=== PATIENT | male | born 1940 | race Caucasian/White ===

== ENCOUNTER 2016-12-02 12:09 | Inpatient (IN) | payer OTHER ==
[~2016-12-02] VITALS: Ht 167.6 cm; Wt 70.9 kg
[~2016-12-02 12:09] MED LIST: ALL180 PO; ASPI81TA28 PO; ATOR-26 PO; CARV3.122 PO; CMD5 PO; INSUINJ4 SQ; ISOS30TA3 PO; LEVO25TA5 PO; LNX125 PO; NTRSLP4 SL; NVLGIPEN SC; SPR25 PO; TORS20TA2 PO
--- NOTE | 2016-12-02 13:58 | DIAGNOSTIC IMAGING REPORT ---
LEFT FOOT MIN 3 VIEWS ROUTINE CLINICAL HISTORY: Left flank pain COMPARISON: None. DISCUSSION: The bony mineralization appears normal for age. There are osteoarthritic changes at the level of the first metatarsal phalangeal joint. There are vascular calcifications present. There is a small plantar calcaneal spur. There is no evidence for soft tissue swelling. IMPRESSION: 1. No acute fracture 2. Mild osteoarthritic changes at the level of the first metatarsal phalangeal joint Electronically signed by: Monster Cody M.D. 12/02/2016 1:57 PM
[2016-12-02 14:12] LABS: BASO % 0.5 %; BASO ABS # 0.03 K/uL (0-0.2); COMPLETE YES; IG% 0.2 %; LYMPH % 15.8 %; LYMPH ABS # 1.01 K/uL (1.2-3.4); MEAN CELL VOLUME 98.8 fL (80-100); MEAN CORPUSCULAR HEMOGLOBIN 32.6 pg (25-34); MEAN PLATELET VOLUME 10.7 fL (7.4-10.4); MONO % 6.9 %; NEUT % 73.6 %; PLATELET COUNT 119 K/uL (130-400); RED BLOOD COUNT 4.05 M/uL (4.7-6.1)
[2016-12-02 14:23] LABS: INR 2.2 (0.9-1.1); PARTIAL THROMBOPLASTIN RATIO 1.4; PROTHROMBIN TIME (PATIENT) 23.9 SECONDS (9.0-12.0)
[2016-12-02] MEDS ORDERED: LEVO100T PO (14:34)
[2016-12-02] MEDS ORDERED: NRN100 PO (14:34)
[2016-12-02] MEDS ORDERED: SACU1TAB PO (14:34)
[2016-12-02] MEDS ORDERED: WARF-246 PO (14:34)
[2016-12-02 14:42] LABS: BUN/CREATININE RATIO 30.3 (10-20); CALCIUM 9.2 mg/dl (8.5-10.1); CREATININE 1.7 mg/dl (0.60-1.40); POTASSIUM 4.7 mmol/L (3.5-5.1); URIC ACID 9.8 mg/dl (2.6-7.2)
[2016-12-02 15:00] LABS: BETA-HYDROXYBUTYRATE 0.71 mg/dL (0.2-2.81)
--- NOTE | 2016-12-02 15:22 | DIAGNOSTIC IMAGING REPORT ---
LEFT LOWER EXTREMITY VENOUS DOPPLER CLINICAL HISTORY: Left foot pain. COMPARISON STUDY: No previous studies for comparison. TECHNIQUE: Sonography of the deep venous system of the left lower extremity was performed. Compression and augmentation were evaluated. FINDINGS: The left common femoral, superficial femoral and popliteal veins were compressible. Augmentation was normal. Flow was shown within the deep calf vessels. IMPRESSION: No evidence of deep venous thrombus within the left lower extremity. Electronically signed by: Ed Phillips M.D. 12/02/2016 3:20 PM
[2016-12-02] MEDS ORDERED: NovoLIN-R INSULIN PER UNIT CHARGE SC STA (15:27)
[2016-12-02] MEDS ORDERED: OXYCODONE HCL IR 5 MG TAB (IMMEDIATE RELEASE) PO STA (15:27)
--- NOTE | 2016-12-02 15:43 | DIAGNOSTIC IMAGING REPORT ---
ULTRASOUND LEFT LOWER EXTREMITY ARTERIAL; ANKLE-BRACHIAL INDICES CLINICAL HISTORY: Left leg pain. TECHNIQUE: Real-time, grayscale, and color Doppler sonography of the arteries of the left lower extremities performed from the inguinal crease to the foot. Ankle-brachial indices are calculated. Ankle brachial indices: Right brachial pressure measures 104. Pressures in the right posterior tibial artery measure 98 for an SONNY of 0.94. Pressures in the right dorsalis pedis could not be calculated as the vessel is noncompressible. Pressures in the left posterior tibial artery measure 68 for an SONNY of 0.65, and pressures in the left dorsalis pedis artery measure 111 for an SONNY of 1.07. Left lower extremity: There is moderate to advanced atherosclerotic plaque and irregularity seen throughout the arteries of the left lower extremity. The left common femoral artery is patent demonstrates biphasic waveforms. Velocities in the left common femoral artery measure up to 67 cm/s. The left profundus femoris artery is patent with velocities measuring up to 149 cm/s. There are monophasic to biphasic waveforms seen in the left proximal superficial femoral artery velocities measuring up to 110 cm/s. There is thrombosis of the mid left superficial femoral artery with collateral vessels. This reconstitutes in the distal superficial femoral artery. There are monophasic waveforms in the distal superficial femoral artery velocities measuring up to 102 cm/s. There are monophasic to biphasic waveforms in the left popliteal artery with blunted arterial upstrokes. Velocities measure up to 30 cm/s the popliteal artery. There is three-vessel runoff to the foot with monophasic flow in the posterior tibial and peroneal arteries. There are monophasic to biphasic waveforms in the anterior tibial artery with velocities measuring up to 63 cm/s. The dorsalis pedis artery is patent with velocities measuring up to 19 cm/s. IMPRESSION: 1. Atherosclerotic plaque and peripheral arterial disease as detailed above. 2. There is thrombosis of the mid left superficial femoral artery with large collateral vessels and reconstitution in the distal left superficial femoral artery. 3. There is three-vessel runoff to the foot. 4. Ankle-brachial indices as above. Electronically signed by: Chester Das M.D. 12/02/2016 3:41 PM
[2016-12-02] MEDS ORDERED: OXGN (17:16)
[2016-12-02] MEDS ORDERED: DMD20 PO (17:16)
[2016-12-02] MEDS ORDERED: INSDGIPEN SC (17:16)
[2016-12-02] MEDS ORDERED: EPLE25TA3 PO (17:16)
[2016-12-02] MEDS ORDERED: LEVO125T72 PO (17:16)
[2016-12-02] MEDS ORDERED: GLUCAGON FOR INJ 1 MG VIAL SQ PRN (17:30)
[2016-12-02] MEDS ORDERED: ACETAMINOPHEN 325 MG TAB PO PRN (17:30)
[2016-12-02] MEDS ORDERED: ONDANSETRON INJ 2 MG/ML 2 ML VIAL IV PRN (17:30)
[2016-12-02] MEDS ORDERED: GLUCOSE 40% GEL 15 GM TUBE PO PRN (17:30)
[2016-12-02] MEDS ORDERED: DEXTROSE 50% 50 ML SYR IV PRN (17:30)
[2016-12-02] MEDS ORDERED: GLUCOSE 10 TABS/TUBE PO PRN (17:30)
[2016-12-02] MEDS ORDERED: HYDROmorphone INJ 1 MG/ML SYR IV PRN (17:45)
--- NOTE | 2016-12-02 18:13 | History and Physical ---
History & Physical Date & Time of Service: Dec 02, 2016 at 17:43 Chief Complaint: L Foot Pain Primary Care Physician: Morris Pearson D.O. 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 Pt reports that 1 week ago he developed L foot pain that he describes as waxing and waning 5/10 "throbbing" pain that at times is sharp and stabbing. Pain is alleviated with elevation of leg and aggravated with ambulation. He has not been taking any pain medication at home. Sxs are assoc with erythema and swelling. He denies similar sxs in the past. Pt denies h /o gout or DVT. He does not drink alcohol. Pt denies fever/chills, chest pain, palpitations, SOB, wheezing, abd pain, N/V, bowel or bladder issues, calf pain, lightheadedness/dizziness. In the ED, vitals are stable. Pt is afebrile with no leukocytosis. Creat 1.7. Glucose 419. Uric acid 9.8. INR 2.2. L foot xray negative for fx. LLE US negative for DVT. LLE arterial US + thrombosis of mid-L superficial femoral artery with large collateral vessels. Pt will be admitted for further evaluation and treatment. Past Medical/Surgical History Medical Problems: (1) CHF (congestive heart failure) Status: Chronic (2) DM2 (diabetes mellitus, type 2) Status: Chronic (3) Heart disease Status: Chronic (4) History of left heart catheterization (LHC) Status: Chronic (5) HLD (hyperlipidemia) Status: Chronic (6) HTN (hypertension) Status: Chronic (7) Hypothyroidism Status: Chronic (8) ICD (implantable cardioverter-defibrillator) in place Status: Chronic (9) Ischemic cardiomyopathy Status: Chronic Surgical Problems: (1) Hx of CABG Permanent Comment: x2 2006 Status: Chronic (2) Hx of tonsillectomy Status: Chronic Family History FH: diabetes mellitus FH: lung disease Social History Smoking Status: Former Smoker (10 pack year history; quit 1969) Alcohol Use: none Drug Use: none Marital Status: Housing status: lives with family Occupational Status: retired Immunizations History of Influenza Vaccine: Yes History of Tetanus Vaccine?: Yes History of Pneumococcal: Yes History of Hepatitis B Vaccine: No Multi-Drug Resistant Organisms History of MDRO: No Allergies Coded Allergies: No Known Drug Allergy (Verified Allergy, Unknown, ., 12/02/16) Home Medications Scheduled Aspirin (Aspirin Ec), 81 MG PO DAILY Atorvastatin (Lipitor), 40 MG PO DAILY Carvedilol (Coreg), 3.125 MG PO BID Digoxin (Digoxin), 0.125 MG PO DAILY@16 Eplerenone (Eplerenone), 12.5 MG PO DAILY Insulin Glargine (Lantus Solostar), 10 UNITS SC HS Isosorbide Mononitrate Ext Rel (Imdur Ext Rel), 15 MG PO QAM Levothyroxine Sodium (Synthroid), 125 MCG PO DAILY Oxygen (Oxygen), 2 LITERS NA HS Sacubitril-Valsartan (Entresto 24-26 mg), 1 TAB PO BID Torsemide (Torsemide), 20 MG PO BID Warfarin Sodium (Warfarin Sodium), 1 TAB PO UD Scheduled PRN Insulin Aspart (Novolog Flexpen), 0 UNITS SC ACHS PRN for Blood sugar Nitroglycerin (Nitrostat), 0.4 MG SL UD PRN for Chest Pain Review of Systems Constitutional: No chills, No fatigue, No fever, No weakness Eyes: No worsening of vision Respiratory: No cough, No shortness of breath Cardiovascular: No chest pain, No claudication, No palpitations Abdomen: No constipation, No diarrhea, No nausea, No pain, No vomiting Musculoskeletal: + problem reported (L foot pain, erythema and edema), No calf pain Genitourinary - Male: No dysuria Neurologic: No weakness Psychiatric: No depression symptoms Endocrine: No fatigue Hematologic / Lymphatic: No abnormal bleeding/bruising Integumentary: No new/changing skin lesions Physical Exam Vital Signs Date Time Temp Pulse Resp B/P Pulse Ox O2 Delivery O2 Flow Rate FiO2 12/02/16 16:43 90 18 124/75 97 Room Air 12/02/16 14:06 61 20 102/64 98 Room Air 12/02/16 12:15 36.5 81 18 115/62 99 Room Air General Appearance: WD/WN, no apparent distress, + pertinent finding (Pt is sittign up in bed with at bedside ) Head: normocephalic, atraumatic Eyes: normal inspection ENT: hearing grossly normal Neck: supple Respiratory/Chest: chest non-tender, lungs clear, normal breath sounds, no respiratory distress Cardiovascular: regular rate, rhythm, no murmur Abdomen/GI: normal bowel sounds, non tender, soft Back: normal inspection Extremities/Musculoskelatal: no calf tenderness, + pertinent finding (L foot diffusely tender to palpation with increased erythema and edema compared to R. 2 + dorsalis pedis pulse in R foot; unable to appreciate dosalis pedis or posterior tobial pulse in L foot) Neurologic/Psych: alert, normal mood/affect, oriented x 3 Skin: warm/dry, no rash Diagnostics Laboratory Results Results Past 24 Hours Test 12/02/16 14:00 12/02/16 17:31 Range/Units White Blood Count 6.40 4.8-10.8 K/uL Red Blood Count 4.05 4.7-6.1 M/uL Hemoglobin 13.2 14.0-18.0 g/dL Hematocrit 40.0 42-52 % Mean Corpuscular Volume 98.8 80-100 fL Mean Corpuscular Hemoglobin 32.6 25-34 pg Mean Corpuscular Hemoglobin Concent 33.0 32-36 g/dl Platelet Count 119 130-400 K/uL Mean Platelet Volume 10.7 7.4-10.4 fL Neutrophils (%) (Auto) 73.6 % Lymphocytes (%) (Auto) 15.8 % Monocytes (%) (Auto) 6.9 % Eosinophils (%) (Auto) 3.0 % Basophils (%) (Auto) 0.5 % Neutrophils # (Auto) 4.72 1.4-6.5 K/uL Lymphocytes # (Auto) 1.01 1.2-3.4 K/uL Monocytes # (Auto) 0.44 0.11-0.59 K/uL Eosinophils # (Auto) 0.19 0-0.5 K/uL Basophils # (Auto) 0.03 0-0.2 K/uL RDW Standard Deviation 55.1 36.4-46.3 fL RDW Coefficient of Variation 15.1 11.5-14.5 % Immature Granulocyte % (Auto) 0.2 % Immature Granulocyte # (Auto) 0.01 0.00-0.02 K/uL Prothrombin Time 23.9 9.0-12.0 SECONDS Prothromb Time International Ratio 2.2 0.9-1.1 Activated Partial Thromboplast Time 35.5 21.0-31.0 SECONDS Partial Thromboplastin Ratio 1.4 Sodium Level 138 136-145 mmol/L Potassium Level 4.7 3.5-5.1 mmol/L Chloride Level 101 98-107 mmol/L Carbon Dioxide Level 28 21-32 mmol/L Anion Gap 9.0 3-11 mmol/L Blood Urea Nitrogen 52 7-18 mg/dl Creatinine 1.70 0.60-1.40 mg/dl Est Creatinine Clear Calc Drug Dose 34.4 ml/min Estimated GFR () 45.0 Estimated GFR (Non- 38.9 BUN/Creatinine Ratio 30.3 10-20 Random Glucose 419 70-99 mg/dl Uric Acid 9.8 2.6-7.2 mg/dl Calcium Level 9.2 8.5-10.1 mg/dl Beta-Hydroxybutyric Acid 0.71 0.2-2.81 mg/dL Diagnostic Radiology L FOOT XRAY IMPRESSION: 1. No acute fracture 2. Mild osteoarthritic changes at the level of the first metatarsal phalangeal joint LLE VENOUS US IMPRESSION: No evidence of deep venous thrombus within the left lower extremity. LLE ARTERIAL US IMPRESSION: 1. Atherosclerotic plaque and peripheral arterial disease as detailed above. 2. There is thrombosis of the mid left superficial femoral artery with large collateral vessels and reconstitution in the distal left superficial femoral artery. 3. There is three-vessel runoff to the foot. 4. Ankle-brachial indices as above. EKG EKG: AV dual paced rhythm at 61 bpm with no acute ischemic changes; when compared to EKG from 04/28/16 PVCs are no longer present Impression Assessment and Plan L FOOT PAIN pt presents with L foot pain assoc with erythema and edema -admit observation status to med/surg -afebrile with no leukocytosis -L foot xray negative for fx and LLE venous US negative for DVT -LLE arterial US + thrombosis of mid-L superficial femoral artery with large collateral vessels -cannot obtain CTA angiogram of LLE due to chronic kidney disease -pt already on Coumadin with therapeutic INR - lactic acid -wnl -consult vascular surgery, Dr. Truong-pending input -monitor CKD STAGE 3 -creatinine currently 1.7; baseline 1.3-1.5 -monitor with prp daily and avoid nephrotoxic agents when able CAD -s/p CABG x 2 in 2006 -ICD placed 2012 -cont ASA, BB, Imdur, statin -pt denies acute coronary sxs SYSTOLIC CHF -pt does not appear fluid overloaded -echo 06/13/16 EF 27% with akinesis and thinning of inferior, inferolateral, anterolateral and apical henriquez as well as L ventricular wall segments severely hypokinetic. Mild aortic regurg, mod mitral regurg and mod tricuspid regurg -cont digoxin, BB, torsemide and eplerenone -monitor I&Os and daily weights H/O MURAL THROMBUS OF CARDIAC APEX -see echo results above -cont Coumadin -INR therapeutic at 2.2; continue to monitor daily INSULIN-DEPENDENT DM 2 -recent A1C 9.9; patient is non-compliant with ISS -cont Lantus -start ISS -monitor BSG ACHS -consult dinkey engine firer/fireman to review ISS protocol HYPOTHYROIDISM -cont levothyroxine HTN -BP stable -cont Coreg and Entresto -monitor DYSLIPIDEMIA -cont statin DVT PROPHYLAXIS -cont Coumadin CODE STATUS -FULL CODE status per discussion with patient upon admission DISPO -Pt seen in collaboration with Dr. Avila. Please see her addendum for further details. Thanks! pt seen and examined, in agreement with above H&P 76 yo M presented with acute left foot pain -on going for past few days , worsened today Xray of left foot -no evidence of Fx has elevated uric acid level L foot xray negative for fx and LLE venous US negative for DVT -LLE arterial US + thrombosis of mid-L superficial femoral artery with large collateral vessels P/E: Gen ; no apparent distress , comfortable HEENT: sclera non icteric , PERRLA/EOMI HT: regular S1/S2 Lungs: CTA abdomen: soft. non tender EXT: left automatic bow maker machine tender and swollen most pronounced at ist metatarsal joint ; + erythema , normal exam of rt foot Neuro; no focal neurological deficit A/P : Left foot pain : Gout ? vs inflammatory arthritis -pt does not prior hx of Gout attack + warmth /erythema elevated uric acid level , will order for C reactive protein, Sed rate can not treat with NSAID -indomethacin due to YASIR /CKD ordered for Prednisone 5 mg PO daily cont pain control keep foot elevated LEFT LOWER EXT ARTERIAL THROMBOSIS : has prior significant PVD lactic acid negative pt is already anticoagulation with Coumadin ; INR therapeutic Vascular surgery consulted YASIR : has CKD stage 3 , Baseline Cr 1.3-1.5 Cr elevated 1.7 gentle hydration repeat PRP avoid NSAID , contrast studies Severe ischemic cardiomyopathy : EF 27 % has AICD hx of cardiac thrombus on Coumadin INR therapeutic gentle IV hydration for above follow vol status FULL CODE Level of Care Med/Surg Resuscitation Status FULL RESUSCITATION VTE Prophylaxis VTE Risk Assessment Done? Y/N: Yes Risk Level: Moderate Given or contraindicated: Warfarin (Coumadin)
[2016-12-02 19:15] VITALS: BP 136/78; PULSE 76; TEMP 36.5; O2SAT 97
[2016-12-02] MEDS ORDERED: IV FLUIDS COMPLETED PRN (19:15)
[2016-12-02 19:16] VITALS: BMI 25.2
[2016-12-02] MEDS ORDERED: PNEUMOCOCCAL POLYSACCHARIDES 25 MCG/0.5 ML VIAL/SYR IM. ONE (20:15)
[2016-12-02] MEDS ORDERED: PNEUMOCOCCAL ADMINISTRATION CHARGE ONE (20:15)
[2016-12-02] MEDS: INSULIN ASPART 100 UNITS/ML 3 ML PEN SC SCH (20:36)
[2016-12-02] MEDS: TORSEMIDE 20 MG TAB PO SCH (20:38)
[2016-12-02] MEDS: DOCUSATE SODIUM 100 MG CAP PO SCH (20:38)
[2016-12-02] MEDS: SACUBITRIL-VALSARTAN 24-26 MG TAB PO SCH (20:40)
[2016-12-02] MEDS: CARVEDILOL 3.125 MG TAB PO SCH (20:40)
[2016-12-02] MEDS: WARFARIN SOD 5 MG TAB PO SCH (20:40)
[2016-12-02] MEDS: DIGOXIN 0.125 MG TAB PO SCH (20:41)
[2016-12-02] MEDS ORDERED: INSULIN GLARGINE SOLOSTAR 100 UNITS/ML 3 ML PEN SC SCH (21:00)
--- NOTE | 2016-12-02 21:04 | EMERGENCY ROOM VISIT NOTE ---
History Report prepared by Rl: Sahra Zamora Under the Supervision of: Dr. Alejandro Cardona M.D. First contact with patient: 13:08 Chief Complaint: FOOT PAIN Stated Complaint: L FOOT PAIN History of Present Illness The patient is a 76 year old male who presents to the Emergency Room with complaints of worsening left foot pain for the past week. He notes swelling, redness, and throbbing pain. He rates his current pain as a 4/10 in severity. He denies any trauma or injury to the foot and any pain radiating into his left leg. He denies any personal history of gout or DVT. He denies abdominal pain, fever, and new or worsening chest pain or shortness of breath. Source of History: patient, spouse/significant other Onset: a week ago Position: foot (left) Symptom Intensity: 4/10 Quality: other (throbbing) Timing: worsening Associated Symptoms: No SOB, No abdominal pain, No chest pain, No fevers Review of Systems See HPI for pertinent positives & negatives. A total of 10 systems reviewed and were otherwise negative. Past Medical & Surgical Medical Problems: (1) CHF (congestive heart failure) (2) DM2 (diabetes mellitus, type 2) (3) Heart disease (4) History of left heart catheterization (LHC) (5) HLD (hyperlipidemia) (6) HTN (hypertension) (7) Hypothyroidism (8) ICD (implantable cardioverter-defibrillator) in place (9) Ischemic cardiomyopathy (10) PVD (peripheral vascular disease) Surgical Problems: (1) Hx of CABG (2) Hx of tonsillectomy Old medical records were reviewed. Nurse's notes were reviewed and I agree with. Family History FH: diabetes mellitus FH: lung disease Social History Smoking Status: Never Smoker Smokeless Tobacco Use: No Alcohol Use: none Drug Use: none Marital Status: Housing Status: lives with significant other Occupation Status: retired Current/Historical Medications Scheduled Aspirin (Aspirin Ec), 81 MG PO DAILY Atorvastatin (Lipitor), 40 MG PO DAILY Carvedilol (Coreg), 3.125 MG PO BID Digoxin (Digoxin), 0.125 MG PO DAILY@16 Eplerenone (Eplerenone), 12.5 MG PO DAILY Insulin Glargine (Lantus Solostar), 10 UNITS SC HS Isosorbide Mononitrate Ext Rel (Imdur Ext Rel), 15 MG PO QAM Levothyroxine Sodium (Synthroid), 125 MCG PO DAILY Oxygen (Oxygen), 2 LITERS NA HS Sacubitril-Valsartan (Entresto 24-26 mg), 1 TAB PO BID Torsemide (Torsemide), 20 MG PO BID Warfarin Sodium (Warfarin Sodium), 1 TAB PO UD Scheduled PRN Insulin Aspart (Novolog Flexpen), 0 UNITS SC ACHS PRN for Blood sugar Nitroglycerin (Nitrostat), 0.4 MG SL UD PRN for Chest Pain Allergies Coded Allergies: No Known Drug Allergy (Verified Allergy, Unknown, ., 12/02/16) Physical Exam Vital Signs Date Time Temp Pulse Resp B/P Pulse Ox O2 Delivery O2 Flow Rate FiO2 12/02/16 16:43 90 18 124/75 97 Room Air 12/02/16 14:06 61 20 102/64 98 Room Air 12/02/16 12:15 36.5 81 18 115/62 99 Room Air Physical Exam General: Well developed well nourished non-ill appearing older male in no acute distress, breathing comfortably on room air. Normal speech HEENT: Normal cephalic atraumatic. Pupils are equal round and reactive to light. Extraocular movements are intact. Oropharynx is pink with moist mucous membranes. No swelling of the mouth lips or tongue. Neck: Supple with a midline trachea. No meningeal signs or stiffness, no JVD or bruits. No Stridor. Chest: Clear to auscultation bilaterally. No wheezes or rhonchi. No increased work of breathing. Heart: regular rate and rhythm. Abdomen: Soft nontender, nondistended without rebound guarding or rigidity. Extremities: Left foot is slightly pink compared to right, good capillary refill , tender at the base of the toe, no calf tenderness. Spine/Back. Non tender to palpation. No CVA tenderness Skin: Good turgor without rashes. Neurologic exam: Cranial nerves two through 12 are intact. Motor and sensation are intact and symmetrical throughout. Medical Decision & Procedures ER Provider Diagnostic Interpretation: Radiology results as stated below per my review and radiologist interpretation: ULTRASOUND LEFT LOWER EXTREMITY ARTERIAL; ANKLE-BRACHIAL INDICES CLINICAL HISTORY: Left leg pain. TECHNIQUE: Real-time, grayscale, and color Doppler sonography of the arteries of the left lower extremities performed from the inguinal crease to the foot. Ankle-brachial indices are calculated. Ankle brachial indices: Right brachial pressure measures 104. Pressures in the right posterior tibial artery measure 98 for an SONNY of 0.94. Pressures in the right dorsalis pedis could not be calculated as the vessel is noncompressible. Pressures in the left posterior tibial artery measure 68 for an SONNY of 0.65, and pressures in the left dorsalis pedis artery measure 111 for an SONNY of 1.07. Left lower extremity: There is moderate to advanced atherosclerotic plaque and irregularity seen throughout the arteries of the left lower extremity. The left common femoral artery is patent demonstrates biphasic waveforms. Velocities in the left common femoral artery measure up to 67 cm/s. The left profundus femoris artery is patent with velocities measuring up to 149 cm/s. There are monophasic to biphasic waveforms seen in the left proximal superficial femoral artery velocities measuring up to 110 cm/s. There is thrombosis of the mid left superficial femoral artery with collateral vessels. This reconstitutes in the distal superficial femoral artery. There are monophasic waveforms in the distal superficial femoral artery velocities measuring up to 102 cm/s. There are monophasic to biphasic waveforms in the left popliteal artery with blunted arterial upstrokes. Velocities measure up to 30 cm/s the popliteal artery. There is three-vessel runoff to the foot with monophasic flow in the posterior tibial and peroneal arteries. There are monophasic to biphasic waveforms in the anterior tibial artery with velocities measuring up to 63 cm/s. The dorsalis pedis artery is patent with velocities measuring up to 19 cm/s. IMPRESSION: 1. Atherosclerotic plaque and peripheral arterial disease as detailed above. 2. There is thrombosis of the mid left superficial femoral artery with large collateral vessels and reconstitution in the distal left superficial femoral artery. 3. There is three-vessel runoff to the foot. 4. Ankle-brachial indices as above. Electronically signed by: Chester Das M.D. 12/02/2016 3:41 PM LEFT LOWER EXTREMITY VENOUS DOPPLER CLINICAL HISTORY: Left foot pain. COMPARISON STUDY: No previous studies for comparison. TECHNIQUE: Sonography of the deep venous system of the left lower extremity was performed. Compression and augmentation were evaluated. FINDINGS: The left common femoral, superficial femoral and popliteal veins were compressible. Augmentation was normal. Flow was shown within the deep calf vessels. IMPRESSION: No evidence of deep venous thrombus within the left lower extremity. Electronically signed by: Ed Phillips M.D. 12/02/2016 3:20 PM LEFT FOOT MIN 3 VIEWS ROUTINE CLINICAL HISTORY: Left flank pain COMPARISON: None. DISCUSSION: The bony mineralization appears normal for age. There are osteoarthritic changes at the level of the first metatarsal phalangeal joint. There are vascular calcifications present. There is a small plantar calcaneal spur. There is no evidence for soft tissue swelling. IMPRESSION: 1. No acute fracture 2. Mild osteoarthritic changes at the level of the first metatarsal phalangeal joint Electronically signed by: Monster Cody M.D. 12/02/2016 1:57 PM Laboratory Results 12/02/16 14:00 Red Blood Count 4.05, Mean Corpuscular Volume 98.8, Mean Corpuscular Hemoglobin 32.6, Mean Corpuscular Hemoglobin Concent 33.0, Mean Platelet Volume 10.7, Neutrophils (%) (Auto) 73.6, Lymphocytes (%) (Auto) 15.8, Monocytes (%) (Auto) 6.9, Eosinophils (%) (Auto) 3.0, Basophils (%) (Auto) 0.5, Neutrophils # (Auto) 4.72, Lymphocytes # (Auto) 1.01, Monocytes # (Auto) 0.44, Eosinophils # (Auto) 0.19, Basophils # (Auto) 0.03 12/02/16 14:00 Test 12/02/16 14:00 White Blood Count 6.40 K/uL (4.8-10.8) Red Blood Count 4.05 M/uL (4.7-6.1) Hemoglobin 13.2 g/dL (14.0-18.0) Hematocrit 40.0 % (42-52) Mean Corpuscular Volume 98.8 fL (80-100) Mean Corpuscular Hemoglobin 32.6 pg (25-34) Mean Corpuscular Hemoglobin Concent 33.0 g/dl (32-36) Platelet Count 119 K/uL (130-400) Mean Platelet Volume 10.7 fL (7.4-10.4) Neutrophils (%) (Auto) 73.6 % Lymphocytes (%) (Auto) 15.8 % Monocytes (%) (Auto) 6.9 % Eosinophils (%) (Auto) 3.0 % Basophils (%) (Auto) 0.5 % Neutrophils # (Auto) 4.72 K/uL (1.4-6.5) Lymphocytes # (Auto) 1.01 K/uL (1.2-3.4) Monocytes # (Auto) 0.44 K/uL (0.11-0.59) Eosinophils # (Auto) 0.19 K/uL (0-0.5) Basophils # (Auto) 0.03 K/uL (0-0.2) RDW Standard Deviation 55.1 fL (36.4-46.3) RDW Coefficient of Variation 15.1 % (11.5-14.5) Immature Granulocyte % (Auto) 0.2 % Immature Granulocyte # (Auto) 0.01 K/uL (0.00-0.02) Prothrombin Time 23.9 SECONDS (9.0-12.0) Prothromb Time International Ratio 2.2 (0.9-1.1) Activated Partial Thromboplast Time 35.5 SECONDS (21.0-31.0) Partial Thromboplastin Ratio 1.4 Anion Gap 9.0 mmol/L (3-11) Est Creatinine Clear Calc Drug Dose 34.4 ml/min Estimated GFR () 45.0 Estimated GFR (Non- 38.9 BUN/Creatinine Ratio 30.3 (10-20) Uric Acid 9.8 mg/dl (2.6-7.2) Calcium Level 9.2 mg/dl (8.5-10.1) Beta-Hydroxybutyric Acid 0.71 mg/dL (0.2-2.81) Laboratory studies as stated above per my review. Medications Administered Medications (Trade) Dose Ordered Sig/Fadi Route Start Time Stop Time Status Last Admin Dose Admin Insulin Human Regular (novoLIN-R U-100 PER UNIT) 4 units NOW STAT SC 12/02/16 15:27 12/02/16 15:29 DC 12/02/16 15:35 4 UNITS Oxycodone HCl (Roxicodone Immediate Rel Tab) 5 mg NOW STAT PO 12/02/16 15:27 12/02/16 15:29 DC 12/02/16 15:33 5 MG ECG Indication: other Rate (beats per minute): 61 Rhythm: other (dual chamber paced) Findings: no acute ischemic change, no ectopy Comparison ECG Date: 04/28/16 Change: PVCs are now absent. ED Course 1308: Past medical records reviewed. The patient was evaluated in room C9, and a complete history and physical examination were performed. 152: I reassessed the patient at this time. He is still experiencing pain. 1527: Oxycodone HCl 5 mg PO, Insulin Human Regular 4 units SC 1612: I reassessed the patient at this time. He is feeling better and resting comfortably. I discussed the results and treatment plan with the patient. I answered all pertaining questions that he had. He expressed understanding and verbalized agreement. 1614: At this time I spoke with Dr. Truong of vascular surgery. We discussed the patient's results and treatment plan. He recommended that the patient remain in the hospital. 1626: I spoke with Ashleigh Obregon PA-C. We discussed the patients results and treatment plan. The patient will be evaluated by the [facility] for further management. Medical Decision Differential diagnoses includes gout, infection, arterial insufficiency, DVT, electrolyte or metabolic abnormality, trauma. This patient comes in as described above. He's had foot pain for about a week. On exam the left foot is slightly red compared to the right. It does appear to well perfused. It is difficult to palpate reliable pulses on either foot. He does have good capillary refill. He is tender palpation, mostly at the base of the first toe. This could be gout. IV access established, blood work was obtained. He does have a history of having significant. Disease. He is on Coumadin his INR is slightly low at 2.2 ultrasound shows no evidence of DVT arterial ultrasound shows a femoral clot with collaterals. This most likely is chronic. I did discuss the case with Dr. Truong, who felt this was chronic with the foot pain. It could be that he is having ischemic pain from small vessels. His uric acid is mildly elevated and he could also have gout. Alternatively, he could have infection but has nothing to suggest sepsis. I do think given the circumstances, he should be admitted for further treatment and evaluation. I did consult [facility] and they saw an ER and will admit him for these measures. Consults Time Called: 1611 Consulting Physician: Dr. Truong Returned Call: 1614 At this time I spoke with Dr. Truong of vascular surgery. We discussed the patient's results and treatment plan. He recommended that the patient remain in the hospital. Additional Consults: Time Called: 1621 Consulted Physician: Ashleigh Obregon PA-C Returned Call: 1626 Additional Comments: I spoke with Ashleigh Obregon PA-C. We discussed the patients results and treatment plan. [facility] Impression Primary Impression: Peripheral arterial disease Additional Impression: Foot pain, left Scribe Attestation The scribe's documentation has been prepared under my direction and personally reviewed by me in its entirety. I confirm that the note above accurately reflects all work, treatment, procedures, and medical decision making performed by me. Departure Information Dispostion Being Evaluated By Hospitalist Referrals Morris Pearson, D.O. (PCP) Patient Instructions A Signature Page, My [facility]
[2016-12-02] MEDS ORDERED: PHARMACY GLYCEMIC MGMT CONSULT PRN (23:00)
[2016-12-02] MEDS ORDERED: HYDROmorphone INJ 1 MG/ML SYR IV SCH (23:00)
[2016-12-02] MEDS ORDERED: SODIUM CHLORIDE 0.9% 1000ML 1,000 ML IV SCH (23:00)
[2016-12-02 23:25] VITALS: BP 107/64; PULSE 60; TEMP 36.7; O2SAT 97
[2016-12-03] VITALS (7 sets, daily range): BP systolic 100–159; BP diastolic 57–83; PULSE 58–78; TEMP 36.5–36.9; O2SAT 93–98; Ht 167.6 cm; Wt 70.9 kg
[2016-12-03] MEDS ORDERED: HYDROmorphone INJ 1 MG/ML SYR IV PRN (01:45)
[2016-12-03] MEDS: LEVOTHYROXINE 125 MCG TAB PO SCH (05:35)
[2016-12-03 06:55] LABS: HEMATOCRIT 40.1 % (42-52); MEAN CORPUSCULAR HEMOGLOBIN 32.3 pg (25-34); MEAN CORPUSCULAR HGB CONC 32.9 g/dl (32-36); MEAN PLATELET VOLUME 10.7 fL (7.4-10.4); PLATELET COUNT 108 K/uL (130-400); RED BLOOD COUNT 4.09 M/uL (4.7-6.1); WHITE BLOOD COUNT 6.81 K/uL (4.8-10.8)
[2016-12-03 07:03] LABS: PROTHROMBIN TIME (PATIENT) 22.4 SECONDS (9.0-12.0)
[2016-12-03 07:32] LABS: BUN/CREATININE RATIO 34.5 (10-20); CALCIUM 9.5 mg/dl (8.5-10.1); CREATININE 1.5 mg/dl (0.60-1.40); POTASSIUM 4.2 mmol/L (3.5-5.1); URIC ACID 10.2 mg/dl (2.6-7.2)
[2016-12-03 07:49] LABS: ESTIMATED AVERAGE GLUCOSE 278 mg/dl; HA1C FLAG Normal (Normal)
[2016-12-03] MEDS: DOCUSATE SODIUM 100 MG CAP PO SCH ×2 (08:57→20:51)
[2016-12-03] MEDS: CARVEDILOL 3.125 MG TAB PO SCH ×2 (08:57→20:51)
[2016-12-03] MEDS: SACUBITRIL-VALSARTAN 24-26 MG TAB PO SCH ×2 (08:59→20:51)
[2016-12-03] MEDS: ASPIRIN 81 MG ECTAB PO SCH (08:59)
[2016-12-03] MEDS: TORSEMIDE 20 MG TAB PO SCH (08:59)
[2016-12-03] MEDS: ISOSORBIDE MONONITRATE 30 MG TABCR PO SCH (09:00)
[2016-12-03] MEDS ORDERED: INSULIN GLARGINE SOLOSTAR 100 UNITS/ML 3 ML PEN SC SCH ×2 (09:00→21:00)
[2016-12-03] MEDS: ATORVASTATIN 40 MG TAB PO SCH (09:00)
[2016-12-03] MEDS: INSULIN ASPART 100 UNITS/ML 3 ML PEN SC SCH ×4 (09:33→20:54)
[2016-12-03] MEDS: OXYCODONE HCL IR 5 MG TAB (IMMEDIATE RELEASE) PO PRN (11:35)
--- NOTE | 2016-12-03 15:48 | Pharmacy Progress Note ---
Glycemic Control Intl Consult Date of Service Dec 03, 2016. Scope Glycemic Pharmacist consulted by Dr Avila on 12/02/16 for glycemic control and to write orders per [facility] inpatient glycemic control protocol Objective Weight (Kilograms): 70.900 Accuchecks BSG (last 24hrs): Test 12/02/16 19:36 12/03/16 06:45 12/03/16 07:51 12/03/16 12:30 Bedside Glucose 154 mg/dl (70-99) 150 mg/dl (70-99) 206 mg/dl (70-99) Random Glucose 149 mg/dl (70-99) Laboratory Data (last 24hrs) Test 12/03/16 06:45 Anion Gap 11.0 mmol/L BUN/Creatinine Ratio 34.5 Blood Urea Nitrogen 52 mg/dl Creatinine 1.50 mg/dl Hemoglobin A1c 11.3 % Potassium Level 4.2 mmol/L Sodium Level 140 mmol/L White Blood Count 6.81 K/uL HbA1c Test 12/03/16 06:45 Hemoglobin A1c 11.3 % (4.5-5.6) H Recent Pertinent Medications Outpatient Anti-diabetic Regimen: * Lantus 10 u SQ HS * Novolog sliding scale The patient is currently receiving: * Basal insulin: Lantus 10 SQ units HS * Correctional Insulin: Novolog Correction per scale ACHS Goal Range: Low 110 mg/dL - High 140 mg/dL Correction Factor: 30 mg/dL/unit * Prandial insulin: Per carb ratio of 1 unit per 10 grams CHO consumed Risk Factors for Insulin Resistance: * Steroids: Prednisone 5 mg PO daily * IVF: NS * Diet: DM2 Assessment & Plan ASSESSMENT: * 75 yo T2DM M admitted with L foot pain * Most recent A1c 11.3% indicative of poorly controlled diabetes as an outpatient (A1c up from 10.5% in March 2016) * Pt takes Lantus 10 units HS at home but only 1 unit of Novolog if BSG >180 mg /dL * When patient was previously admitted in May 2016, he was motivated to get diabetes under control and wanted to try a basal/bolus approach * Pharmacy provided him with a sliding scale and since he was to be adding Novolog to his regimen, the Lantus was adjusted accordingly * Since discharge he hasn't been using Novolog appropriately so his A1c has continued to worsen * informatics educator already spoke with him and he is very frustrated with his blood sugars and does not understand sliding scale * Plan will be to continue home Lantus and weight-based Novolog * Prior to discharge we need to revisit a new home regimen that the patient can understand (SET Novolog doses with meals) and provide additional counselling * ADA & AACE recommend a goal blood sugar range 140-180 mg/dl for the majority of critically ill & non-critically ill patients. However, more stringent targets may be selected in individual cases. PLAN FOR INPATIENT GLYCEMIC CONTROL: * Basal insulin with LANTUS 10 units SQ HS * Correctional Insulin with NOVOLOG per scale ACHS * Goal Range: Low 110 mg/dL - High 140 mg/dL * Correction Factor: 30 mg/dL/unit * Nutritional / Prandial insulin per carb ratio of 1 unit per 10 grams CHO consumed LOOKING AHEAD TO DISCHARGE: * Revisit home regimen (set Novolog doses) * Provide additional counselling with CDE * Please note that the plan above was derived based on current level of insulin resistance and hospital stress. These recommendations are appropriate for inpatient admission only. Plan of care upon discharge will need to be reassessed to avoid potential outpatient hypo/hyperglycemia. Thank you.
[2016-12-03] MEDS: DIGOXIN 0.125 MG TAB PO SCH (15:55)
[2016-12-03] MEDS ORDERED: WARFARIN SOD 2.5 MG TAB PO SCH (16:00)
--- NOTE | 2016-12-03 16:59 | Progress Note ---
Medicine Progress Note Date & Time of Visit: Dec 03, 2016 at 16:53. Subjective patient seen resting in bed, comfortable states left foot pain is about the same, worse with ambulation denies chest pain, dyspnea, dizziness, palpitations no other symptoms Objective Last 8 Hrs Date Time Temp Pulse Resp B/P Pulse Ox O2 Delivery O2 Flow Rate FiO2 12/03/16 15:55 63 12/03/16 15:54 63 12/03/16 15:45 93 Room Air 12/03/16 15:05 36.8 61 16 111/66 93 Room Air 12/03/16 14:40 78 96 Physical Exam: General-oriented x 3, not in distress, speaks in sentences with no effort Head- atraumatic Eyes- EOMI, anicteric Neck- supple, no JVD Lungs- clear to auscultation bilaterally Heart- normal rate, regular rhythm; no murmurs Abdomen- normal bowel sounds, soft, nontender Extremities- mild left foot edema, fair pulses no calf tenderness, no cyanosis Neuro- alert, oriented x 3; no gross focal deficits Skin- warm & dry Laboratory Results: Last 24 Hours Test 12/02/16 18:16 12/02/16 19:36 12/03/16 06:45 12/03/16 07:51 Lactic Acid Level 1.0 mmol/L Bedside Glucose 154 mg/dl 150 mg/dl White Blood Count 6.81 K/uL Red Blood Count 4.09 M/uL Hemoglobin 13.2 g/dL Hematocrit 40.1 % Mean Corpuscular Volume 98.0 fL Mean Corpuscular Hemoglobin 32.3 pg Mean Corpuscular Hemoglobin Concent 32.9 g/dl RDW Standard Deviation 54.3 fL RDW Coefficient of Variation 15.1 % Platelet Count 108 K/uL Mean Platelet Volume 10.7 fL Prothrombin Time 22.4 SECONDS Prothromb Time International Ratio 2.0 Sodium Level 140 mmol/L Potassium Level 4.2 mmol/L Chloride Level 102 mmol/L Carbon Dioxide Level 27 mmol/L Anion Gap 11.0 mmol/L Blood Urea Nitrogen 52 mg/dl Creatinine 1.50 mg/dl Est Creatinine Clear Calc Drug Dose 39.0 ml/min Estimated GFR () 52.4 Estimated GFR (Non- 45.2 BUN/Creatinine Ratio 34.5 Random Glucose 149 mg/dl Estimated Average Glucose 278 mg/dl Hemoglobin A1c 11.3 % Uric Acid 10.2 mg/dl Calcium Level 9.5 mg/dl Test 12/03/16 12:30 12/03/16 16:36 Bedside Glucose 206 mg/dl 203 mg/dl Assessment & Plan L FOOT PAIN , IN THE SETTING OF LEFT SUPERFICIAL FEMORAL ARTERY THROMBOSIS pt presents with L foot pain assoc with erythema and edema -L foot xray negative for fx and LLE venous US negative for DVT -LLE arterial US + thrombosis of mid-L superficial femoral artery with large collateral vessels -cannot obtain CTA angiogram of LLE due to chronic kidney disease -pt already on Coumadin with therapeutic INR - evaluated by Dr. Truong possible Angiography with Intervention on INR 2.0, on coumadin - on Prednisone for possible component of gout CKD STAGE 3 - crea improved to 1.5 from 1.7 (baseline 1.5) - stop IV fluids hold Torsemide and Eplerenone today -monitor with prp daily and avoid nephrotoxic agents when able CAD -s/p CABG x 2 in 2006 -ICD placed 2012 -cont ASA, BB, Imdur, statin - no cardiac symptoms SYSTOLIC CHF -echo 06/13/16 EF 27% with akinesis and thinning of inferior, inferolateral, anterolateral and apical henriquez as well as L ventricular wall segments severely hypokinetic. Mild aortic regurg, mod mitral regurg and mod tricuspid regurg - admitted with elevated crea resume torsemide and eplerenone tomorrow if renal function remain stable - cont digoxin, BB H/O MURAL THROMBUS OF CARDIAC APEX -see echo results above -cont Coumadin -INR therapeutic at 2.0; continue to monitor daily INSULIN-DEPENDENT DM 2 -recent A1C 9.9; patient is non-compliant with ISS -cont Lantus -start ISS -monitor BSG ACHS -consult consumer educator to review ISS protocol - will consult Pharmacy glycemic control HYPOTHYROIDISM -cont levothyroxine HTN -BP stable -cont Coreg and Entresto -monitor DYSLIPIDEMIA -cont statin DVT PROPHYLAXIS -cont Coumadin CODE STATUS -FULL CODE status per discussion with patient upon admission DISPO pending Current Inpatient Medications: Current Inpatient Medications Medications (Trade) Dose Ordered Sig/Fadi Route Start Time Stop Time Status Last Admin Dose Admin Insulin Aspart (novoLOG ASPART) SLIDING SCALE If C... ACHS SC 12/02/16 21:00 01/01/17 20:59 1/3/17 12:40 6 UNITS Glucose (Glucose 40% Gel) 15-30 GRAMS 15 GRAMS... UD PRN PO 12/02/16 17:30 01/01/17 17:29 Glucose (Glucose Chew Tab) 4-8 Tablets 4 Tabl... UD PRN PO 12/02/16 17:30 01/01/17 17:29 Dextrose (Dextrose 50% 50ML Syringe) 25-50ML OF 50% DW IV FOR... UD PRN IV 12/02/16 17:30 01/01/17 17:29 Glucagon (Glucagon Inj) 1 mg UD PRN SQ 12/02/16 17:30 01/01/17 17:29 Aspirin (Ecotrin Tab) 81 mg DAILY PO 12/03/16 09:00 01/02/17 08:59 12/03/16 08:59 81 MG Atorvastatin Calcium (Lipitor Tab) 40 mg DAILY PO 12/03/16 09:00 01/02/17 08:59 12/03/16 09:00 40 MG Carvedilol (Coreg Tab) 3.125 mg BID PO 12/02/16 21:00 01/01/17 20:59 12/03/16 08:57 3.125 MG Digoxin (Lanoxin Tab) 0.125 mg DAILY@16 PO 12/03/16 16:00 01/02/17 15:59 12/03/16 15:55 0.125 MG Isosorbide Mononitrate (Imdur Ext Rel Tab) 15 mg QAM PO 12/03/16 09:00 01/02/17 08:59 12/03/16 09:00 15 MG Levothyroxine Sodium (Synthroid Tab) 125 mcg DAILYBB PO 12/03/16 06:00 01/02/17 06:59 12/03/16 05:35 125 MCG Sacubitril/ Valsartan (Entresto 24-26 Mg) 1 tab BID PO 12/02/16 21:00 01/01/17 20:59 12/03/16 08:59 1 TAB Warfarin Sodium (Coumadin Tab) 5 mg SuMoWeThFr@1600 PO 12/02/16 20:00 01/01/17 19:59 12/02/16 20:40 5 MG Miscellaneous Information (Order Awaiting Action) 1 ea QS N/A 12/03/16 00:00 01/02/17 00:00 Acetaminophen (Tylenol Tab) 650 mg Q4H PRN PO 12/02/16 17:30 01/01/17 17:29 Ondansetron HCl (Zofran Inj) 4 mg Q6H PRN IV 12/02/16 17:30 01/01/17 17:29 Warfarin Sodium (Coumadin Tab) 2.5 mg TuSa@1600 PO 12/03/16 16:00 01/02/17 15:59 12/03/16 15:56 2.5 MG Oxycodone HCl (Roxicodone Immediate Rel Tab) 5 mg Q4H PRN PO 12/02/16 17:45 12/16/16 17:44 12/03/16 11:35 5 MG Docusate Sodium (coLACE CAP) 100 mg BID PO 12/02/16 21:00 01/01/17 20:59 12/03/16 08:57 100 MG Miscellaneous (Iv Fluids Completed) 1 ea PRN PRN N/A 12/02/16 19:15 12/02/17 19:14 Hydromorphone HCl (Dilaudid Inj) 1 mg Q4H PRN IV 12/03/16 01:45 12/17/16 01:44 Prednisone (PredniSONE TAB) 5 mg DAILY PO 12/03/16 09:00 01/02/17 08:59 12/03/16 09:00 5 MG Miscellaneous Information (Consult Glycemic Management Pharmacy) 1 ea UD PRN N/A 12/02/16 23:00 01/01/17 22:59 Insulin Glargine (Lantus Solostar Pen) 10 unit HS SC 12/03/16 21:00 01/02/17 20:59
[2016-12-04] MEDS: OXYCODONE HCL IR 5 MG TAB (IMMEDIATE RELEASE) PO PRN ×2 (00:39→15:24)
[2016-12-04] MEDS: LEVOTHYROXINE 125 MCG TAB PO SCH (05:39)
[2016-12-04 06:59] VITALS: BP 107/67; PULSE 76; TEMP 36.7; O2SAT 96
[2016-12-04 07:19] LABS: INR 2.4 (0.9-1.1); PROTHROMBIN TIME (PATIENT) 26.7 SECONDS (9.0-12.0)
[2016-12-04 08:36] LABS: BUN/CREATININE RATIO 43.5 (10-20); CALCIUM 9.4 mg/dl (8.5-10.1); CREATININE 1.4 mg/dl (0.60-1.40); POTASSIUM 4.4 mmol/L (3.5-5.1)
[2016-12-04] MEDS: SACUBITRIL-VALSARTAN 24-26 MG TAB PO SCH ×2 (09:23→21:39)
[2016-12-04] MEDS: ASPIRIN 81 MG ECTAB PO SCH (09:24)
[2016-12-04] MEDS: ISOSORBIDE MONONITRATE 30 MG TABCR PO SCH (09:24)
[2016-12-04] MEDS: CARVEDILOL 3.125 MG TAB PO SCH ×2 (09:24→21:43)
[2016-12-04] MEDS: ATORVASTATIN 40 MG TAB PO SCH (09:24)
[2016-12-04] MEDS: DOCUSATE SODIUM 100 MG CAP PO SCH ×2 (09:24→21:40)
[2016-12-04] MEDS: INSULIN ASPART 100 UNITS/ML 3 ML PEN SC SCH ×4 (09:30→21:52)
[2016-12-04] MEDS: INSULIN GLARGINE SOLOSTAR 100 UNITS/ML 3 ML PEN SC SCH ×2 (09:31→21:53)
--- NOTE | 2016-12-04 09:39 | Pharmacy Progress Note ---
Glycemic Control: Progress Nt Date of Service Dec 04, 2016. Scope Glycemic Pharmacist consulted by Dr Avila on 12/02/16 for glycemic control and to write orders per [facility] inpatient glycemic control protocol. Objective Accuchecks BSG (last 24hrs): Test 12/03/16 12:30 12/03/16 16:36 12/03/16 20:30 12/04/16 06:42 Bedside Glucose 206 mg/dl (70-99) 203 mg/dl (70-99) 243 mg/dl (70-99) Random Glucose 158 mg/dl (70-99) Test 12/04/16 07:02 Bedside Glucose 162 mg/dl (70-99) Laboratory Data (last 24hrs) Test 12/04/16 06:42 Anion Gap 10.0 mmol/L BUN/Creatinine Ratio 43.5 Blood Urea Nitrogen 61 mg/dl Creatinine 1.40 mg/dl Potassium Level 4.4 mmol/L Sodium Level 137 mmol/L HbA1c: Test 12/03/16 06:45 Hemoglobin A1c 11.3 % (4.5-5.6) H This result can be unreliable in patients with CKD d/t interactions between the A1c analyzing technique and high levels of urea, reduced RBC life span, iron deficiency anemia, and EPO administration. HbA1c > 7.5% in ESRD patient may overestimate the extent of hyperglycemia in ESRD patients. Recent Pertinent Medications Outpatient Anti-diabetic Regimen: * Lantus 10 units SQ HS * NovoLog SSI for BSG > 180 mg/dl The patient is currently receiving: * Basal insulin: Lantus 10 units every 24 hours given at bedtime * Correctional Insulin: Novolog Correction per scale ACHS Goal Range: Low 110 mg/dL - High 140 mg/dL Correction Factor: 30 mg/dL/unit * Prandial insulin: Per carb ratio of 1 unit per 10 grams CHO consumed Risk Factors for Insulin Resistance: * Steroids * Diet * Baseline poor control Assessment & Plan ASSESSMENT: * Most recent A1c 11.3% indicative of poorly controlled diabetes as an outpatient (A1c up from 10.5% in March 2016). However, BSG trends are not consistent with A1c = 11.3% therefore this value may be over estimating the extent of hyperglycemia in patient. * Pt takes Lantus 10 units HS at home but only 1 unit of Novolog if BSG >180 mg /dL * When patient was previously admitted in May 2016, he was motivated to get diabetes under control and wanted to try a basal/bolus approach * Pharmacy provided him with a sliding scale and since he was to be adding Novolog to his regimen, the Lantus was adjusted accordingly * Since discharge he hasn't been using Novolog appropriately so his A1c has continued to worsen * software educator already spoke with him and he is very frustrated with his blood sugars and does not understand sliding scale * Prior to discharge we need to revisit a new home regimen that the patient can understand (SET Novolog doses with meals) and provide additional counselling * Patient has received 40 units of insulin over the past 24hrs * 10 units of basal insulin + 30 units of prandial/correctional insulin --> this needs more evenly distributed between basal:prandial * BSGs ranging 150-243mg/dl * AM fasting is slightly above goal range and patient received correctional insulin at each accu-check--> will increase basal insulin * Post-prandial BSGs elevated but consistent --> increasing basal insulin should bring baseline BSG down and current scale will keep BSGs down. No change needed at this time. * ADA & AACE recommend a goal blood sugar range 140-180 mg/dl for the majority of critically ill & non-critically ill patients. However, more stringent targets may be selected in individual cases. Will utilize more stringent target of 110-140mg/dl based on co-morbidities (PVD). PLAN FOR INPATIENT GLYCEMIC CONTROL: * INCREASE Basal insulin with LANTUS 10 units SQ BID * NO CHANGE Correctional Insulin with NOVOLOG per scale ACHS or Q6hrs while NPO * Goal Range: Low 110 mg/dL - High 140 mg/dL * Correction Factor: 30 mg/dL/unit * Nutritional / Prandial insulin per carb ratio of 1 unit per 10 grams CHO consumed LOOKING AHEAD TO DISCHARGE: * Revisit home regimen (set Novolog doses) * Provide additional counselling with CDE * Please note that the plan above was derived based on current level of insulin resistance and hospital stress. These recommendations are appropriate for inpatient admission only. Plan of care upon discharge will need to be reassessed to avoid potential outpatient hypo/hyperglycemia. Thank you.
--- NOTE | 2016-12-04 12:18 | Progress Note ---
Medicine Progress Note Date & Time of Visit: Dec 04, 2016 at 12:08. Subjective patient seen sleeping in bed, comfortable, easily rousable states he feels fine overall left foot pain about the same as yesterday, managed with pain medication no chest pain, dyspnea, dizziness, palpitations denies other symptoms Objective Last 8 Hrs Date Time Temp Pulse Resp B/P Pulse Ox O2 Delivery O2 Flow Rate FiO2 12/04/16 08:30 Room Air 12/04/16 06:59 36.7 76 19 107/67 96 Room Air Physical Exam: General-oriented x 3, not in distress, speaks in sentences with no effort Eyes- anicteric Neck- no JVD Lungs- clear to auscultation bilaterally, no rales/wheeze Heart- normal rate, regular rhythm; no murmurs Abdomen- normal bowel sounds, soft, nontender Extremities- mild left foot edema and erythema, fair pulses, no calf tenderness , no cyanosis Neuro- alert, oriented x 3; no gross focal deficits Skin- warm & dry Laboratory Results: Last 24 Hours Test 12/03/16 12:30 12/03/16 16:36 12/03/16 20:30 12/04/16 06:42 Bedside Glucose 206 mg/dl 203 mg/dl 243 mg/dl Prothrombin Time 26.7 SECONDS Prothromb Time International Ratio 2.4 Sodium Level 137 mmol/L Potassium Level 4.4 mmol/L Chloride Level 103 mmol/L Carbon Dioxide Level 24 mmol/L Anion Gap 10.0 mmol/L Blood Urea Nitrogen 61 mg/dl Creatinine 1.40 mg/dl Est Creatinine Clear Calc Drug Dose 41.7 ml/min Estimated GFR () 57.0 Estimated GFR (Non- 49.1 BUN/Creatinine Ratio 43.5 Random Glucose 158 mg/dl Calcium Level 9.4 mg/dl Test 12/04/16 07:02 12/04/16 11:30 Bedside Glucose 162 mg/dl 290 mg/dl Assessment & Plan LEFT FOOT PAIN , IN THE SETTING OF LEFT SUPERFICIAL FEMORAL ARTERY THROMBOSIS pt presents with L foot pain assoc with erythema and edema -L foot xray negative for fx and LLE venous US negative for DVT -LLE arterial US + thrombosis of mid-L superficial femoral artery with large collateral vessels -cannot obtain CTA angiogram of LLE due to chronic kidney disease -pt already on Coumadin with therapeutic INR - evaluated by Dr. Truong possible Angiography with Intervention on tomorrow- will verify with Vascular Surgery INR 2.4, on coumadin- will discuss with Vascular Surgery re: possible reversal for procedure tomorrow - on Prednisone for possible component of gout ACUTE RENAL FAILURE ON CKD STAGE 3 - RESOLVED - crea improved to 1.4 from 1.7 - stopped IV fluids Torsemide and Eplerenone on hold- will discuss with Cardiology - monitor with prp daily and avoid nephrotoxic agents when able CAD -s/p CABG x 2 in 2006 -ICD placed 2012 -cont ASA, BB, Imdur, statin - no cardiac symptoms - Cardiology consulted for Pre op Eval SYSTOLIC CHF -echo 06/13/16 EF 27% with akinesis and thinning of inferior, inferolateral, anterolateral and apical henriquez as well as L ventricular wall segments severely hypokinetic. Mild aortic regurg, mod mitral regurg and mod tricuspid regurg - admitted with elevated crea may need to resume torsemide and eplerenone today- will discuss with Cardiology - cont digoxin, BB H/O MURAL THROMBUS OF CARDIAC APEX -see echo results above -cont Coumadin -INR therapeutic at 2.4;will discuss with Vascular Surgery re: possible reversal for procedure tomorrow INSULIN-DEPENDENT DM 2 -recent A1C 9.9; patient is non-compliant with ISS -cont Lantus -start ISS -monitor BSG ACHS Pharmacy glycemic control HYPOTHYROIDISM -cont levothyroxine HTN -BP stable -cont Coreg and Entresto -monitor DYSLIPIDEMIA -cont statin DVT PROPHYLAXIS -cont Coumadin CODE STATUS -FULL CODE status per discussion with patient upon admission DISPO pending Current Inpatient Medications: Current Inpatient Medications Medications (Trade) Dose Ordered Sig/Fadi Route Start Time Stop Time Status Last Admin Dose Admin Insulin Aspart (novoLOG ASPART) SLIDING SCALE If C... ACHS SC 12/02/16 21:00 01/01/17 20:59 12/04/16 09:30 9 UNITS Glucose (Glucose 40% Gel) 15-30 GRAMS 15 GRAMS... UD PRN PO 12/02/16 17:30 01/01/17 17:29 Glucose (Glucose Chew Tab) 4-8 Tablets 4 Tabl... UD PRN PO 12/02/16 17:30 01/01/17 17:29 Dextrose (Dextrose 50% 50ML Syringe) 25-50ML OF 50% DW IV FOR... UD PRN IV 12/02/16 17:30 01/01/17 17:29 Glucagon (Glucagon Inj) 1 mg UD PRN SQ 12/02/16 17:30 01/01/17 17:29 Aspirin (Ecotrin Tab) 81 mg DAILY PO 12/03/16 09:00 01/02/17 08:59 12/04/16 09:24 81 MG Atorvastatin Calcium (Lipitor Tab) 40 mg DAILY PO 12/03/16 09:00 01/02/17 08:59 12/04/16 09:24 40 MG Carvedilol (Coreg Tab) 3.125 mg BID PO 12/02/16 21:00 01/01/17 20:59 12/04/16 09:24 3.125 MG Digoxin (Lanoxin Tab) 0.125 mg DAILY@16 PO 12/03/16 16:00 01/02/17 15:59 12/03/16 15:55 0.125 MG Isosorbide Mononitrate (Imdur Ext Rel Tab) 15 mg QAM PO 12/03/16 09:00 01/02/17 08:59 12/04/16 09:24 15 MG Levothyroxine Sodium (Synthroid Tab) 125 mcg DAILYBB PO 12/03/16 06:00 01/02/17 06:59 12/04/16 05:39 125 MCG Sacubitril/ Valsartan (Entresto 24-26 Mg) 1 tab BID PO 12/02/16 21:00 01/01/17 20:59 12/04/16 09:23 1 TAB Warfarin Sodium (Coumadin Tab) 5 mg SuMoWeThFr@1600 PO 12/02/16 20:00 01/01/17 19:59 12/02/16 20:40 5 MG Miscellaneous Information (Order Awaiting Action) 1 ea QS N/A 12/03/16 00:00 01/02/17 00:00 Acetaminophen (Tylenol Tab) 650 mg Q4H PRN PO 12/02/16 17:30 01/01/17 17:29 Ondansetron HCl (Zofran Inj) 4 mg Q6H PRN IV 12/02/16 17:30 01/01/17 17:29 Warfarin Sodium (Coumadin Tab) 2.5 mg TuSa@1600 PO 12/03/16 16:00 01/02/17 15:59 12/03/16 15:56 2.5 MG Oxycodone HCl (Roxicodone Immediate Rel Tab) 5 mg Q4H PRN PO 12/02/16 17:45 12/16/16 17:44 12/04/16 00:39 5 MG Docusate Sodium (coLACE CAP) 100 mg BID PO 12/02/16 21:00 01/01/17 20:59 12/04/16 09:24 100 MG Miscellaneous (Iv Fluids Completed) 1 ea PRN PRN N/A 12/02/16 19:15 12/02/17 19:14 Hydromorphone HCl (Dilaudid Inj) 1 mg Q4H PRN IV 12/03/16 01:45 12/17/16 01:44 Prednisone (PredniSONE TAB) 5 mg DAILY PO 12/03/16 09:00 01/02/17 08:59 12/04/16 09:24 5 MG Miscellaneous Information (Consult Glycemic Management Pharmacy) 1 ea UD PRN N/A 12/02/16 23:00 01/01/17 22:59 Insulin Glargine (Lantus Solostar Pen) 10 unit BID SC 12/04/16 09:00 01/03/17 08:59 12/04/16 09:31 10 UNIT
[2016-12-04] MEDS ORDERED: MAGNESIUM HYDROXIDE SUSP 30 ML UDC PO PRN (12:30)
[2016-12-04] MEDS: WARFARIN SOD 5 MG TAB PO SCH (15:25)
[2016-12-04] MEDS: DIGOXIN 0.125 MG TAB PO SCH (15:26)
--- NOTE | 2016-12-04 16:34 | Cardiology Consultation ---
Cardiology Consultation Cardiology Consultation: Date: 12/04/16 Requesting: Dr. Hale Attending Loan Approver: Dr. Miranda CC: Preoperative Evaluation and risk assessment SUBJECTIVE: Ulises Taveras is a 76 year old male who presented to [facility] yesterday with complaints of left lower extremity pain x 1 week. Pain worse with ambulation. He came to ER for evaluation and found to have thrombosis of the mid left superficial femoral artery with collateral vessels. Vascular surgery has been consulted and he is to undergo probable angiography and possible intervention tomorrow. Cardiology was asked to see him in the preop setting due to significant history of cardiovascular issues. He typically follows with Dr. Valdes/CLAUDIA Samayoa/Mary as outpatient. He has a significant history of ischemic cardiomyopathy with LVEF< 15% s/p ICD in place, prior LV mural thrombus noted in March 2016 now on chronic anticoagulation therapy resolved per repeat echo in 05/2016 with mildly improved LV funciton to 27%, recent diagnosis of atrial flutter on pacer/ICD interrogation (asymptomatic and rate controlled). In the past 5 months patient reports feeling "Better than ever". He has more energy, able to walk [place] short distances without exertional symptoms, no recent hospitalizations for CHF (last in March 2016), no recent chest pain. Weight has been stable. No worsening LE edema, orthopnea, PND or cough. At time of consult patient reports feeling relatively well except for left LE pain. Mild erythema of foot noted. Faint pulses present. Review of Systems: See HPI for pertinent Past Medical History: 1.Remote coronary artery bypass grafting, ischemic cardiomyopathy 2.Severe LV systolic dysfunction with past LVEF less than 15%. 3.NYHA Class IIIb, stage C CHF 4.High grade AV block in addition to ischemic CM prompting BiV - ICD implantation. 5.December 2012 catheterization with a patent PEÑA to LAD, occluded SVG to OM, SVG to right PDA was patent with poor run off. 6.December 2015 NSTEMI vs STEMI managed medically. 7.Left ventricular apical thrombus observed at [facility] in March 2016 8.Stage 3 chronic kidney disease 9.Hypertension 10.Dyslipidemia 11.Type 2 diabetes mellitus 12.Hypothyroidism 13.Meniere's disease PAST SURGICAL HISTORY: 1. Coronary bypass grafting surgery x3 in 2006 with a PEÑA to the LAD, vein graft to the PDA and vein graft to the OM; most recent catheterization in 2012 showing patent PEÑA, occluded vein graft to the OM and patent vein graft to the PDA with poor runoff. 2. Biventricular ICD placement, May 2013. 3. Tonsillectomy. 4. Colonoscopy. FAMILY HISTORY: Noncontributory. SOCIAL HISTORY: The patient is a former smoker. Denies any alcohol or recreational drug use. He is and lives at home with his . [place] farm Review of patient's allergies indicates: No Known Allergies Current Outpatient Prescriptions Reported Home Medications Medications Dose Route/Sig Max Daily Dose Days Date Category Oxygen Gas 2 Liters NA HS 12/02/16 Reported Lantus Solostar (Insulin Glargine) 100 Unit/Ml Inj 10 Units SC HS 12/02/16 Reported Torsemide 20 Mg Tab 20 Mg PO BID 12/02/16 Reported Eplerenone 25 Mg Tab 12.5 Mg PO DAILY 12/02/16 Reported Synthroid (Levothyroxine Sodium) 125 Mcg Tab 125 Mcg PO DAILY 12/02/16 Reported Warfarin Sodium 5 Mg Tab 1 Tab PO UD 12/02/16 Reported Entresto 24-26 mg (Sacubitril-Valsartan) 1 Tab Tab 1 Tab PO BID 12/02/16 Reported Novolog Flexpen (Insulin Aspart) 100 Units/Ml Inj 0 Units SC ACHS PRN 30 05/03/16 Rx Nitrostat (Nitroglycerin) 0.4 Mg/1 Tab Subl 0.4 Mg SL UD PRN 30 01/02/16 Rx Digoxin 0.125 Mg Tab 0.125 Mg PO DAILY@16 30 01/02/16 Rx Coreg (Carvedilol) 3.125 Mg Tab 3.125 Mg PO BID 30 12/30/15 Reported Imdur Ext Rel (Isosorbide Mononitrate) 30 Mg Ertab 15 Mg PO QAM 12/30/15 Reported Lipitor (Atorvastatin Calcium) 80 Mg Tab 40 Mg PO DAILY 12/30/15 Reported Aspirin Ec (Aspirin) 81 Mg Tab 81 Mg PO DAILY 12/30/15 Reported OBJECTIVE/PHYSICAL EXAMINATION: Last 8 Hrs Date Time Temp Pulse Resp B/P Pulse Ox O2 Delivery O2 Flow Rate FiO2 12/04/16 08:30 Room Air BP on my examination was 122/74 via the left arm General: A&Ox3. NAD. HEENT: Normcephalic. Atraumatic. PER. Conjunctiva are pink and non-injected, sclera clear Neck: Normal JVP. Chest: Normal shape and normal respiratory effort Lungs: Clear to auscultation Heart: RRR, 74 bpm. Soft apical systolic murmur. No rub. Extremities: No edema. No clubbing. No cyanosis Neuro: Grossly normal exam Psych: Appropriate affect and insight. Data: EKG on admission - AV dual-paced rhythm Biventricular pacemaker detected Abnormal ECG When compared with ECG of 28-APR-2016 06:47, Premature ventricular complexes are no longer Present Vent. rate has decreased BY 5 BPM US of Left foot: IMPRESSION: 1. Atherosclerotic plaque and peripheral arterial disease as detailed above. 2. There is thrombosis of the mid left superficial femoral artery with large collateral vessels and reconstitution in the distal left superficial femoral artery. 3. There is three-vessel runoff to the foot. 4. Ankle-brachial indices as above. Last 24 Hours Test 12/03/16 16:36 12/03/16 20:30 12/04/16 06:42 12/04/16 07:02 Bedside Glucose 203 mg/dl 243 mg/dl 162 mg/dl Prothrombin Time 26.7 SECONDS Prothromb Time International Ratio 2.4 Sodium Level 137 mmol/L Potassium Level 4.4 mmol/L Chloride Level 103 mmol/L Carbon Dioxide Level 24 mmol/L Anion Gap 10.0 mmol/L Blood Urea Nitrogen 61 mg/dl Creatinine 1.40 mg/dl Est Creatinine Clear Calc Drug Dose 41.7 ml/min Estimated GFR () 57.0 Estimated GFR (Non- 49.1 BUN/Creatinine Ratio 43.5 Random Glucose 158 mg/dl Calcium Level 9.4 mg/dl Test 12/04/16 11:30 Bedside Glucose 290 mg/dl June 13, 2016 TTE Interpretation Summary (as per Dr. Card): The remaining left ventricular wall segments are severely hypokinetic. Calculated LV ejection Fraction = 27% (bi-plane method of discs). Akinesis and thinning of the inferior, inferolateral, anterolateral and apical henriquez. The right ventricular systolic function is reduced as assessed by tricuspid annular plane systolic excursion (TAPSE< 1.6 cm). Mild aortic valve regurgitation is present. Moderate mitral regurgitation is present. Moderate tricuspid regurgitation is present. ASSESSMENT: 1. Preoperative cardiology evaluation and risk assessment prior to undergoing vascular angiography and possible intervention on left lower extremity due to arterial thrombosis. 2. History of severe ischemic cardiomyopathy with prior EF less than 15%. Currently (May 2016) 25-30%. 3.Prior NYHA functional class III-IV, stage C CHF. Compensated volume status today. Dyspnea now class II- stable. 4.S/P BIV pacemaker/ICD implanted May 2013 for SSS and transient complete heart block the day of presentation for AICD. Appropriate functioning ICD in . 5.Asymptomatic paroxysmal atrial flutter with a controlled ventricular response 6.Anticoagulation initiated with the finding of LV apical mural thrombus in March 2016 and atrial flutter. INR has been therapeutic dating back to October 2016. . 7.DARRELL (lisinopril) induced cough. Tolerating Entresto very well. 8.Catheterization 12/2012 showing patent PEÑA to LAD, occluded SVG to OM and SVG to right PDA was patent with poor run off. 9.Hospitalization for late presentation of NSTEMI vs STEMI in December 2015. Infarct completed (symptom onset 4 days prior to arrival), managed medically. 10.Admission to [facility] in March 2016 with acute decompensated heart failure. No recent hospitalizations since that time. RECOMMENDATIONS/PLAN: Stable cardiac signs/symptoms. He is considered high operative risk for perioperative cardiac complications, however he has no acute symptoms of angina or CHF and no further testing would reduce/improve his surgerical risk, therefore no additional testing is warranted at this time. Continue Coumadin and ASA. IV heparin for subtherapeutic INR. Monitor closely. continue all cardiac medications. Case discussed with Ddr. Miranda. Will follow. (Noemí Miller PALeticiaC) Cardiology attending: Pt seen and examined, agree with findings and assessment as per Noemí Sousa. Pt was counseled that he would be a high risk for adverse kike-operative event with his underlying disease but that no further intervention would lower that risk. Pt states that he understands, he is accepting of that risk and wishes to proceed. No need to delay from cardiac standpoint. Medication changes as above. Will follow along during hospital stay. (Terrance Miranda D.O.)
[2016-12-04 16:41] VITALS: BP 106/66; PULSE 61; TEMP 36.7; O2SAT 94
[2016-12-04 23:50] VITALS: BP_SYST 110; BP_SYST 145; BP_DIAS 75; PULSE 76; TEMP 36.6; O2SAT 96
[2016-12-05] MEDS: LEVOTHYROXINE 125 MCG TAB PO SCH (05:27)
[2016-12-05 07:36] VITALS: BP 104/67; PULSE 71; TEMP 36.5; O2SAT 95
[2016-12-05] MEDS: INSULIN ASPART 100 UNITS/ML 3 ML PEN SC SCH ×4 (08:00→21:07)
[2016-12-05 08:09] LABS: INR 2.8 (0.9-1.1); PROTHROMBIN TIME (PATIENT) 30.8 SECONDS (9.0-12.0)
[2016-12-05] MEDS ORDERED: INSULIN GLARGINE SOLOSTAR 100 UNITS/ML 3 ML PEN SC ONE (08:30)
[2016-12-05 08:41] VITALS: BP 104/67; PULSE 71; TEMP 36.5; O2SAT 95
[2016-12-05] MEDS: ATORVASTATIN 40 MG TAB PO SCH (08:57)
[2016-12-05] MEDS: DOCUSATE SODIUM 100 MG CAP PO SCH ×2 (08:57→20:56)
[2016-12-05] MEDS: ASPIRIN 81 MG ECTAB PO SCH (08:57)
[2016-12-05] MEDS: ISOSORBIDE MONONITRATE 30 MG TABCR PO SCH (08:58)
[2016-12-05] MEDS: SACUBITRIL-VALSARTAN 24-26 MG TAB PO SCH ×2 (08:58→20:57)
[2016-12-05] MEDS: CARVEDILOL 3.125 MG TAB PO SCH ×2 (08:58→20:58)
[2016-12-05] MEDS: EPLERENONE 25 MG TAB PO SCH (08:59)
[2016-12-05] MEDS ORDERED: SODIUM CHLORIDE 0.9% 1000ML 1,000 ML IV SCH (09:00)
--- NOTE | 2016-12-05 10:46 | Cardiology Follow-Up ---
Subjective General Date of Service: Dec 05, 2016. Chief Complaint: left foot pain Pt evaluation today including: conversation w/ patient, physical exam, chart review, lab review, review of studies, conversation w/ retail client solutions consultant, review of inpatient medication list History of Present Illness Patient resting in bed comfortably this AM. Left foot pain improved from yesterday but states symptoms worsen with ambulation. No chest pain or SOB. No orthopnea, PND or worsening LE edema. No dizziness, palpitations, syncope or near syncope. Offers no complaints at this time. Allergies Coded Allergies: No Known Drug Allergy (Verified Allergy, Unknown, ., 12/02/16) Social History Smoking Status: Never Smoker Hx Tobacco Use In Past Year?: No Hx Alcohol Use - Type And Amou: No Hx Substance Use - Type And Am: No Problem List Medical Problems: (1) Acute [place] Status: Acute (2) Elevated troponin Status: Acute (3) Foot pain, left Status: Acute (4) Peripheral arterial disease Status: Acute (5) Peripheral edema Status: Acute Review of Systems Respiratory: No cough, No dyspnea at rest, No dyspnea on exertion, No hemoptysis, No shortness of breath, No sputum, No wheezing Cardiac: No PND, No chest pain, No edema, No orthopnea, No palpitations Physical Exam Vital Signs Last Vital Signs Documentation Date Time Temp Pulse Resp B/P Pulse Ox O2 Delivery O2 Flow Rate FiO2 12/05/16 08:41 36.5 71 16 104/67 95 Room Air Physical Exam Constitutional: General Apperance: heathly-appearing Level of Distress: NAD Psychiatric: Mental Status: active & alert Head: normocephalic Eyes: Pupils: PERRLA Neck: supple Lungs: Respiratory effort: no dyspnea Auscultation: no wheezing, no rales/crackles, no rhonchi Cardiovascular: Heart Auscultation: RRR, normal S1, normal S2, II/ CINDY Peripheral Pulses: Bruits: none appreciated Dorsalis Pedis Pulse: decreased on the left, decreased on the right Abdomen: Bowel Sounds: normal Inspection & Palpation: soft, non-distended Extremities: no clubbing (No ), edema (1+ pedal edema L >R) Assessment and Plan Assessment and Plan ASSESSMENT: 1. Preoperative cardiology evaluation and risk assessment prior to undergoing vascular angiography and possible intervention on left lower extremity due to arterial thrombosis. 2. History of severe ischemic cardiomyopathy with prior EF less than 15%. Currently (May 2016) 25-30%. 3.Prior NYHA functional class III-IV, stage C CHF. Compensated volume status today. Dyspnea now class II- stable. 4.S/P BIV pacemaker/ICD implanted May 2013 for SSS and transient complete heart block the day of presentation for AICD. Appropriate functioning ICD in . 5.Asymptomatic paroxysmal atrial flutter with a controlled ventricular response 6.Anticoagulation initiated with the finding of LV apical mural thrombus in March 2016 and atrial flutter. INR has been therapeutic dating back to October 2016. . 7.DARRELL (lisinopril) induced cough. Tolerating Entresto very well. 8.Catheterization 12/2012 showing patent PEÑA to LAD, occluded SVG to OM and SVG to right PDA was patent with poor run off. 9.Hospitalization for late presentation of NSTEMI vs STEMI in December 2015. Infarct completed (symptom onset 4 days prior to arrival), managed medically. 10.Admission to [facility] in March 2016 with acute decompensated heart failure. No recent hospitalizations since that time. RECOMMENDATIONS/PLAN: Stable cardiac signs/symptoms. Plans for vascular angiography + possible intervention of left lower extremity today. Gentle hydration only. D/C fluids post op given severe cardiomyopathy and high risk for CHF. He is considered high operative risk for perioperative cardiac complications, however he has no acute symptoms of angina or CHF and no further testing would reduce/improve his surgical risk, therefore no additional testing is warranted at this time. Continue Coumadin and ASA. IV heparin for subtherapeutic INR. Monitor closely. Continue all cardiac medications. Case discussed with Dr. Miranda. Will follow. Cardiology attending: Pt seen and examined, agree with assessment and plan as per Noemí Miller PA-C. Pt for intervention today. Risk as previously discussed. Will follow afterwards. Laboratory Results Last 24 Hours Test 12/04/16 11:30 12/04/16 17:06 12/04/16 20:45 12/05/16 07:34 Bedside Glucose 290 mg/dl 208 mg/dl 166 mg/dl 114 mg/dl Test 12/05/16 07:50 Prothrombin Time 30.8 SECONDS Prothromb Time International Ratio 2.8
[2016-12-05] MEDS ORDERED: HEPARIN SOD (PORCINE) 1000 UNIT/ML 10 ML VIAL ONE (10:52)
[2016-12-05] MEDS ORDERED: FENTANYL CITRATE INJ 50 MCG/1 ML 2 ML VIAL ONE (10:53)
[2016-12-05] MEDS ORDERED: MIDAZOLAM HCL 1 MG/ML 2ML VIAL ONE (10:53)
[2016-12-05] MEDS ORDERED: PHYTONADIONE INJ 5 MG in SODIUM CHLORIDE 0.9% 50ML 50 ML IV ONE (11:15)
--- NOTE | 2016-12-05 11:21 | Progress Note ---
Progress Note Patient's INR now 2.8, increased from yesterday. Angio with intervention will have an increased risk of bleeding from the puncture site or the intervened site. Will need to cancel his procedure. Can not reschedule till Friday. If patient is d/c'd, then due to his insurance, he needs to be seen by [facility] vascular surgery.
[2016-12-05] MEDS ORDERED: TORSEMIDE 20 MG TAB PO ONE (11:26)
[2016-12-05] MEDS ORDERED: [UNRECOGNIZED DRUG - REMARK] ONE (12:00)
[2016-12-05] MEDS ORDERED: CEFAZOLIN 1000MG/55 ML D5W 55 ML IV SCH (12:00)
--- NOTE | 2016-12-05 12:11 | Pharmacy Progress Note ---
Glycemic: Assessment & Plan Date of Service Dec 05, 2016. Assessment & Plan * The patient is currently receiving 40-50 units of insulin per day. BSGs ranging 114 - 290 mg/dl over the past 24hrs. * Pt has been NPO in prep for OR today. OR with Dr. Truong cancelled today d/t rise in INR from yesterday. * Pt given partial dose of Lantus (5 units) this morning d/t NPO status and BSG near low end of goal range (114mg/dl). * Continue current inpatient glycemic regimen this afternoon. CONTINUE: * Basal insulin: Lantus 10 units every 12 hours; 1/2 dose for BSG below 110 mg/dl * Correctional Insulin: Novolog Correction per scale ACHS Goal Range: Low 110 mg/dL - High 140 mg/dL Correction Factor: 30 mg/dL/unit * Prandial insulin: Per carb ratio of 1 unit per 10 grams CHO consumed BSGs continue to improve, no changes needed to inpatient regimen at this time. Pharmacy will continue to monitor patient daily and write orders per [facility] inpatient glycemic control protocol. Thanks. * Please note that the plan above was derived based on current level of insulin resistance and hospital stress. These recommendations are appropriate for inpatient admission only. Plan of care upon discharge will need to be reassessed to avoid potential outpatient hypo/hyperglycemia.
--- NOTE | 2016-12-05 13:37 | Progress Note ---
Medicine Progress Note Date & Time of Visit: Dec 05, 2016 at 13:31. Subjective patient states he feels ok overall left foot pain is slightly better- still has some numbness, worse with walking no chest pain, dyspnea, palpitations, dizziness no other symptoms Objective Last 8 Hrs Date Time Temp Pulse Resp B/P Pulse Ox O2 Delivery O2 Flow Rate FiO2 12/05/16 08:41 36.5 71 16 104/67 95 Room Air 12/05/16 08:00 Room Air 12/05/16 07:36 36.5 71 16 104/67 95 Room Air Physical Exam: General-oriented x 3, not in distress, speaks in sentences with no effort Eyes- anicteric Neck- no JVD Lungs- clear to auscultation bilaterally, no rales/wheezes Heart- normal rate, regular rhythm; no murmurs Abdomen- normal bowel sounds, soft, nontender Extremities- mild left foot edema and erythema, fair pulses, no calf tenderness , no cyanosis Neuro- alert, oriented x 3; no gross focal deficits Skin- warm & dry Laboratory Results: Last 24 Hours Test 12/04/16 17:06 12/04/16 20:45 12/05/16 07:34 12/05/16 07:50 Bedside Glucose 208 mg/dl 166 mg/dl 114 mg/dl Prothrombin Time 30.8 SECONDS Prothromb Time International Ratio 2.8 Test 12/05/16 11:57 Bedside Glucose 118 mg/dl Assessment & Plan LEFT FOOT PAIN , IN THE SETTING OF LEFT SUPERFICIAL FEMORAL ARTERY THROMBOSIS pt presents with L foot pain assoc with erythema and edema -L foot xray negative for fx and LLE venous US negative for DVT -LLE arterial US + thrombosis of mid-L superficial femoral artery with large collateral vessels -cannot obtain CTA angiogram of LLE due to chronic kidney disease -pt already on Coumadin with therapeutic INR - evaluated by Dr. Truong - INR 2.[address] Truong, INR should be 2.2 or below on surgery day ( tentative 12/09/15- friday) will order coumadin 4mg today, then check INR daily, adjust coumadin - on Prednisone for possible component of gout ACUTE RENAL FAILURE ON CKD STAGE 3 - RESOLVED - crea improved to 1.4 from 1.7 - stopped IV fluids resume Torsemide and Eplerenone - monitor with prp daily and avoid nephrotoxic agents when able CAD -s/p CABG x 2 in 2006 -ICD placed 2012 -cont ASA, BB, Imdur, statin - no cardiac symptoms - Cardiology consulted for Pre op Eval, appreciate the recommendations SYSTOLIC CHF -echo 06/13/16 EF 27% with akinesis and thinning of inferior, inferolateral, anterolateral and apical henriquez as well as L ventricular wall segments severely hypokinetic. Mild aortic regurg, mod mitral regurg and mod tricuspid regurg - admitted with elevated crea crea improved resumed Torsemide and Eplerenon - cont digoxin, BB H/O MURAL THROMBUS OF CARDIAC APEX -see echo results above -cont Coumadin per Vascular, INR should be 2.2 or below on surgery day (tentative 12/09/15- friday) INSULIN-DEPENDENT DM 2 -recent A1C 9.9; patient is non-compliant with ISS -cont Lantus - ISS -monitor BSG [facility] Pharmacy glycemic control HYPOTHYROIDISM -cont levothyroxine HTN -BP stable -cont Coreg and Entresto -monitor DYSLIPIDEMIA -cont statin DVT PROPHYLAXIS -cont Coumadin CODE STATUS -FULL CODE status per discussion with patient upon admission DISPO pending Current Inpatient Medications: Current Inpatient Medications Medications (Trade) Dose Ordered Sig/Fadi Route Start Time Stop Time Status Last Admin Dose Admin Insulin Aspart (novoLOG ASPART) SLIDING SCALE If C... ACHS SC 12/02/16 21:00 01/01/17 20:59 12/04/16 21:52 1 UNITS Glucose (Glucose 40% Gel) 15-30 GRAMS 15 GRAMS... UD PRN PO 12/02/16 17:30 01/01/17 17:29 Glucose (Glucose Chew Tab) 4-8 Tablets 4 Tabl... UD PRN PO 12/02/16 17:30 01/01/17 17:29 Dextrose (Dextrose 50% 50ML Syringe) 25-50ML OF 50% DW IV FOR... UD PRN IV 12/02/16 17:30 01/01/17 17:29 Glucagon (Glucagon Inj) 1 mg UD PRN SQ 12/02/16 17:30 01/01/17 17:29 Aspirin (Ecotrin Tab) 81 mg DAILY PO 12/03/16 09:00 01/02/17 08:59 12/05/16 08:57 81 MG Atorvastatin Calcium (Lipitor Tab) 40 mg DAILY PO 12/03/16 09:00 01/02/17 08:59 12/05/16 08:57 40 MG Carvedilol (Coreg Tab) 3.125 mg BID PO 12/02/16 21:00 01/01/17 20:59 12/05/16 08:58 3.125 MG Digoxin (Lanoxin Tab) 0.125 mg DAILY@16 PO 12/03/16 16:00 01/02/17 15:59 12/04/16 15:26 0.125 MG Isosorbide Mononitrate (Imdur Ext Rel Tab) 15 mg QAM PO 12/03/16 09:00 01/02/17 08:59 12/05/16 08:58 15 MG Levothyroxine Sodium (Synthroid Tab) 125 mcg DAILYBB PO 12/03/16 06:00 01/02/17 06:59 12/05/16 05:27 125 MCG Sacubitril/ Valsartan (Entresto 24-26 Mg) 1 tab BID PO 12/02/16 21:00 01/01/17 20:59 12/05/16 08:58 1 TAB Warfarin Sodium (Coumadin Tab) 5 mg SuMoWeThFr@1600 PO 12/02/16 20:00 01/01/17 19:59 Future Hold 12/04/16 15:25 5 MG Acetaminophen (Tylenol Tab) 650 mg Q4H PRN PO 12/02/16 17:30 01/01/17 17:29 Ondansetron HCl (Zofran Inj) 4 mg Q6H PRN IV 12/02/16 17:30 01/01/17 17:29 Warfarin Sodium (Coumadin Tab) 2.5 mg TuSa@1600 PO 12/03/16 16:00 01/02/17 15:59 Future Hold 12/03/16 15:56 2.5 MG Oxycodone HCl (Roxicodone Immediate Rel Tab) 5 mg Q4H PRN PO 12/02/16 17:45 12/16/16 17:44 12/04/16 15:24 5 MG Docusate Sodium (coLACE CAP) 100 mg BID PO 12/02/16 21:00 01/01/17 20:59 12/05/16 08:57 100 MG Miscellaneous (Iv Fluids Completed) 1 ea PRN PRN N/A 12/02/16 19:15 12/02/17 19:14 Hydromorphone HCl (Dilaudid Inj) 1 mg Q4H PRN IV 12/03/16 01:45 12/17/16 01:44 Miscellaneous Information (Consult Glycemic Management Pharmacy) 1 ea UD PRN N/A 12/02/16 23:00 01/01/17 22:59 Insulin Glargine (Lantus Solostar Pen) 10 unit BID SC 12/04/16 09:00 01/03/17 08:59 Future hold 12/04/16 21:53 10 UNIT Magnesium Hydroxide 30 ml 30 ml Q6H PRN PO 12/04/16 12:30 01/03/17 12:29 Cefazolin Sodium (Ancef 1000mg/55 ml D5W) 55 ml @ 100 mls/hr PRE-SPECIALS IV 12/05/16 12:00 12/05/16 19:00 Epleronone (Eplerenone) 12.5 mg QAM PO 12/05/16 09:00 01/04/17 08:59 12/05/16 08:59 12.5 MG Torsemide (Demadex Tab) 20 mg BID17 PO 12/05/16 17:00 01/04/17 16:59 Warfarin Sodium (Coumadin Tab) 4 mg TODAY@1600 PO 12/05/16 16:00 12/05/16 16:01
[2016-12-05] MEDS ORDERED: TRAMADOL HCL 50 MG TAB PO PRN (13:45)
[2016-12-05 15:00] VITALS: BP 120/72; PULSE 60; TEMP 36.5; O2SAT 97
[2016-12-05] MEDS: DIGOXIN 0.125 MG TAB PO SCH (15:58)
[2016-12-05] MEDS ORDERED: WARFARIN SOD 4 MG TAB PO SCH (16:00)
[2016-12-05] MEDS: TORSEMIDE 20 MG TAB PO SCH (17:00)
[2016-12-05 21:02] VITALS: BP 116/73; PULSE 72
[2016-12-05] MEDS: INSULIN GLARGINE SOLOSTAR 100 UNITS/ML 3 ML PEN SC SCH (21:07)
[2016-12-05 23:14] VITALS: BP 100/53; PULSE 62; TEMP 36.5; O2SAT 97
[2016-12-06] MEDS: LEVOTHYROXINE 125 MCG TAB PO SCH (05:57)
[2016-12-06 06:59] LABS: INR 2.7 (0.9-1.1); PROTHROMBIN TIME (PATIENT) 30.5 SECONDS (9.0-12.0)
[2016-12-06 07:54] VITALS: BP 104/66; PULSE 72; TEMP 36.3; O2SAT 98
[2016-12-06 07:59] VITALS: O2SAT 98
[2016-12-06] MEDS: TORSEMIDE 20 MG TAB PO SCH ×2 (09:21→17:25)
[2016-12-06] MEDS: ATORVASTATIN 40 MG TAB PO SCH (09:21)
[2016-12-06] MEDS: ASPIRIN 81 MG ECTAB PO SCH (09:21)
[2016-12-06] MEDS: ISOSORBIDE MONONITRATE 30 MG TABCR PO SCH (09:21)
[2016-12-06] MEDS: DOCUSATE SODIUM 100 MG CAP PO SCH ×2 (09:21→21:44)
[2016-12-06] MEDS: SACUBITRIL-VALSARTAN 24-26 MG TAB PO SCH ×2 (09:22→21:46)
[2016-12-06] MEDS: CARVEDILOL 3.125 MG TAB PO SCH ×2 (09:22→21:44)
[2016-12-06] MEDS: EPLERENONE 25 MG TAB PO SCH (09:22)
[2016-12-06] MEDS: INSULIN ASPART 100 UNITS/ML 3 ML PEN SC SCH ×4 (09:28→21:50)
[2016-12-06] MEDS: INSULIN GLARGINE SOLOSTAR 100 UNITS/ML 3 ML PEN SC SCH (09:31)
--- NOTE | 2016-12-06 09:35 | Cardiology Follow-Up ---
Subjective General Date of Service: Dec 06, 2016. Chief Complaint: left foot pain Pt evaluation today including: conversation w/ patient, physical exam, chart review, lab review, review of studies, review of inpatient medication list History of Present Illness Patient feeling well this AM. Mild left foot pain, but improved from admission. No CP, SOB, orthopnea, PND, or increased LE edema. Allergies Coded Allergies: No Known Drug Allergy (Verified Allergy, Unknown, ., 12/02/16) Social History Smoking Status: Never Smoker Hx Tobacco Use In Past Year?: No Hx Alcohol Use - Type And Amou: No Hx Substance Use - Type And Am: No Problem List Medical Problems: (1) Acute OK Status: Acute (2) Elevated troponin Status: Acute (3) Foot pain, left Status: Acute (4) Peripheral arterial disease Status: Acute (5) Peripheral edema Status: Acute Review of Systems Respiratory: No cough, No dyspnea at rest, No dyspnea on exertion, No hemoptysis, No shortness of breath, No sputum, No wheezing Cardiac: No PND, No chest pain, No edema, No orthopnea, No palpitations Physical Exam Vital Signs Last Vital Signs Documentation Date Time Temp Pulse Resp B/P Pulse Ox O2 Delivery O2 Flow Rate FiO2 12/06/16 07:59 98 Room Air 12/06/16 07:54 36.3 72 18 104/66 Physical Exam Constitutional: General Apperance: heathly-appearing Level of Distress: NAD Psychiatric: Mental Status: active & alert Head: normocephalic Eyes: Pupils: PERRLA Neck: supple Lungs: Respiratory effort: no dyspnea Auscultation: no wheezing, no rales/crackles, no rhonchi Cardiovascular: Heart Auscultation: RRR, normal S1, normal S2, II/ CINDY Peripheral Pulses: Bruits: none appreciated Dorsalis Pedis Pulse: decreased on the left, decreased on the right Abdomen: Bowel Sounds: normal Inspection & Palpation: soft, non-distended Extremities: edema (1+ pedal edema L >R) Assessment and Plan Assessment and Plan ASSESSMENT: 1. Preoperative cardiology evaluation and risk assessment prior to undergoing vascular angiography and possible intervention on left lower extremity due to arterial thrombosis. 2. History of severe ischemic cardiomyopathy with prior EF less than 15%. Currently (May 2016) 25-30%. 3.Prior NYHA functional class III-IV, stage C CHF. Compensated volume status today. Dyspnea now class II- stable. 4.S/P BIV pacemaker/ICD implanted May 2013 for SSS and transient complete heart block the day of presentation for AICD. Appropriate functioning ICD in . 5.Asymptomatic paroxysmal atrial flutter with a controlled ventricular response 6.Anticoagulation initiated with the finding of LV apical mural thrombus in March 2016 and atrial flutter. INR has been therapeutic dating back to October 2016. . 7.DARRELL (lisinopril) induced cough. Tolerating Entresto very well. 8.Catheterization 12/2012 showing patent PEÑA to LAD, occluded SVG to OM and SVG to right PDA was patent with poor run off. 9.Hospitalization for late presentation of NSTEMI vs STEMI in December 2015. Infarct completed (symptom onset 4 days prior to arrival), managed medically. 10.Admission to [facility] in March 2016 with acute decompensated heart failure. No recent hospitalizations since that time. RECOMMENDATIONS/PLAN: Stable cardiac signs/symptoms. Procedure cancelled yesterday per vascular surgeon due to elevated INR. Wishes INR to be 2.0-2.2. Postponed till Friday, next availability. Will need close monitoring of PT/INR over the weekend. Resume all cardiac medications, including diuretic therapy. He is considered high operative risk for perioperative cardiac complications, however he has no acute symptoms of angina or CHF and no further testing would reduce/improve his surgical risk, therefore no additional testing is warranted at this time. Continue Coumadin and ASA. IV heparin for subtherapeutic INR. Monitor closely. Case discussed with Dr. Miranda. Will follow. Cardiology attending: Pt seen and examined, agree with findings and assessment as per Noemí Sousa. Surgery postponed by vascular. Risk as discussed. Stable from cardiac standpoint. Dr. Valdes on for weekend coverage. Call with questions or concerns. Laboratory Results Last 24 Hours Test 12/05/16 11:57 12/05/16 16:47 12/05/16 20:15 12/06/16 06:35 Bedside Glucose 118 mg/dl 164 mg/dl 264 mg/dl Prothrombin Time 30.5 SECONDS Prothromb Time International Ratio 2.7 Test 12/06/16 07:36 Bedside Glucose 73 mg/dl
--- NOTE | 2016-12-06 13:30 | Pharmacy Progress Note ---
Glycemic Control: Progress Nt Date of Service Dec 06, 2016. Scope Glycemic Pharmacist consulted by Dr Avila on 12/06/16 for glycemic control and to write orders per [facility] inpatient glycemic control protocol. Objective Accuchecks BSG (last 24hrs): Test 12/05/16 16:47 12/05/16 20:15 12/06/16 07:36 12/06/16 11:45 Bedside Glucose 164 mg/dl (70-99) 264 mg/dl (70-99) 73 mg/dl (70-99) 151 mg/dl (70-99) Laboratory Data (last 24hrs) Test 12/06/16 12:37 HbA1c: Test 12/03/16 06:45 Hemoglobin A1c 11.3 % (4.5-5.6) H Recent Pertinent Medications Outpatient Anti-diabetic Regimen: * Lantus 10 units SQ HS * NovoLog SSI for BSG > 180 mg/dl The patient is currently receiving: * Basal insulin: Lantus 10 units every 12 hours (Administer 1/2 dose if BSG < 110mg/dl) * Correctional Insulin: Novolog Correction per scale ACHS Goal Range: Low 110 mg/dL - High 140 mg/dL Correction Factor: 30 mg/dL/unit * Prandial insulin: Per carb ratio of 1 unit per 10 grams CHO consumed Risk Factors for Insulin Resistance: * Steroids * Diet * Baseline poor control Assessment & Plan ASSESSMENT: * Most recent A1c 11.3% indicative of poorly controlled diabetes as an outpatient (A1c up from 10.5% in March 2016). However, BSG trends are not consistent with A1c = 11.3% therefore this value may be over estimating the extent of hyperglycemia in patient. * Pt takes Lantus 10 units HS at home but only 1 unit of Novolog if BSG >180 mg /dL * When patient was previously admitted in May 2016, he was motivated to get diabetes under control and wanted to try a basal/bolus approach * Pharmacy provided him with a sliding scale and since he was to be adding Novolog to his regimen, the Lantus was adjusted accordingly * Since discharge he hasn't been using Novolog appropriately so his A1c has continued to worsen * clinical staff educator already spoke with him and he is very frustrated with his blood sugars and does not understand sliding scale * Prior to discharge we need to revisit a new home regimen that the patient can understand (SET Novolog doses with meals) and provide additional counselling * Patient has been receiving ~ 30-40 units of insulin per day with adequate control * AM fasting BSG is slightly below goal range this morning at 73mg/dl. Half dose of Lantus given this morning per order. Will adjust further basal insulin dosing to prevent hypo. Will also increase "low" end of goal range to prevent hypo. * Post-prandial BSGs are in range --> no changes needed to bolus insulin parameters. * ADA & AACE recommend a goal blood sugar range 140-180 mg/dl for the majority of critically ill & non-critically ill patients. However, more stringent targets may be selected in individual cases. Will utilize more stringent target of 110-140mg/dl based on co-morbidities (PVD). PLAN FOR INPATIENT GLYCEMIC CONTROL: * DECREASE Basal insulin and transition back to once daily dosing at HS in anticipation of discharge. Change to Lantus to 15units SQ HS. Will give Lantus 10 units SQ x 1 dose tonight since patient already received 5 units of Lantus this morning. Lantus 15 units SQ HS to start 12/07/16 * NO CHANGE Correctional Insulin with NOVOLOG per scale ACHS or Q6hrs while NPO * Goal Range: Low 120 mg/dL - High 140 mg/dL * Correction Factor: 30 mg/dL/unit * Nutritional / Prandial insulin per carb ratio of 1 unit per 10 grams CHO consumed LOOKING AHEAD TO DISCHARGE: * Revisit home regimen (set Novolog doses) * Provide additional counselling with CDE * Please note that the plan above was derived based on current level of insulin resistance and hospital stress. These recommendations are appropriate for inpatient admission only. Plan of care upon discharge will need to be reassessed to avoid potential outpatient hypo/hyperglycemia. Thank you.
[2016-12-06 15:54] VITALS: BP 108/69; PULSE 64; TEMP 36.4; O2SAT 98
[2016-12-06] MEDS ORDERED: WARFARIN SOD 4 MG TAB PO SCH (16:00)
[2016-12-06] MEDS: DIGOXIN 0.125 MG TAB PO SCH (16:05)
[2016-12-06 16:09] LABS: BASO % 0.5 %; BASO ABS # 0.04 K/uL (0-0.2); COMPLETE YES; EOS % 3.4 %; HEMATOCRIT 47.6 % (42-52); IG% 0.1 %; LYMPH % 17.7 %; LYMPH ABS # 1.29 K/uL (1.2-3.4); MEAN CELL VOLUME 97.7 fL (80-100); MEAN CORPUSCULAR HEMOGLOBIN 33.1 pg (25-34); MEAN CORPUSCULAR HGB CONC 33.8 g/dl (32-36); MONO % 6.5 %; NEUT % 71.8 %; PLATELET COUNT 146 K/uL (130-400); RED BLOOD COUNT 4.87 M/uL (4.7-6.1); WHITE BLOOD COUNT 7.28 K/uL (4.8-10.8)
[2016-12-06 16:32] LABS: BUN/CREATININE RATIO 41.4 (10-20); CALCIUM 9.6 mg/dl (8.5-10.1); CREATININE 1.6 mg/dl (0.60-1.40); POTASSIUM 4.3 mmol/L (3.5-5.1)
[2016-12-06] MEDS ORDERED: INSULIN GLARGINE SOLOSTAR 100 UNITS/ML 3 ML PEN SC SCH (21:00)
--- NOTE | 2016-12-06 21:42 | Progress Note ---
Medicine Progress Note Date & Time of Visit: Dec 06, 2016 at 21:35. Subjective patient seen and examined with at bedside states his left foot pain is about the same, worse with ambulation denies chest pain, dyspnea, dizziness, palpitations no other symptoms Objective Last 8 Hrs Date Time Temp Pulse Resp B/P Pulse Ox O2 Delivery O2 Flow Rate FiO2 12/06/16 16:05 64 12/06/16 16:00 Room Air 12/06/16 15:54 36.4 64 16 108/69 98 Room Air Physical Exam: General-oriented x 3, not in distress, speaks in sentences with no effort Neck- no JVD Lungs- clear to auscultation bilaterally, no rales/wheezes Heart- normal rate, regular rhythm; no murmurs Abdomen- normal bowel sounds, soft, nontender Extremities- mild left foot edema and erythema, fair pulses, no calf tenderness , no cyanosis Neuro- alert, oriented x 3; no gross focal deficits Skin- warm & dry Laboratory Results: Last 24 Hours Test 12/06/16 06:35 12/06/16 07:36 12/06/16 11:45 12/06/16 15:50 Prothrombin Time 30.5 SECONDS Prothromb Time International Ratio 2.7 Bedside Glucose 73 mg/dl 151 mg/dl White Blood Count 7.28 K/uL Red Blood Count 4.87 M/uL Hemoglobin 16.1 g/dL Hematocrit 47.6 % Mean Corpuscular Volume 97.7 fL Mean Corpuscular Hemoglobin 33.1 pg Mean Corpuscular Hemoglobin Concent 33.8 g/dl Platelet Count 146 K/uL Mean Platelet Volume 11.0 fL Neutrophils (%) (Auto) 71.8 % Lymphocytes (%) (Auto) 17.7 % Monocytes (%) (Auto) 6.5 % Eosinophils (%) (Auto) 3.4 % Basophils (%) (Auto) 0.5 % Neutrophils # (Auto) 5.22 K/uL Lymphocytes # (Auto) 1.29 K/uL Monocytes # (Auto) 0.47 K/uL Eosinophils # (Auto) 0.25 K/uL Basophils # (Auto) 0.04 K/uL RDW Standard Deviation 54.0 fL RDW Coefficient of Variation 15.2 % Immature Granulocyte % (Auto) 0.1 % Immature Granulocyte # (Auto) 0.01 K/uL Sodium Level 136 mmol/L Potassium Level 4.3 mmol/L Chloride Level 100 mmol/L Carbon Dioxide Level 28 mmol/L Anion Gap 8.0 mmol/L Blood Urea Nitrogen 66 mg/dl Creatinine 1.60 mg/dl Est Creatinine Clear Calc Drug Dose 36.5 ml/min Estimated GFR () 48.5 Estimated GFR (Non- 41.8 BUN/Creatinine Ratio 41.4 Random Glucose 191 mg/dl Calcium Level 9.6 mg/dl Test 12/06/16 16:44 12/06/16 20:30 Bedside Glucose 151 mg/dl 173 mg/dl Assessment & Plan LEFT FOOT PAIN , IN THE SETTING OF LEFT SUPERFICIAL FEMORAL ARTERY THROMBOSIS pt presents with L foot pain assoc with erythema and edema -L foot xray negative for fx and LLE venous US negative for DVT -LLE arterial US + thrombosis of mid-L superficial femoral artery with large collateral vessels -cannot obtain CTA angiogram of LLE due to chronic kidney disease -pt already on Coumadin with therapeutic INR - evaluated by Vascular Surgery [facility] planned angiography with possible intervention cancelled on 12/05/16 as INR 2.8 , may have to be done next week - discussed with patient agreeable for transfer [facility] discussed with [facility] Hospitalist Dr. Hinton and Vascular Service Dr. Botello, they kindly accepted the patient - on Prednisone for possible component of gout Doxycycline added for possible component of cellulitis ACUTE RENAL FAILURE ON CKD STAGE 3 - RESOLVED - crea improved to 1.4 from 1.7 - stopped IV fluids resumed Torsemide and Eplerenone - monitor with prp daily and avoid nephrotoxic agents when able CAD -s/p CABG x 2 in 2006 -ICD placed 2012 -cont ASA, BB, Imdur, statin - no cardiac symptoms - Cardiology consulted for Pre op Eval, appreciate the recommendations SYSTOLIC CHF -echo 06/13/16 EF 27% with akinesis and thinning of inferior, inferolateral, anterolateral and apical henriquez as well as L ventricular wall segments severely hypokinetic. Mild aortic regurg, mod mitral regurg and mod tricuspid regurg - admitted with elevated crea crea improved resumed Torsemide and Eplerenone - cont digoxin, BB H/O MURAL THROMBUS OF CARDIAC APEX -see echo results above -cont Coumadin INR today 2.7 INSULIN-DEPENDENT DM 2 -recent A1C 9.9; patient is non-compliant with ISS -cont Lantus - ISS -monitor BSG [facility] Pharmacy glycemic control consulted HYPOTHYROIDISM -cont levothyroxine HTN -BP stable -cont Coreg and Entresto -monitor DYSLIPIDEMIA -cont statin DVT PROPHYLAXIS -cont Coumadin CODE STATUS -FULL CODE status per discussion with patient upon admission DISPO transfer to [facility] when bed is available Current Inpatient Medications: Current Inpatient Medications Medications (Trade) Dose Ordered Sig/Fadi Route Start Time Stop Time Status Last Admin Dose Admin Insulin Aspart (novoLOG ASPART) SLIDING SCALE If C... ACHS SC 12/02/16 21:00 01/01/17 20:59 12/06/16 18:46 7 UNITS Glucose (Glucose 40% Gel) 15-30 GRAMS 15 GRAMS... UD PRN PO 12/02/16 17:30 01/01/17 17:29 Glucose (Glucose Chew Tab) 4-8 Tablets 4 Tabl... UD PRN PO 12/02/16 17:30 01/01/17 17:29 Dextrose (Dextrose 50% 50ML Syringe) 25-50ML OF 50% DW IV FOR... UD PRN IV 12/02/16 17:30 01/01/17 17:29 Glucagon (Glucagon Inj) 1 mg UD PRN SQ 12/02/16 17:30 01/01/17 17:29 Aspirin (Ecotrin Tab) 81 mg DAILY PO 12/03/16 09:00 01/02/17 08:59 12/06/16 09:21 81 MG Atorvastatin Calcium (Lipitor Tab) 40 mg DAILY PO 12/03/16 09:00 01/02/17 08:59 12/06/16 09:21 40 MG Carvedilol (Coreg Tab) 3.125 mg BID PO 12/02/16 21:00 01/01/17 20:59 12/06/16 09:22 3.125 MG Digoxin (Lanoxin Tab) 0.125 mg DAILY@16 PO 12/03/16 16:00 01/02/17 15:59 12/06/16 16:05 0.125 MG Isosorbide Mononitrate (Imdur Ext Rel Tab) 15 mg QAM PO 12/03/16 09:00 01/02/17 08:59 12/06/16 09:21 15 MG Levothyroxine Sodium (Synthroid Tab) 125 mcg DAILYBB PO 12/03/16 06:00 01/02/17 06:59 12/06/16 05:57 125 MCG Sacubitril/ Valsartan (Entresto 24-26 Mg) 1 tab BID PO 12/02/16 21:00 01/01/17 20:59 12/06/16 09:22 1 TAB Acetaminophen (Tylenol Tab) 650 mg Q4H PRN PO 12/02/16 17:30 01/01/17 17:29 Ondansetron HCl (Zofran Inj) 4 mg Q6H PRN IV 12/02/16 17:30 01/01/17 17:29 Oxycodone HCl (Roxicodone Immediate Rel Tab) 5 mg Q4H PRN PO 12/02/16 17:45 12/16/16 17:44 12/04/16 15:24 5 MG Docusate Sodium (coLACE CAP) 100 mg BID PO 12/02/16 21:00 01/01/17 20:59 12/06/16 09:21 100 MG Miscellaneous (Iv Fluids Completed) 1 ea PRN PRN N/A 12/02/16 19:15 12/02/17 19:14 Hydromorphone HCl (Dilaudid Inj) 1 mg Q4H PRN IV 12/03/16 01:45 12/17/16 01:44 Miscellaneous Information (Consult Glycemic Management Pharmacy) 1 ea UD PRN N/A 12/02/16 23:00 01/01/17 22:59 Magnesium Hydroxide (Milk Of Magnesia Susp) 30 ml Q6H PRN PO 12/04/16 12:30 01/03/17 12:29 Epleronone (Eplerenone) 12.5 mg QAM PO 12/05/16 09:00 01/04/17 08:59 12/06/16 09:22 12.5 MG Torsemide (Demadex Tab) 20 mg BID17 PO 12/05/16 17:00 01/04/17 16:59 12/06/16 17:25 20 MG Tramadol HCl (Ultram Tab) 50 mg Q6H PRN PO 12/05/16 13:45 01/04/17 13:44 Insulin Glargine (Lantus Solostar Pen) 10 unit Fr@2100 SC 12/06/16 21:00 12/06/16 23:59 Insulin Glargine (Lantus Solostar Pen) 15 unit HS SC 12/07/16 21:00 01/06/17 20:59 Prednisone (PredniSONE TAB) 5 mg DAILY PO 12/07/16 09:00 01/06/17 08:59 Warfarin Sodium (Coumadin Tab) 4 mg DAILY@16 PO 12/06/16 16:00 01/05/17 15:59 12/06/16 16:06 4 MG Doxycycline Hyclate (Vibramycin Cap) 100 mg BID PO 12/06/16 21:00 12/16/16 20:59
[2016-12-06] MEDS ORDERED: PRD5 PO (21:46)
[2016-12-06] MEDS ORDERED: CLC100 PO (21:46)
[2016-12-06] MEDS ORDERED: DXY100 PO (21:46)
[2016-12-06] MEDS ORDERED: CMD4 PO (21:46)
[2016-12-06] MEDS: DOXYCYCLINE HYCLATE 100 MG CAP PO SCH (21:47)
--- NOTE | 2016-12-06 21:52 | Discharge Summary ---
Discharge Summary Admission Date: Dec 03, 2016 at 13:09 Discharge Date: Dec 06, 2016 Discharge Disposition: Acute care facility Principal Diagnosis: LEFT FOOT PAIN , IN THE SETTING OF LEFT SUPERFICIAL FEMORAL ARTERY THROMBOSIS Secondary Diagnoses/Problems: Please refer to hospital course below. 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 Medication Reconciliation New Medications: Docusate Sodium (Docusate Sodium) 100 Mg Cap 100 MG PO BID for 7 Days, #14 CAP Doxycycline Hyclate (Doxycycline Hyclate) 100 Mg Cap 100 MG PO BID for 7 Days, #14 CAP Prednisone (Prednisone) 5 Mg Tab 5 MG PO DAILY for 7 Days, #7 TAB Warfarin Sod (Coumadin) 4 Mg Tab 4 MG PO DAILY@16 for 7 Days, TAB Continued Medications: Aspirin (Aspirin Ec) 81 Mg Tab 81 MG PO DAILY Atorvastatin (Lipitor) 80 Mg Tab 40 MG PO DAILY, TAB Carvedilol (Coreg) 3.125 Mg Tab 3.125 MG PO BID for 30 Days, #60 TAB 3 Refills Digoxin (Digoxin) 0.125 Mg Tab 0.125 MG PO DAILY@16 for 30 Days, #30 TAB Eplerenone (Eplerenone) 25 Mg Tab 12.5 MG PO DAILY Insulin Aspart (Novolog Flexpen) 100 Units/Ml Inj 0 UNITS SC ACHS PRN for Blood sugar for 30 Days, #10 ML Insulin Glargine (Lantus Solostar) 100 Unit/Ml Inj 10 UNITS SC HS, PEN Isosorbide Mononitrate Ext Rel (Imdur Ext Rel) 30 Mg Ertab 15 MG PO QAM, TAB Levothyroxine Sodium (Synthroid) 125 Mcg Tab 125 MCG PO DAILY, TAB Nitroglycerin (Nitrostat) 0.4 Mg/1 Tab Subl 0.4 MG SL UD PRN for Chest Pain for 30 Days, #25 Oxygen (Oxygen) Gas 2 LITERS NA HS Sacubitril-Valsartan (Entresto 24-26 mg) 1 Tab Tab 1 TAB PO BID Torsemide (Torsemide) 20 Mg Tab 20 MG PO BID Discontinued Medications: Warfarin Sodium (Warfarin Sodium) 5 Mg Tab 1 TAB PO UD Admission Information HPI (per Admitting provider): This is a 76 y/o male with PMHx of PVD, CKD stage 3, CAD s/p CABG, Systolic CHF , Ischemic Cardiomyopathy, 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 Pt reports that 1 week ago he developed L foot pain that he describes as waxing and waning 5/10 "throbbing" pain that at times is sharp and stabbing. Pain is alleviated with elevation of leg and aggravated with ambulation. He has not been taking any pain medication at home. Sxs are assoc with erythema and swelling. He denies similar sxs in the past. Pt denies h /o gout or DVT. He does not drink alcohol. Pt denies fever/chills, chest pain, palpitations, SOB, wheezing, abd pain, N/V, bowel or bladder issues, calf pain, lightheadedness/dizziness. In the ED, vitals are stable. Pt is afebrile with no leukocytosis. Creat 1.7. Glucose 419. Uric acid 9.8. INR 2.2. L foot xray negative for fx. LLE US negative for DVT. LLE arterial US + thrombosis of mid-L superficial femoral artery with large collateral vessels. Pt will be admitted for further evaluation and treatment. Physical Exam (per Admitting): General Appearance: WD/WN, no apparent distress, + pertinent finding (Pt is sittign up in bed with at bedside ) Head: normocephalic, atraumatic Eyes: normal inspection ENT: hearing grossly normal Neck: supple Respiratory/Chest: chest non-tender, lungs clear, normal breath sounds, no respiratory distress Cardiovascular: regular rate, rhythm, no murmur Abdomen/GI: normal bowel sounds, non tender, soft Back: normal inspection Extremities/Musculoskelatal: no calf tenderness, + pertinent finding (L foot diffusely tender to palpation with increased erythema and edema compared to R. 2+ dorsalis pedis pulse in R foot; unable to appreciate dosalis pedis or posterior tobial pulse in L foot) Neurologic/Psych: alert, normal mood/affect, oriented x 3 Skin: warm/dry, no rash Hospital Course LEFT FOOT PAIN , IN THE SETTING OF LEFT SUPERFICIAL FEMORAL ARTERY THROMBOSIS pt presents with L foot pain assoc with erythema and edema -L foot xray negative for fx and LLE venous US negative for DVT -LLE arterial US + thrombosis of mid-L superficial femoral artery with large collateral vessels -cannot obtain CTA angiogram of LLE due to chronic kidney disease -pt already on Coumadin with therapeutic INR - evaluated by Vascular Surgery C planned angiography with possible intervention cancelled on 12/05/16 as INR 2.8 , may have to be done next week - discussed with patient agreeable for transfer [facility] discussed with [facility] Hospitalist Dr. Hinton and Vascular Service Dr. Botello, they kindly accepted the patient - on Prednisone for possible component of gout Doxycycline added for possible component of cellulitis ACUTE RENAL FAILURE ON CKD STAGE 3 - RESOLVED - crea improved to 1.4 from 1.7 - stopped IV fluids resumed Torsemide and Eplerenone - monitor with prp daily and avoid nephrotoxic agents when able CAD -s/p CABG x 2 in 2006 -ICD placed 2012 -cont ASA, BB, Imdur, statin - no cardiac symptoms - Cardiology consulted for Pre op Eval, appreciate the recommendations SYSTOLIC CHF -echo 06/13/16 EF 27% with akinesis and thinning of inferior, inferolateral, anterolateral and apical henriquez as well as L ventricular wall segments severely hypokinetic. Mild aortic regurg, mod mitral regurg and mod tricuspid regurg - admitted with elevated crea crea improved resumed Torsemide and Eplerenone - cont digoxin, BB H/O MURAL THROMBUS OF CARDIAC APEX -see echo results above -cont Coumadin INR today 2.7 INSULIN-DEPENDENT DM 2 -recent A1C 9.9; patient is non-compliant with ISS -cont Lantus - [facility] control consulted HYPOTHYROIDISM -cont levothyroxine HTN -BP stable -cont Coreg and Entresto -monitor DYSLIPIDEMIA -cont statin DVT PROPHYLAXIS -cont Coumadin CODE STATUS -FULL CODE status per discussion with patient upon admission DISPO transfer to [facility] when bed is available Total time spent on discharge = 60 minutes This includes examination of the patient, discharge planning, medication reconciliation, and communication with other providers. Discharge Instructions Discharge Instructions Admission Reason for Admission: PVD Discharge Discharge Diagnosis / Problem: LEFT FOOT PAIN, LEFT SUPERFICIAL FEMORAL ARTERY THROMBOSIS Discharge Goals Goal(s): Diagnostic testing, Therapeutic intervention Activity Recommendations Activity Level: Ambulates in room . Additional Information Patient informed of condition: Yes Advance Directives: No (UNKNOWN) DNR: No (PATIENT IS FULL CODE) Level of Care: Other ([facility]) Communicable Disease: No Prognosis: Stable Oxygen at (LPM): AT HS Gooden Catheter: No Instructions / Follow-Up Instructions / Follow-Up PLEASE REFER TO HOSPITAL DISCHARGE SUMMARY FOR FURTHER DETAILS. Current Hospital Diet Patient's current hospital diet: AHA Diet (Heart Healthy), Diabetes Type 2 Diet Discharge Diet Recommended Diet: AHA Diet (Heart Healthy), Diabetes Type 2 Diet Pending Studies Studies pending at discharge: yes List of pending studies: PLEASE REFER TO HOSPITAL DISCHARGE SUMMARY. Physician Orders On Transfer Special Precautions: PLEASE REFER TO HOSPITAL DISCHARGE SUMMARY FOR FURTHER DETAILS. Laboratory Results Hemoglobin A1c Test 12/03/16 06:45 Range/Units Estimated Average Glucose 278 mg/dl Hemoglobin A1c 11.3 H 4.5-5.6 % Medical Emergencies . Who to Call and When: Medical Emergencies: If at any time you feel your situation is an emergency, please call 911 immediately. . Non-Emergent Contact Non-Emergency issues call your: Primary Care Provider . Past History Medical & Surgical History: (1) PVD (peripheral vascular disease) (2) Foot pain, left (3) Peripheral arterial disease (4) HTN (hypertension) (5) Heart disease (6) CHF (congestive heart failure) (7) DM2 (diabetes mellitus, type 2) (8) Ischemic cardiomyopathy (9) ICD (implantable cardioverter-defibrillator) in place (10) History of left heart catheterization (LHC) (11) Hypothyroidism (12) HLD (hyperlipidemia) (13) Hx of tonsillectomy (14) Hx of CABG . "Provider Documentation" section prepared by Chucho Hale. Core Measure Problem Core Measures: None
[2016-12-06 23:42] VITALS: BP 124/74; PULSE 66; TEMP 36.6; O2SAT 95
[2016-12-07] MEDS: LEVOTHYROXINE 125 MCG TAB PO SCH (05:46)
[2016-12-07 06:15] LABS: INR 2.9 (0.9-1.1); PROTHROMBIN TIME (PATIENT) 32.7 SECONDS (9.0-12.0)
[2016-12-07 06:20] LABS: BUN/CREATININE RATIO 46.4 (10-20); CALCIUM 8.8 mg/dl (8.5-10.1); CREATININE 1.4 mg/dl (0.60-1.40); POTASSIUM 3.8 mmol/L (3.5-5.1)
[2016-12-07 07:10] VITALS: BP 113/73; PULSE 61; TEMP 36.4; O2SAT 99
[2016-12-07] MEDS: ASPIRIN 81 MG ECTAB PO SCH (09:22)
[2016-12-07] MEDS: SACUBITRIL-VALSARTAN 24-26 MG TAB PO SCH (09:22)
[2016-12-07] MEDS: DOCUSATE SODIUM 100 MG CAP PO SCH (09:22)
[2016-12-07] MEDS: TORSEMIDE 20 MG TAB PO SCH ×2 (09:22→16:30)
[2016-12-07] MEDS: ISOSORBIDE MONONITRATE 30 MG TABCR PO SCH (09:23)
[2016-12-07] MEDS: CARVEDILOL 3.125 MG TAB PO SCH (09:24)
[2016-12-07] MEDS: ATORVASTATIN 40 MG TAB PO SCH (09:24)
[2016-12-07] MEDS: DOXYCYCLINE HYCLATE 100 MG CAP PO SCH (09:24)
[2016-12-07] MEDS: EPLERENONE 25 MG TAB PO SCH (09:24)
[2016-12-07 09:27] VITALS: BP 103/64; PULSE 61
[2016-12-07] MEDS: INSULIN ASPART 100 UNITS/ML 3 ML PEN SC SCH ×2 (09:30→13:14)
[2016-12-07 14:53] VITALS: BP 102/63; PULSE 64; TEMP 36.7; O2SAT 98
[2016-12-07 16:06] VITALS: PULSE 72; PULSE 74
[2016-12-07] MEDS: DIGOXIN 0.125 MG TAB PO SCH (16:08)
[2016-12-07 16:19] VITALS: BP 102/63; PULSE 74; TEMP 36.7; O2SAT 98
--- NOTE | 2016-12-07 17:18 | Progress Note ---
Progress Note attending addendum patient seen at bedside still reports pain on the left foot with walking otherwise feels ok overall left foot: edema mildly increased, otherwise exam unchanged for transfer to [facility] today Chucho Hale MD
[2016-12-07] MEDS ORDERED: INSULIN GLARGINE SOLOSTAR 100 UNITS/ML 3 ML PEN SC SCH (21:00)
--- NOTE | 2016-12-12 14:49 | Surgery Consultation ---
Consultation Date of Service Dec 03, 2016. Chief Complaint LLE foot pain, PAD History of Present Illness The patient is a 76 year old male with hx of HTN, DMII, seen in consultation today for LLE PAD noted on US during admission for LLE foot pain. Pt states he began having pain in LLE foot which waxes and wanes throughout the day, but is worse with ambulation and when lying down at night. States it feels improved when he hangs his foot over the side of the bed. Admits chronic BLE numbness from neuropathy. Admits BLE claudication at 52 yds, worse in left. Denies smoking or known hx of PAD. Denies LOCKHART, fever, chills, chest pain SOB, abd pain , N/V, ulcerations, other complaints. 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 US indicates L SFAO with monophasic 3 vessel runoff to foot. Vitals Vital Signs Past 12 Hours Date Time Temp Pulse Resp B/P Pulse Ox O2 Delivery O2 Flow Rate FiO2 12/03/16 07:51 Room Air 12/03/16 07:18 36.5 58 15 117/70 98 Room Air 12/02/16 23:25 Room Air 12/02/16 23:25 36.7 60 18 107/64 97 Room Air Allergies Coded Allergies: No Known Drug Allergy (Verified Allergy, Unknown, ., 12/02/16) Home Medications Scheduled Aspirin (Aspirin Ec), 81 MG PO DAILY Atorvastatin (Lipitor), 40 MG PO DAILY Carvedilol (Coreg), 3.125 MG PO BID Digoxin (Digoxin), 0.125 MG PO DAILY@16 Docusate Sodium (Docusate Sodium), 100 MG PO BID Doxycycline Hyclate (Doxycycline Hyclate), 100 MG PO BID Eplerenone (Eplerenone), 12.5 MG PO DAILY Insulin Glargine (Lantus Solostar), 10 UNITS SC HS Isosorbide Mononitrate Ext Rel (Imdur Ext Rel), 15 MG PO QAM Levothyroxine Sodium (Synthroid), 125 MCG PO DAILY Oxygen (Oxygen), 2 LITERS NA HS Prednisone (Prednisone), 5 MG PO DAILY Sacubitril-Valsartan (Entresto 24-26 mg), 1 TAB PO BID Torsemide (Torsemide), 20 MG PO BID Warfarin Sod (Coumadin), 4 MG PO DAILY@16 Scheduled PRN Insulin Aspart (Novolog Flexpen), 0 UNITS SC ACHS PRN for Blood sugar Nitroglycerin (Nitrostat), 0.4 MG SL UD PRN for Chest Pain Problem List Medical Problems: (1) CHF (congestive heart failure) (2) DM2 (diabetes mellitus, type 2) (3) Heart disease (4) History of left heart catheterization (LHC) (5) HLD (hyperlipidemia) (6) HTN (hypertension) (7) Hypothyroidism (8) ICD (implantable cardioverter-defibrillator) in place (9) Ischemic cardiomyopathy (10) PVD (peripheral vascular disease) Surgical Problems: (1) Hx of CABG (2) Hx of tonsillectomy Surgical / Medical History Hx Cardiac Surgery: Yes (triple bypass 2006) Hx Abdominal Surgery: No Hx Cancer Surgery: No Hx Thoracic Surgery: No Hx Orthopedic: Yes (plates in L arm 2000) Hx Urinary Tract Surgery: No HX Other Surgery: Yes (tonsillectomy) Past Medical/Surgical History: Diabetes, Hypertension Family History FH: diabetes mellitus FH: lung disease Social History Smoking Status: Never Smoker Hx Tobacco Use In Past Year?: No Hx Alcohol Use - Type & Amnt: No Hx Substance Use -Type & Amnt: No Review of Systems Constitutional: No chills, No fever, No malaise Skin: No change in color Eyes: No visual changes ENMT: No sore throat Respiratory: No CARRERA, No cough, No hemoptysis, No short of breath Cardiovascular: + edema, + intermittent claudication, No chest pain, No palpitations, No syncope Gastrointestinal: No abdominal pain, No nausea, No vomiting Neurologic: + numbness, No dizziness, No lethargy Physical Exam Constitutional: General Apperance: heathly-appearing, well-nourished, well-developed Level of Distress: NAD Psychiatric: Mental Status: active & alert, normal mood, normal affect Orientation: oriented except where noted, to time, to place, to person Memory: recent memory normal, remote memory normal Head: normocephalic, atraumatic Eyes: EOM: EOMI ENMT: normal ENT inspection, hearing grossly normal Neck: supple, trachea midline Lungs: Respiratory effort: no dyspnea Auscultation: no wheezing, no rales/crackles, no rhonchi Cardiovascular: Apical Impulse: not displaced Heart Auscultation: RRR, no rubs, no gallops Peripheral Pulses: Pulses: full and equal, in all extremities except if noted Bruits: none appreciated Carotid Pulse: normal on the left, normal on the right Brachial Pulses: normal on the left, normal on the right Radial Pulse: normal on the left, normal on the right Femoral Pulse: normal on the left, pertinent finding (+2 RLE, +3 LLE) Posterior Tibialis Pulse: doppler (monophasic LLE, biphasic RLE) Dorsalis Pedis Pulse: doppler (monophasic LLE, monophasic RLE) Abdomen: Bowel Sounds: normal Inspection & Palpation: soft, non-distended, no tenderness, guarding & rebound Musculoskeletal: normal strength (5/5 throughout), normal tone Extremities: Upper Right: no cyanosis, no edema, no varicosities Upper Left: no cyanosis, no edema, no varicosities Lower Right: no cyanosis, no edema, no varicosities Lower Left: no cyanosis, no ulcers, no mottling, edema, pertinent finding ( L forefoot and toes with moderate edema and warmth and faint erythema. Brisk cap refill.) Neurologic: Cranial Nerves: grossly intact Sensation: grossly intact Assessment and Plan ASSESSMENT and PLAN: LLE SFAO with foot pain Pt discussed with Dr Truong. D/T SFAO in LLE noted on US, and possible rest pain, recommends LLE angio with intervention in OR. Planning on afternoon. Will discuss further with pt.
== END 2016-12-07 18:01 | disposition short-term general hospital (02) | DRG 300 ==
LOC: ENRESERVTM → ENRESERVDT → C.EDB 12:10 → C.MSW 17:31 → OBSVTOIN 12-03 13:09
PROVIDERS: ADMIT Hospitalist; ATTEND Internal Medicine
DX: I74.3 Embolism and thrombosis of arteries of the lower extremities (principal); N17.9 Acute kidney failure, unspecified; I50.22 Chronic systolic (congestive) heart failure; I13.0 Hypertensive heart and chronic kidney disease with heart failure and stage 1 through stage 4 chronic kidney disease, or unspecified chronic kidney disease; I48.92 Unspecified atrial flutter; M79.672 Pain in left foot; E11.51 Type 2 diabetes mellitus with diabetic peripheral angiopathy without gangrene; M10.9 Gout, unspecified; N18.3 Chronic kidney disease, stage 3 (moderate); I73.9 Peripheral vascular disease, unspecified; I25.5 Ischemic cardiomyopathy; I25.10 Atherosclerotic heart disease of native coronary artery without angina pectoris; E03.9 Hypothyroidism, unspecified; E78.5 Hyperlipidemia, unspecified; Z79.899 Other long term (current) drug therapy; Z79.01 Long term (current) use of anticoagulants; Z79.4 Long term (current) use of insulin; Z79.82 Long term (current) use of aspirin; Z95.1 Presence of aortocoronary bypass graft; Z95.810 Presence of automatic (implantable) cardiac defibrillator; Z86.718 Personal history of other venous thrombosis and embolism; Z87.891 Personal history of nicotine dependence; Z83.3 Family history of diabetes mellitus

== ENCOUNTER 2017-10-24 19:38 | Inpatient (IN) | payer OTHER ==
[~2017-10-24] VITALS: Ht 167.6 cm; Wt 78.6 kg
[~2017-10-24 19:38] MED LIST changes: -ALL180 PO; +CLC100 PO; +CMD4 PO; -CMD5 PO; +DMD20 PO; +DXY100 PO; +EPLE25TA3 PO; +INSDGIPEN SC; -INSUINJ4 SQ; +LEVO125T72 PO; -LEVO25TA5 PO; +OXGN; +PRD5 PO; +SACU1TAB PO; -SPR25 PO; -TORS20TA2 PO
[2017-10-24] MEDS ORDERED: AZEL0.1S2 NAE (21:13)
[2017-10-24] MEDS ORDERED: TPRSR/50 PO (21:13)
[2017-10-24] MEDS ORDERED: LEVO175T3 PO (21:13)
[2017-10-24] MEDS ORDERED: TORS20TA2 PO (21:13)
[2017-10-24] MEDS ORDERED: NRN100 PO (21:13)
[2017-10-24] MEDS ORDERED: LNX125 PO (21:13)
[2017-10-24] MEDS ORDERED: CMD5 PO (21:35)
[2017-10-24 21:47] LABS: BASO % 0.5 %; BASO ABS # 0.03 K/uL (0-0.2); COMPLETE YES; HEMATOCRIT 47.7 % (42-52); IG% 0.2 %; LYMPH % 10.2 %; LYMPH ABS # 0.67 K/uL (1.2-3.4); MEAN CELL VOLUME 100.2 fL (80-100); MEAN CORPUSCULAR HGB CONC 32.9 g/dl (32-36); MEAN PLATELET VOLUME 11.3 fL (7.4-10.4); MONO % 7.2 %; NEUT % 79.9 %; PLATELET COUNT 168 K/uL (130-400); RED BLOOD COUNT 4.76 M/uL (4.7-6.1); WHITE BLOOD COUNT 6.54 K/uL (4.8-10.8)
[2017-10-24 21:54] LABS: BUN/CREATININE RATIO 29.6 (10-20); CREATININE 2.17 mg/dl (0.60-1.40); POTASSIUM 4.4 mmol/L (3.5-5.1)
[2017-10-24 21:56] LABS: INR 2.2 (0.9-1.1); PROTHROMBIN TIME (PATIENT) 24.4 SECONDS (9.0-12.0)
--- NOTE | 2017-10-24 22:10 | DIAGNOSTIC IMAGING REPORT ---
CHEST 2 VIEWS ROUTINE HISTORY: Short of breath. eval for pna COMPARISON: Chest 05/01/2016. FINDINGS: No pneumothorax. Small bilateral pleural effusions, left greater than right. Bibasilar densities are nonspecific but favor atelectasis. No evidence for pulmonary edema. Postoperative changes. The heart remains mildly enlarged. Left-sided pacemaker/defibrillator. IMPRESSION: 1. Small bilateral pleural effusions. 2. Bibasilar densities are nonspecific but favor atelectasis from the pleural effusion. Stable cardiomegaly. Electronically signed by: Walter Zhang M.D. 10/24/2017 10:09 PM Dictated Date/Time: 10/24/2017 10:07 PM
[2017-10-24] MEDS ORDERED: CEFTRIAXONE SOD INJ 1 GM ADDVIAL IV STA (22:19)
--- NOTE | 2017-10-24 23:15 | EMERGENCY ROOM VISIT NOTE ---
History Report prepared by Rl: Elba Duarte Under the Supervision of: Dr. Hermes Enriquez M.D. First contact with patient: 19:56 Chief Complaint: SHORTNESS OF BREATH Stated Complaint: SOB History of Present Illness The patient is a 76 year old male who presents to the Emergency Room with complaints of persistent shortness of breath for the past few days. He reports he has experienced sinus congestion and coughing for the past 3 days. The cough is non-productive. His breathing is worsened by laying down. This has been going on for some time. He does complain of nocturnal dyspnea. He denies any recent fevers, chest pain or vomiting. The patient admits to a history of CHF and heart disease and has a pacemaker in place. He does take daily Torsemide. He states his weight has been "up and down" recently. 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 A total of 10 systems reviewed and were otherwise negative. Past Medical & Surgical Medical Problems: (1) CHF (congestive heart failure) (2) DM2 (diabetes mellitus, type 2) (3) Heart disease (4) History of left heart catheterization (LHC) (5) HLD (hyperlipidemia) (6) HTN (hypertension) (7) Hypothyroidism (8) ICD (implantable cardioverter-defibrillator) in place (9) Ischemic cardiomyopathy (10) PVD (peripheral vascular disease) Surgical Problems: (1) Hx of CABG (2) Hx of tonsillectomy Family History FH: diabetes mellitus FH: lung disease Social History Smoking Status: Never Smoker Alcohol Use: none Drug Use: none Marital Status: Housing Status: lives with significant other Occupation Status: retired Current/Historical Medications Scheduled Aspirin (Aspirin Ec), 81 MG PO DAILY Atorvastatin (Lipitor), 40 MG PO DAILY Digoxin (Digoxin), 0.125 MG PO DAILY Gabapentin (Gabapentin), 100 MG PO TID Insulin Glargine (Lantus Solostar), 12 UNITS SC HS Isosorbide Mononitrate Ext Rel (Imdur Ext Rel), 15 MG PO QAM Levothyroxine Sodium (Levothyroxine Sodium), 175 MG PO DAILY Metoprolol Succinate (Metoprolol Succinate ER), 50 MG PO DAILY Sacubitril-Valsartan (Entresto 24-26 mg), 1 TAB PO BID Torsemide (Demadex), 20 MG PO BID Warfarin Sod (Coumadin), 5 MG PO DAILY Scheduled PRN Azelastine HCl (Azelastine Hydrochloride), 1 SPRAY SOHEILA DAILY PRN for Insulin Aspart (Novolog Flexpen), 0 UNITS SC ACHS PRN for Blood sugar Nitroglycerin (Nitrostat), 0.4 MG SL UD PRN for Chest Pain Allergies Coded Allergies: No Known Drug Allergy (Verified Allergy, Unknown, ., 12/02/16) Physical Exam Vital Signs Date Time Temp Pulse Resp B/P (MAP) Pulse Ox O2 Delivery O2 Flow Rate FiO2 10/24/17 22:31 72 20 93 Room Air 10/24/17 21:23 71 20 114/70 93 Room Air 10/24/17 20:10 93 Room Air 10/24/17 19:46 36.6 69 16 109/67 97 Room Air Physical Exam Constitutional: Vital signs reviewed. Eyes: Pupils are equal round reactive to light. Conjunctiva are noninjected. ENT: Pharynx is clear without erythema or exudate. Mucous membranes are moist. Neck supple without meningeal signs. Respiratory: Clear to auscultation bilaterally. Breath sounds are equal bilaterally. Cardiovascular: Regular rate and rhythm. No rubs or gallops. GI: Soft, nondistended and nontender. Bowel sounds are present. Musculoskeletal: No peripheral edema. No lower extremity tenderness. Integumentary: No cyanosis. Neurological: The patient is awake and alert. No focal deficits. Psychiatric: Normal affect. Medical Decision & Procedures ER Provider Diagnostic Interpretation: Radiology results as stated below per my review and the radiologist's interpretation: CHEST 2 VIEWS ROUTINE HISTORY: Short of breath. eval for pna COMPARISON: Chest 05/01/2016. FINDINGS: No pneumothorax. Small bilateral pleural effusions, left greater than right. Bibasilar densities are nonspecific but favor atelectasis. No evidence for pulmonary edema. Postoperative changes. The heart remains mildly enlarged. Left-sided pacemaker/defibrillator. IMPRESSION: 1. Small bilateral pleural effusions. 2. Bibasilar densities are nonspecific but favor atelectasis from the pleural effusion. Stable cardiomegaly. Electronically signed by: Walter Zhang M.D. 10/24/2017 10:09 PM Laboratory Results 10/24/17 21:08 Red Blood Count 4.76, Mean Corpuscular Volume 100.2, Mean Corpuscular Hemoglobin 33.0, Mean Corpuscular Hemoglobin Concent 32.9, Mean Platelet Volume 11.3, Neutrophils (%) (Auto) 79.9, Lymphocytes (%) (Auto) 10.2, Monocytes (%) ( Auto) 7.2, Eosinophils (%) (Auto) 2.0, Basophils (%) (Auto) 0.5, Neutrophils # ( Auto) 5.23, Lymphocytes # (Auto) 0.67, Monocytes # (Auto) 0.47, Eosinophils # ( Auto) 0.13, Basophils # (Auto) 0.03 10/24/17 21:08 Test 10/24/17 21:08 White Blood Count 6.54 K/uL (4.8-10.8) Red Blood Count 4.76 M/uL (4.7-6.1) Hemoglobin 15.7 g/dL (14.0-18.0) Hematocrit 47.7 % (42-52) Mean Corpuscular Volume 100.2 fL (80-100) Mean Corpuscular Hemoglobin 33.0 pg (25-34) Mean Corpuscular Hemoglobin Concent 32.9 g/dl (32-36) Platelet Count 168 K/uL (130-400) Mean Platelet Volume 11.3 fL (7.4-10.4) Neutrophils (%) (Auto) 79.9 % Lymphocytes (%) (Auto) 10.2 % Monocytes (%) (Auto) 7.2 % Eosinophils (%) (Auto) 2.0 % Basophils (%) (Auto) 0.5 % Neutrophils # (Auto) 5.23 K/uL (1.4-6.5) Lymphocytes # (Auto) 0.67 K/uL (1.2-3.4) Monocytes # (Auto) 0.47 K/uL (0.11-0.59) Eosinophils # (Auto) 0.13 K/uL (0-0.5) Basophils # (Auto) 0.03 K/uL (0-0.2) RDW Standard Deviation 64.9 fL (36.4-46.3) RDW Coefficient of Variation 17.8 % (11.5-14.5) Immature Granulocyte % (Auto) 0.2 % Immature Granulocyte # (Auto) 0.01 K/uL (0.00-0.02) Prothrombin Time 24.4 SECONDS (9.0-12.0) Prothromb Time International Ratio 2.2 (0.9-1.1) Activated Partial Thromboplast Time 52.0 SECONDS (21.0-31.0) Partial Thromboplastin Ratio 2.0 Anion Gap 7.0 mmol/L (3-11) Est Creatinine Clear Calc Drug Dose 26.9 ml/min Estimated GFR () 33.5 Estimated GFR (Non- 28.9 BUN/Creatinine Ratio 29.6 (10-20) Calcium Level 10.0 mg/dl (8.5-10.1) Troponin I 0.102 ng/ml (0-0.045) Pro-B-Type Natriuretic Peptide 8802 pg/ml (0-900) Laboratory results as reviewed by me. Medications Administered Medications (Trade) Dose Ordered Sig/Fadi Route Start Time Stop Time Status Last Admin Dose Admin Ceftriaxone Sodium (Rocephin Inj) 1 gm NOW STAT IV 10/24/17 22:19 10/24/17 22:20 DC 10/24/17 22:30 1 GM ED Course 1957: The patient was evaluated in room C7. A complete history and physical exam was performed. 2215: I reevaluated the patient. I discussed his results and my recommendation he remain in the hospital for further evaluation and management and he and his family verbalized complete understanding and agreement. 2220: I discussed the patients case with Dr. Arboleda, [facility] Hospitalist. The patient will be further evaluated. Medical Decision This is a 76-year-old male who presents with cold symptoms and dyspnea. Differential diagnosis includes CHF exacerbation, pneumonia, bronchitis, pleural effusion, anemia. I did perform a limited focused review of portions of the patient's old chart on the electronic medical record. The patient has had no recent pertinent visits to this hospital. I did evaluate the patient as noted above. IV access was established. The patient was placed on a continuous cardiac rn. I did order and personally review the patient's 12-lead EKG and chest x-ray as described above. He does have bilateral pleural effusions with airspace opacities. I did treat him with ceftriaxone IV. Blood cultures were obtained prior to this. I did order and review the patient's blood work as noted in the electronic medical record. His white blood cell count is not elevated. Creatinine is elevated. Troponin is also elevated. This may be secondary to his acute kidney injury. He denies having any chest pain. I did discuss the test results with the patient. I did recommend hospitalization for further care and evaluation. I did discuss case with the hospitalist and case filler. Medication Reconcilliation Current Medication List: was personally reviewed by me Blood Pressure Screening Patient's blood pressure: Normal blood pressure Blood pressure disposition: Did not require urgent referral Consults Time Called: 2215 Consulting Physician: Chun Patel Hospitalist Returned Call: [phone] I discussed the patients case with Chun Patel [facility]. The patient will be further evaluated. Impression Primary Impression: Dyspnea Additional Impressions: Elevated troponin YASIR (acute kidney injury) Bilateral pleural effusion Scribe Attestation The scribe's documentation has been prepared under my direct and personally reviewed by me in its entirety. I confirm that the note above accurately reflects all work, treatment, procedures, and medical decision making performed by me. Departure Information Dispostion Being Evaluated By Hospitalist Referrals Morris Pearson D.O. (PCP) Patient Instructions [facility] Problem Qualifiers Primary Impression: Dyspnea Dyspnea type: unspecified Qualified Codes: R06.00 - Dyspnea, unspecified
[2017-10-24] MEDS ORDERED: GLUCOSE 40% GEL 15 GM TUBE PO PRN (23:45)
[2017-10-24] MEDS ORDERED: GLUCAGON FOR INJ 1 MG VIAL SQ PRN (23:45)
[2017-10-24] MEDS ORDERED: NITROGLYCERIN 0.4 MG SL PER TAB CHARGE SL PRN (23:45)
[2017-10-24] MEDS ORDERED: DEXTROSE 50% 50 ML SYR IV PRN (23:45)
[2017-10-24] MEDS ORDERED: GLUCOSE 10 TABS/TUBE PO PRN (23:45)
[2017-10-24] MEDS ORDERED: AZITHROMYCIN 250 MG TAB PO STA (23:47)
[2017-10-25] VITALS (7 sets, daily range): BP systolic 103–122; BP diastolic 68–74; PULSE 60–74; TEMP 36.3–36.7; O2SAT 94–97; BMI 24.9
[2017-10-25] MEDS ORDERED: ACETAMINOPHEN 325 MG TAB PO PRN (01:30)
[2017-10-25] MEDS ORDERED: BENZONATATE 100MG CAP PO ONE (01:30)
[2017-10-25] MEDS ORDERED: AZITHROMYCIN 250 MG TAB ONE (02:00)
[2017-10-25] MEDS: INSULIN ASPART 100 UNITS/ML 3 ML PEN SC SCH ×5 (02:00→20:53)
--- NOTE | 2017-10-25 02:11 | History and Physical ---
History & Physical Date & Time of Service: Oct 25, 2017 at 01:34 Chief Complaint: Dyspnea, Elevated Troponin Primary Care Physician: Morris Pearson D.O. History of Present Illness Source: patient, clinic records, hospital records This is a 76 year old male with a PMH of CAD s/p CABG, ischemic cardiomyopathy and severe LV dysfunction with EF ~ 15% s/p biventricular ICD placement, L ventricular apical thrombus on Coumadin, L femoral endarterectomy and angio, HTN , DM2, HLD, hypothyroidism, CKD stage 3 - presents to the hospital with shortness of breath and head congestion. States that for the past few days, he felt a sinus headache with congestion and then became short of breath as well. Had some chills, but denied fevers. Denied nausea/vomiting/diarrhea. No chest pain or palpitations. Had a pacemaker check on 10/20. No other issues to note. On presentation, he states that he feels better after getting some antibiotics. Past Medical/Surgical History Medical Problems: (1) CHF (congestive heart failure) Status: Chronic (2) DM2 (diabetes mellitus, type 2) Status: Chronic (3) Heart disease Status: Chronic (4) History of left heart catheterization (LHC) Status: Chronic (5) HLD (hyperlipidemia) Status: Chronic (6) HTN (hypertension) Status: Chronic (7) Hypothyroidism Status: Chronic (8) ICD (implantable cardioverter-defibrillator) in place Status: Chronic (9) Ischemic cardiomyopathy Status: Chronic Surgical Problems: (1) Hx of CABG Permanent Comment: x2 2006 Status: Chronic (2) Hx of tonsillectomy Status: Chronic Family History FH: diabetes mellitus FH: lung disease Social History Smoking Status: Never Smoker Drug Use: none Marital Status: Housing status: lives with family Occupational Status: retired Immunizations History of Influenza Vaccine: Yes History of Tetanus Vaccine?: Yes History of Pneumococcal: Yes History of Hepatitis B Vaccine: No Multi-Drug Resistant Organisms History of MDRO: No Allergies Coded Allergies: No Known Drug Allergy (Verified Allergy, Unknown, ., 12/02/16) Home Medications Scheduled Aspirin (Aspirin Ec), 81 MG PO DAILY Atorvastatin (Lipitor), 40 MG PO DAILY Digoxin (Digoxin), 0.125 MG PO DAILY Gabapentin (Gabapentin), 100 MG PO TID Insulin Glargine (Lantus Solostar), 12 UNITS SC HS Isosorbide Mononitrate Ext Rel (Imdur Ext Rel), 15 MG PO QAM Levothyroxine Sodium (Levothyroxine Sodium), 175 MG PO DAILY Metoprolol Succinate (Metoprolol Succinate ER), 50 MG PO DAILY Sacubitril-Valsartan (Entresto 24-26 mg), 1 TAB PO BID Torsemide (Demadex), 20 MG PO BID Warfarin Sod (Coumadin), 5 MG PO DAILY Scheduled PRN Azelastine HCl (Azelastine Hydrochloride), 1 SPRAY SOHEILA DAILY PRN for Insulin Aspart (Novolog Flexpen), 0 UNITS SC ACHS PRN for Blood sugar Nitroglycerin (Nitrostat), 0.4 MG SL UD PRN for Chest Pain Review of Systems Constitutional: + chills, No fever, No sweats, No weakness, No fatigue ENT: + nasal symptoms, No hearing loss, No unusual epistaxis, No sore throat, No tinnitus, No trouble swallowing Respiratory: + cough, + sputum, + shortness of breath, No wheezing, No dyspnea on exertion, No dyspnea at rest, No hemoptysis Cardiovascular: No chest pain, No orthopnea, No edema, No palpitations Abdomen: No pain, No nausea, No vomiting, No diarrhea, No constipation, No GI bleeding Musculoskeletal: No joint pain, No muscle pain Genitourinary - Male: No hematuria, No dysuria, No urinary frequency, No urinary urgency Neurologic: No memory loss, No weakness, No numbness/tingling, No vertigo, No balance problems Psychiatric: No depression symptoms, No anxiety Endocrine: No fatigue Hematologic / Lymphatic: No abnormal bleeding/bruising Integumentary: No rash Allergic / Immunologic: No environmental allergies, No seasonal allergies Physical Exam Vital Signs Date Time Temp Pulse Resp B/P (MAP) Pulse Ox O2 Delivery O2 Flow Rate FiO2 10/25/17 01:14 36.7 67 20 106/68 97 Nasal Cannula 2.0 10/25/17 00:30 65 18 115/69 96 10/24/17 22:31 72 20 93 Room Air 10/24/17 21:23 71 20 114/70 93 Room Air 10/24/17 20:10 93 Room Air 10/24/17 19:46 36.6 69 16 109/67 97 Room Air General Appearance: no apparent distress Head: normocephalic, atraumatic Eyes: normal inspection ENT: hearing grossly normal Neck: supple Respiratory/Chest: chest non-tender, lungs clear, normal breath sounds, no respiratory distress, no accessory muscle use Cardiovascular: regular rate, rhythm, no murmur, + pertinent finding (+1 pitting edema b/l LE) Abdomen/GI: normal bowel sounds, non tender, soft Extremities/Musculoskelatal: no calf tenderness, normal range of motion, + pedal edema, + swelling, + pertinent finding (chronic venous stasis changes) 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, no motor/sensory deficits, alert, normal mood/affect, oriented x 3 Skin: normal color Lymphatic: no adenopathy Diagnostics Laboratory Results Results Past 24 Hours Test 10/24/17 21:08 Range/Units White Blood Count 6.54 4.8-10.8 K/uL Red Blood Count 4.76 4.7-6.1 M/uL Hemoglobin 15.7 14.0-18.0 g/dL Hematocrit 47.7 42-52 % Mean Corpuscular Volume 100.2 80-100 fL Mean Corpuscular Hemoglobin 33.0 25-34 pg Mean Corpuscular Hemoglobin Concent 32.9 32-36 g/dl Platelet Count 168 130-400 K/uL Mean Platelet Volume 11.3 7.4-10.4 fL Neutrophils (%) (Auto) 79.9 % Lymphocytes (%) (Auto) 10.2 % Monocytes (%) (Auto) 7.2 % Eosinophils (%) (Auto) 2.0 % Basophils (%) (Auto) 0.5 % Neutrophils # (Auto) 5.23 1.4-6.5 K/uL Lymphocytes # (Auto) 0.67 1.2-3.4 K/uL Monocytes # (Auto) 0.47 0.11-0.59 K/uL Eosinophils # (Auto) 0.13 0-0.5 K/uL Basophils # (Auto) 0.03 0-0.2 K/uL RDW Standard Deviation 64.9 36.4-46.3 fL RDW Coefficient of Variation 17.8 11.5-14.5 % Immature Granulocyte % (Auto) 0.2 % Immature Granulocyte # (Auto) 0.01 0.00-0.02 K/uL Prothrombin Time 24.4 9.0-12.0 SECONDS Prothromb Time International Ratio 2.2 0.9-1.1 Activated Partial Thromboplast Time 52.0 21.0-31.0 SECONDS Partial Thromboplastin Ratio 2.0 Sodium Level 136 136-145 mmol/L Potassium Level 4.4 3.5-5.1 mmol/L Chloride Level 100 98-107 mmol/L Carbon Dioxide Level 29 21-32 mmol/L Anion Gap 7.0 3-11 mmol/L Blood Urea Nitrogen 64 7-18 mg/dl Creatinine 2.17 0.60-1.40 mg/dl Est Creatinine Clear Calc Drug Dose 26.9 ml/min Estimated GFR () 33.5 Estimated GFR (Non- 28.9 BUN/Creatinine Ratio 29.6 10-20 Random Glucose 197 70-99 mg/dl Calcium Level 10.0 8.5-10.1 mg/dl Troponin I 0.102 0-0.045 ng/ml Pro-B-Type Natriuretic Peptide 8802 0-900 pg/ml Microbiology Results 10/24/17 Blood Culture, Received Pending 10/24/17 Blood Culture, Received Pending Diagnostic Radiology CHEST 2 VIEWS ROUTINE HISTORY: Short of breath. eval for pna COMPARISON: Chest 05/01/2016. FINDINGS: No pneumothorax. Small bilateral pleural effusions, left greater than right. Bibasilar densities are nonspecific but favor atelectasis. No evidence for pulmonary edema. Postoperative changes. The heart remains mildly enlarged. Left-sided pacemaker/defibrillator. IMPRESSION: 1. Small bilateral pleural effusions. 2. Bibasilar densities are nonspecific but favor atelectasis from the pleural effusion. Stable cardiomegaly. EKG Atrial-sensed ventricular-paced rhythm Biventricular pacemaker detected Impression Assessment and Plan This is a 76 year old male with a PMH of CAD s/p CABG, ischemic cardiomyopathy and severe LV dysfunction with EF ~ 15% s/p biventricular ICD placement, L ventricular apical thrombus on Coumadin, L femoral endarterectomy and angio, HTN , DM2, HLD, hypothyroidism, CKD stage 3 - presents to the hospital with shortness of breath and head congestion. Sinusitis vs. URI vs. Early Pneumonia patient presented with shortness of breath, mild hypoxia requiring 2L of O2 CXR with some bilateral pleural effusions noted improvement clinically after receiving antibiotics will check rapid flu check lactic acid and procalcitonin blood cultures pending Rocephin + Azithro for now CAD s/p CABG Elevated Troponin mild elevation in troponin, going through records, this seems to be a chronic elevation no currently chest pain will trend cardiac enzymes echo in July 2017 with EF of 20-25%, severe pulmonary HTN continue aspirin, statin, b-tea, Imdur Acute Kidney Injury superimposed on CKD stage 3 creatinine elevation to 2.17 baseline creat = 1.4-1.5 will hold Torsemide for now hold off on IV fluids for now Severe Ischemic Cardiomyopathy Severe LV Dysfunction echo = EF of 20-25% s/p biventricular pacer with recent pacer check continue Entresto (DARRELL-I intolerance) L Ventricular Thrombus patient is on Coumadin, we will continue this, INR therapeutic DM2 hold oral agents Lantus 5 units BID insulin sliding scale Hypothyroidism continue Synthroid DVT ppx Coumadin FULL CODE Advanced Directives Existing Living Will: No Existing Power of Bottle Line Worker: No VTE Prophylaxis VTE Risk Assessment Done? Y/N: Yes Risk Level: Moderate Given or contraindicated: Warfarin (Coumadin)
[2017-10-25] MEDS: INSULIN GLARGINE SOLOSTAR 100 UNITS/ML 3 ML PEN SC SCH ×3 (02:14→20:49)
[2017-10-25 02:25] LABS: INFLUENZA A PCR Neg for Influ A (NEG); INFLUENZA B PCR Neg for Influ B (NEG)
[2017-10-25 05:55] LABS: HEMATOCRIT 44.2 % (42-52); MEAN CELL VOLUME 99.8 fL (80-100); MEAN CORPUSCULAR HEMOGLOBIN 31.8 pg (25-34); MEAN CORPUSCULAR HGB CONC 31.9 g/dl (32-36); MEAN PLATELET VOLUME 11.1 fL (7.4-10.4); PLATELET COUNT 157 K/uL (130-400); RED BLOOD COUNT 4.43 M/uL (4.7-6.1); WHITE BLOOD COUNT 6.75 K/uL (4.8-10.8)
[2017-10-25] MEDS ORDERED: LEVOTHYROXINE 175 MCG TAB PO SCH (06:00)
[2017-10-25 06:02] LABS: INR 2.4 (0.9-1.1); PROTHROMBIN TIME (PATIENT) 26.2 SECONDS (9.0-12.0)
[2017-10-25] MEDS: LEVOTHYROXINE 175 MCG TAB PO SCH (06:02)
[2017-10-25 06:25] LABS: BUN/CREATININE RATIO 31.2 (10-20); CREATININE 2.18 mg/dl (0.60-1.40); MAGNESIUM 2.1 mg/dl (1.8-2.4); POTASSIUM 4.5 mmol/L (3.5-5.1)
[2017-10-25] MEDS: GABAPENTIN 100 MG CAP PO SCH ×3 (07:39→20:45)
[2017-10-25] MEDS: ATORVASTATIN 40 MG TAB PO SCH (07:40)
[2017-10-25] MEDS: ISOSORBIDE MONONITRATE 30 MG TABCR PO SCH (07:40)
[2017-10-25] MEDS: SACUBITRIL-VALSARTAN 24-26 MG TAB PO SCH ×2 (07:40→20:46)
[2017-10-25] MEDS: AZITHROMYCIN 250 MG TAB PO SCH (07:40)
[2017-10-25] MEDS: METOPROLOL SUCC 50MG EXT REL TAB PO SCH (07:40)
[2017-10-25] MEDS: ASPIRIN 81 MG ECTAB PO SCH (07:40)
[2017-10-25] MEDS ORDERED: FLUTICASONE PROPIONATE NA SPR 16 GM BTL ONE (11:13)
--- NOTE | 2017-10-25 11:32 | Progress Note ---
Medicine Progress Note Date & Time of Visit: Oct 25, 2017 at 10:36. Subjective Pt was seen and examined Sitting at the edge of the bed with no distress Pt said that whenever lying down he feels congested around his nasal area He said that he feels stuffy in his nose He said that he does have some back pain in his lower back Denies any chest pain, palpitation, dizziness Objective Last 8 Hrs Date Time Temp Pulse Resp B/P (MAP) Pulse Ox O2 Delivery O2 Flow Rate FiO2 10/25/17 07:11 36.6 68 20 111/68 (82) 97 Room Air 10/25/17 04:47 36.4 60 17 122/74 (90) 96 Room Air 10/25/17 04:00 Nasal Cannula 2.0 Physical Exam: General- No acute distress Head- atraumatic Eyes- PERRL, EOMI ENT- Swelling turbinates, dry greenish nasal mucus Neck- supple, no JVD Lungs- clear to auscultation and percussion Heart- regular rhythm Extremities- no calf tenderness Neuro- alert, oriented x 3; PERRL, EOMI; no facial palsy Skin- warm & dry Laboratory Results: Last 24 Hours Test 10/24/17 21:08 10/25/17 01:50 10/25/17 02:08 10/25/17 05:37 White Blood Count 6.54 K/uL 6.75 K/uL Red Blood Count 4.76 M/uL 4.43 M/uL Hemoglobin 15.7 g/dL 14.1 g/dL Hematocrit 47.7 % 44.2 % Mean Corpuscular Volume 100.2 fL 99.8 fL Mean Corpuscular Hemoglobin 33.0 pg 31.8 pg Mean Corpuscular Hemoglobin Concent 32.9 g/dl 31.9 g/dl Platelet Count 168 K/uL 157 K/uL Mean Platelet Volume 11.3 fL 11.1 fL Neutrophils (%) (Auto) 79.9 % Lymphocytes (%) (Auto) 10.2 % Monocytes (%) (Auto) 7.2 % Eosinophils (%) (Auto) 2.0 % Basophils (%) (Auto) 0.5 % Neutrophils # (Auto) 5.23 K/uL Lymphocytes # (Auto) 0.67 K/uL Monocytes # (Auto) 0.47 K/uL Eosinophils # (Auto) 0.13 K/uL Basophils # (Auto) 0.03 K/uL RDW Standard Deviation 64.9 fL 64.6 fL RDW Coefficient of Variation 17.8 % 17.7 % Immature Granulocyte % (Auto) 0.2 % Immature Granulocyte # (Auto) 0.01 K/uL Prothrombin Time 24.4 SECONDS 26.2 SECONDS Prothromb Time International Ratio 2.2 2.4 Activated Partial Thromboplast Time 52.0 SECONDS Partial Thromboplastin Ratio 2.0 Sodium Level 136 mmol/L 133 mmol/L Potassium Level 4.4 mmol/L 4.5 mmol/L Chloride Level 100 mmol/L 100 mmol/L Carbon Dioxide Level 29 mmol/L 26 mmol/L Anion Gap 7.0 mmol/L 7.0 mmol/L Blood Urea Nitrogen 64 mg/dl 68 mg/dl Creatinine 2.17 mg/dl 2.18 mg/dl Est Creatinine Clear Calc Drug Dose 26.9 ml/min 26.8 ml/min Estimated GFR () 33.5 33.3 Estimated GFR (Non- 28.9 28.8 BUN/Creatinine Ratio 29.6 31.2 Random Glucose 197 mg/dl 183 mg/dl Calcium Level 10.0 mg/dl 9.0 mg/dl Troponin I 0.102 ng/ml 0.105 ng/ml Pro-B-Type Natriuretic Peptide 8802 pg/ml Influenza Type A (RT-PCR) Neg for Influ A Influenza Type A Antigen Neg for Influ A Influenza Type B Antigen Neg for Influ B Influenza Type B (RT-PCR) Neg for Influ B Bedside Glucose 175 mg/dl Lactic Acid Level 2.0 mmol/L Magnesium Level 2.1 mg/dl Total Creatine Kinase 62 U/L Creatine Kinase MB 2.5 ng/ml Creatine Kinase MB Ratio 4.0 Procalcitonin 0.29 ng/ml Test 10/25/17 06:46 Bedside Glucose 151 mg/dl Date/Time Source Procedure Growth Status 10/24/17 21:08 Blood Blood Culture Pending Received 10/24/17 20:23 Blood Blood Culture Pending Received Assessment & Plan Sinusitis Mostly bacteria etiology Presented with nasal congestion, shortness of breath, mild hypoxia requiring 2L of O2 CXR showed bibasilar densities are nonspecific but favor atelectasis from the pleural effusion. Flu negative for influenza Lactic acid and procalcitonin wnl blood cultures pending On Rocephin + Azithro for now Will add flonase and nasal saline Clinically improved CAD s/p CABG Elevated Troponin Mild elevation in troponin seems to be a chronic elevation from previous lab Denies any chest pain Will continue monitor troponin continue aspirin, statin, b-tea, Imdur Last echo in July 2017 showed EF of 20-25%, severe pulmonary HTN Continue monitor in telemetry Acute Kidney Injury superimposed on CKD stage 3 Creatinine on admission 2.1 baseline creatine between 1.4-1.5 Creatine today 2.1 Continue holding torsemide Continue monitor BMP Avoid nephrotoxic agents If creatine does not improve tomorrow, consider to hold entresto Might get an u/s renal if worsening Severe Ischemic Cardiomyopathy Severe LV Dysfunction Echo = EF of 20-25% s/p biventricular pacer with recent pacer check On Entresto (DARRELL-I intolerance), will consider to hold if creatine not improve L Ventricular Thrombus On Coumadin INR 2.4 (Therapeutic) stable DM2 Continue Lantus insulin sliding scale Monitor BS Hypothyroidism continue Synthroid DVT ppx Coumadin FULL CODE Current Inpatient Medications: Current Inpatient Medications Medications (Trade) Dose Ordered Sig/Fadi Route Start Time Stop Time Status Last Admin Dose Admin Ceftriaxone Sodium 1 gm/ Dextrose 50 ml @ 100 mls/hr Q24H IV 10/25/17 22:00 11/01/17 21:59 Azithromycin (Zithromax Tab) 250 mg QAM PO 10/25/17 09:00 11/01/17 08:59 10/25/17 07:40 250 MG Aspirin (Ecotrin Tab) 81 mg DAILY PO 10/25/17 09:00 11/24/17 08:59 10/25/17 07:40 81 MG Atorvastatin Calcium (Lipitor Tab) 40 mg DAILY PO 10/25/17 09:00 11/24/17 08:59 10/25/17 07:40 40 MG Digoxin (Lanoxin Tab) 0.125 mg DAILY@1600 PO 10/25/17 16:00 11/24/17 15:59 Gabapentin (Neurontin Cap) 100 mg TID PO 10/25/17 09:00 11/24/17 08:59 10/25/17 07:39 100 MG Isosorbide Mononitrate (Imdur Ext Rel Tab) 15 mg QAM PO 10/25/17 09:00 11/24/17 08:59 10/25/17 07:40 15 MG Metoprolol Succinate (Toprol Xl Tab) 50 mg DAILY PO 10/25/17 09:00 11/24/17 08:59 10/25/17 07:40 50 MG Nitroglycerin (Nitrostat Tab) 0.4 mg UD PRN SL 10/24/17 23:45 11/23/17 23:44 Sacubitril/ Valsartan (Entresto 24-26 Mg) 1 tab BID PO 10/25/17 09:00 11/24/17 08:59 10/25/17 07:40 1 TAB Warfarin Sodium (Coumadin Tab) 5 mg DAILY@1600 PO 10/25/17 16:00 11/24/17 15:59 Insulin Glargine (Lantus Solostar Pen) 5 units Q12 SC 10/25/17 02:00 11/24/17 01:59 10/25/17 07:58 5 UNITS Insulin Aspart (novoLOG ASPART) SLIDING SCALE If C... ACHS SC 10/25/17 02:00 11/24/17 01:59 10/25/17 08:01 2 UNITS Glucose (Glucose 40% Gel) 15-30 GRAMS 15 GRAMS... UD PRN PO 10/24/17 23:45 11/23/17 23:44 Glucose (Glucose Chew Tab) 4-8 Tablets 4 Tabl... UD PRN PO 10/24/17 23:45 11/23/17 23:44 Dextrose (Dextrose 50% 50ML Syringe) 25-50ML OF 50% DW IV FOR... UD PRN IV 10/24/17 23:45 11/23/17 23:44 Glucagon (Glucagon Inj) 1 mg UD PRN SQ 10/24/17 23:45 11/23/17 23:44 Acetaminophen (Tylenol Tab) 650 mg Q4H PRN PO 10/25/17 01:30 11/24/17 01:29 Levothyroxine Sodium (Synthroid Tab) 175 mcg DAILYBB PO 10/25/17 06:00 11/24/17 05:59 10/25/17 06:02 175 MCG
[2017-10-25] MEDS: SODIUM CHLORIDE 0.65% NA SOLN 45 ML (OCEAN) SCH ×2 (12:26→17:35)
[2017-10-25] MEDS: WARFARIN SOD 5 MG TAB PO SCH (16:43)
[2017-10-25] MEDS: DIGOXIN 0.125 MG TAB PO SCH (16:43)
[2017-10-25] MEDS: CEFTRIAXONE SOD INJ 1 GM in DEXTROSE 5% ADD-VANTAGE 50ML 50 ML IV SCH (21:13)
[2017-10-26] VITALS (9 sets, daily range): BP systolic 105–129; BP diastolic 68–82; PULSE 59–72; TEMP 36.3–36.5; O2SAT 92–98
[2017-10-26] MEDS: SODIUM CHLORIDE 0.65% NA SOLN 45 ML (OCEAN) SCH ×4 (05:36→17:03)
[2017-10-26] MEDS: LEVOTHYROXINE 175 MCG TAB PO SCH (05:36)
[2017-10-26] MEDS: INSULIN ASPART 100 UNITS/ML 3 ML PEN SC SCH ×4 (07:00→20:20)
[2017-10-26 07:54] LABS: HEMATOCRIT 43.9 % (42-52); MEAN CELL VOLUME 98.2 fL (80-100); MEAN CORPUSCULAR HGB CONC 32.6 g/dl (32-36); MEAN PLATELET VOLUME 11.2 fL (7.4-10.4); PLATELET COUNT 172 K/uL (130-400); RED BLOOD COUNT 4.47 M/uL (4.7-6.1); WHITE BLOOD COUNT 5.72 K/uL (4.8-10.8)
[2017-10-26] MEDS: GABAPENTIN 100 MG CAP PO SCH ×3 (08:04→20:17)
[2017-10-26] MEDS: ISOSORBIDE MONONITRATE 30 MG TABCR PO SCH (08:05)
[2017-10-26] MEDS: AZITHROMYCIN 250 MG TAB PO SCH (08:05)
[2017-10-26] MEDS: METOPROLOL SUCC 50MG EXT REL TAB PO SCH (08:05)
[2017-10-26] MEDS: ASPIRIN 81 MG ECTAB PO SCH (08:06)
[2017-10-26] MEDS: ATORVASTATIN 40 MG TAB PO SCH (08:06)
[2017-10-26] MEDS: SACUBITRIL-VALSARTAN 24-26 MG TAB PO SCH ×2 (08:06→20:16)
[2017-10-26] MEDS: FLUTICASONE PROPIONATE NA SPR 16 GM BTL SCH (08:07)
[2017-10-26 08:19] LABS: BUN/CREATININE RATIO 36.4 (10-20); CALCIUM 9.3 mg/dl (8.5-10.1); CREATININE 2.19 mg/dl (0.60-1.40); POTASSIUM 4.4 mmol/L (3.5-5.1)
[2017-10-26] MEDS: INSULIN GLARGINE SOLOSTAR 100 UNITS/ML 3 ML PEN SC SCH ×2 (08:25→20:21)
--- NOTE | 2017-10-26 13:51 | Progress Note ---
Medicine Progress Note Date & Time of Visit: Oct 26, 2017 at 13:46. Subjective Pt was seen and examined Sitting in chair with no distress Pt said that he slightly feels better continue to feel congested denies any chest pain, palpitation and dizziness Objective Last 8 Hrs Date Time Temp Pulse Resp B/P (MAP) Pulse Ox O2 Delivery O2 Flow Rate FiO2 10/26/17 12:00 Room Air 10/26/17 11:07 36.4 61 20 116/71 (86) 97 Room Air 10/26/17 08:00 Room Air 10/26/17 07:55 36.4 59 20 113/72 (86) 95 Room Air Physical Exam: General- No acute distress Head- atraumatic Eyes- PERRL, EOMI ENT- Swelling turbinates, dry greenish nasal mucus Neck- supple, no JVD Lungs- clear to auscultation and percussion Heart- regular rhythm Extremities- no calf tenderness Neuro- alert, oriented x 3; PERRL, EOMI; no facial palsy Skin- warm & dry Laboratory Results: Last 24 Hours Test 10/25/17 15:47 10/25/17 19:35 10/26/17 06:42 10/26/17 07:02 Bedside Glucose 145 mg/dl 180 mg/dl 54 mg/dl 60 mg/dl Test 10/26/17 07:15 10/26/17 07:38 10/26/17 11:33 Bedside Glucose 108 mg/dl 204 mg/dl White Blood Count 5.72 K/uL Red Blood Count 4.47 M/uL Hemoglobin 14.3 g/dL Hematocrit 43.9 % Mean Corpuscular Volume 98.2 fL Mean Corpuscular Hemoglobin 32.0 pg Mean Corpuscular Hemoglobin Concent 32.6 g/dl RDW Standard Deviation 63.5 fL RDW Coefficient of Variation 17.7 % Platelet Count 172 K/uL Mean Platelet Volume 11.2 fL Sodium Level 133 mmol/L Potassium Level 4.4 mmol/L Chloride Level 99 mmol/L Carbon Dioxide Level 22 mmol/L Anion Gap 13.0 mmol/L Blood Urea Nitrogen 80 mg/dl Creatinine 2.19 mg/dl Est Creatinine Clear Calc Drug Dose 26.7 ml/min Estimated GFR () 33.2 Estimated GFR (Non- 28.6 BUN/Creatinine Ratio 36.4 Random Glucose 93 mg/dl Calcium Level 9.3 mg/dl Troponin I 0.067 ng/ml Assessment & Plan Sinusitis Mostly bacteria etiology Presented with nasal congestion, shortness of breath, mild hypoxia requiring 2L of O2 CXR showed bibasilar densities are nonspecific but favor atelectasis from the pleural effusion. Flu negative for influenza Lactic acid and procalcitonin wnl blood cultures pending Continue Rocephin + Azithro for now On flonase and nasal saline Clinically improved CAD s/p CABG Elevated Troponin Mild elevation in troponin seems to be a chronic elevation from previous lab Denies any chest pain Troponin trending down continue aspirin, statin, b-tea, Imdur Last echo in July 2017 showed EF of 20-25%, severe pulmonary HTN Continue monitor in telemetry Acute Kidney Injury superimposed on CKD stage 3 Creatinine on admission 2.1 baseline creatine between 1.4-1.5 Creatine today 2.1 Continue holding torsemide Continue monitor BMP Avoid nephrotoxic agents If creatine does not improve tomorrow, consider to hold entresto Might get an u/s renal if worsening Severe Ischemic Cardiomyopathy Severe LV Dysfunction Echo = EF of 20-25% s/p biventricular pacer with recent pacer check On Entresto (DARRELL-I intolerance), will consider to hold if creatine not improve L Ventricular Thrombus On Coumadin INR 2.4 (Therapeutic) yesterday stable DM2 Low BS Hold Lantus insulin sliding scale Monitor BS Hypothyroidism continue Synthroid DVT ppx Coumadin FULL CODE Current Inpatient Medications: Current Inpatient Medications Medications (Trade) Dose Ordered Sig/Fadi Route Start Time Stop Time Status Last Admin Dose Admin Ceftriaxone Sodium 1 gm/ Dextrose 50 ml @ 100 mls/hr Q24H IV 10/25/17 22:00 11/01/17 21:59 10/25/17 21:13 100 MLS/HR Azithromycin (Zithromax Tab) 250 mg QAM PO 10/25/17 09:00 11/01/17 08:59 10/26/17 08:05 250 MG Aspirin (Ecotrin Tab) 81 mg DAILY PO 10/25/17 09:00 11/24/17 08:59 10/26/17 08:06 81 MG Atorvastatin Calcium (Lipitor Tab) 40 mg DAILY PO 10/25/17 09:00 11/24/17 08:59 10/26/17 08:06 40 MG Digoxin (Lanoxin Tab) 0.125 mg DAILY@1600 PO 10/25/17 16:00 11/24/17 15:59 10/25/17 16:43 0.125 MG Gabapentin (Neurontin Cap) 100 mg TID PO 10/25/17 09:00 11/24/17 08:59 10/26/17 08:04 100 MG Isosorbide Mononitrate (Imdur Ext Rel Tab) 15 mg QAM PO 10/25/17 09:00 11/24/17 08:59 10/26/17 08:05 15 MG Metoprolol Succinate (Toprol Xl Tab) 50 mg DAILY PO 10/25/17 09:00 11/24/17 08:59 10/26/17 08:05 50 MG Nitroglycerin (Nitrostat Tab) 0.4 mg UD PRN SL 10/24/17 23:45 11/23/17 23:44 Sacubitril/ Valsartan (Entresto 24-26 Mg) 1 tab BID PO 10/25/17 09:00 11/24/17 08:59 10/26/17 08:06 1 TAB Warfarin Sodium (Coumadin Tab) 5 mg DAILY@1600 PO 10/25/17 16:00 11/24/17 15:59 10/25/17 16:43 5 MG Insulin Glargine (Lantus Solostar Pen) 5 units Q12 SC 10/25/17 02:00 11/24/17 01:59 10/25/17 20:49 5 UNITS Insulin Aspart (novoLOG ASPART) SLIDING SCALE If C... ACHS SC 10/25/17 02:00 11/24/17 01:59 10/26/17 12:19 8 UNITS Glucose (Glucose 40% Gel) 15-30 GRAMS 15 GRAMS... UD PRN PO 10/24/17 23:45 11/23/17 23:44 Glucose (Glucose Chew Tab) 4-8 Tablets 4 Tabl... UD PRN PO 10/24/17 23:45 11/23/17 23:44 Dextrose (Dextrose 50% 50ML Syringe) 25-50ML OF 50% DW IV FOR... UD PRN IV 10/24/17 23:45 11/23/17 23:44 Glucagon (Glucagon Inj) 1 mg UD PRN SQ 10/24/17 23:45 11/23/17 23:44 Acetaminophen (Tylenol Tab) 650 mg Q4H PRN PO 10/25/17 01:30 11/24/17 01:29 Levothyroxine Sodium (Synthroid Tab) 175 mcg DAILYBB PO 10/25/17 06:00 11/24/17 05:59 10/26/17 05:36 175 MCG Fluticasone Propionate (Flonase Nasal [place]) 2 sprays DAILY NA 10/26/17 09:00 11/25/17 08:59 10/26/17 08:07 2 SPRAYS Sodium Chloride ([place] Nasal [place]) 2 sprays Q6 NA 10/25/17 12:00 11/24/17 11:59 10/26/17 12:21 2 SPRAYS
[2017-10-26] MEDS: DIGOXIN 0.125 MG TAB PO SCH (17:01)
[2017-10-26] MEDS: WARFARIN SOD 5 MG TAB PO SCH (17:03)
[2017-10-26] MEDS: CEFTRIAXONE SOD INJ 1 GM in DEXTROSE 5% ADD-VANTAGE 50ML 50 ML IV SCH (20:17)
[2017-10-27] VITALS (11 sets, daily range): BP systolic 100–117; BP diastolic 55–77; PULSE 60–77; TEMP 34.1–36.4; O2SAT 94–99; BMI 25.1
[2017-10-27 04:45] LABS: COMPLETE YES; HEMATOCRIT 45.5 % (42-52); IG% 0.2 %; LYMPH % 8.7 %; LYMPH ABS # 0.46 K/uL (1.2-3.4); MEAN CELL VOLUME 96.2 fL (80-100); MEAN CORPUSCULAR HEMOGLOBIN 31.3 pg (25-34); MEAN CORPUSCULAR HGB CONC 32.5 g/dl (32-36); MEAN PLATELET VOLUME 10.9 fL (7.4-10.4); NEUT % 88.1 %; PLATELET COUNT 177 K/uL (130-400); RED BLOOD COUNT 4.73 M/uL (4.7-6.1); WHITE BLOOD COUNT 5.28 K/uL (4.8-10.8)
[2017-10-27] MEDS ORDERED: SODIUM CHLORIDE 0.9% 250ML 250 ML IV ONE (04:45)
[2017-10-27] MEDS: SODIUM CHLORIDE 0.65% NA SOLN 45 ML (OCEAN) SCH ×4 (04:50→17:20)
[2017-10-27] MEDS: LEVOTHYROXINE 175 MCG TAB PO SCH (04:51)
[2017-10-27 04:53] LABS: INR 3.3 (0.9-1.1); PROTHROMBIN TIME (PATIENT) 36.7 SECONDS (9.0-12.0)
[2017-10-27 05:08] LABS: BUN/CREATININE RATIO 41.2 (10-20); CALCIUM 9.1 mg/dl (8.5-10.1); CREATININE 2.23 mg/dl (0.60-1.40); MAGNESIUM 2.1 mg/dl (1.8-2.4); POTASSIUM 5.1 mmol/L (3.5-5.1)
[2017-10-27 05:12] LABS: MANUAL MICROSCOPIC REQUIRED? NO; REVIEW REQ? YES; URINE APPEARANCE CLEAR (CLEAR); URINE BILIRUBIN NEG (NEG); URINE COLOR DK YELLOW; URINE NITRITE NEG (NEG); URINE SPECIFIC GRAVITY 1.021 (1.000-1.030); UROBILINOGEN NEG (NEG); ZZUR CULT IF INDIC CLEAN CATCH NO
[2017-10-27 05:43] LABS: THYROID STIMULATING HORMONE 3.36 uIu/ml (0.300-4.500)
[2017-10-27] MEDS: INSULIN ASPART 100 UNITS/ML 3 ML PEN SC SCH ×4 (07:37→20:07)
[2017-10-27] MEDS: ISOSORBIDE MONONITRATE 30 MG TABCR PO SCH (07:38)
[2017-10-27] MEDS: ASPIRIN 81 MG ECTAB PO SCH (07:39)
[2017-10-27] MEDS: METOPROLOL SUCC 50MG EXT REL TAB PO SCH (07:39)
[2017-10-27] MEDS: AZITHROMYCIN 250 MG TAB PO SCH (07:39)
[2017-10-27] MEDS: GABAPENTIN 100 MG CAP PO SCH ×3 (07:39→20:05)
[2017-10-27] MEDS: ATORVASTATIN 40 MG TAB PO SCH (07:39)
[2017-10-27] MEDS: FLUTICASONE PROPIONATE NA SPR 16 GM BTL SCH (07:40)
[2017-10-27] MEDS: INSULIN GLARGINE SOLOSTAR 100 UNITS/ML 3 ML PEN SC SCH ×2 (07:41→20:08)
--- NOTE | 2017-10-27 09:07 | NEPHROLOGY CONSULTATION ---
DATE OF CONSULTATION: 10/27/2017 ATTENDING OF RECORD: Dr. Bill. REASON FOR CONSULTATION: YASIR. HISTORY OF PRESENT ILLNESS: This is a 76-year-old male with significant cardiac history with an EF of 15% with biventricular AICD, who has a baseline creatinine of 1.5, who had worsening lower extremity swelling last week and took an extra dose of water pill b.i.d. for about 4 days to help with the lower extremity swelling. At the same time, the patient was also having head congestion and tightness and comes in with elevated creatinine of 2.17. Diuretics have been on hold and despite that the creatinine still at 2.2. Sodium level has trended down from 136 down to 127. The patient still has sinus congestion. Temperature went down to 35.3 last night and then Susie Hugger was started to help raise his core temperature. The patient is sitting on the side of the bed, eating breakfast, still with sinus congestion and tightness, but overall stating that he is starting to breathe better. PAST MEDICAL HISTORY: Type 2 diabetes, hyperlipidemia, hypertension, hypothyroidism, ischemic cardiomyopathy, and CKD stage III. PAST SURGICAL HISTORY: CABG x2 in 2006 as well as a tonsillectomy. FAMILY HISTORY: Significant for diabetes. SOCIAL HISTORY: No smoking, no alcohol, and no drugs. He is and lives with his family. HOME MEDICATIONS: Torsemide 20 mg. He was taking it once a day and has been taking it twice a day for about 4 days prior to coming in. CURRENT MEDICATIONS: Prednisone 20 mg daily, ceftriaxone 1 gram IV daily, digoxin 0.125 mg daily, Coumadin 5 mg daily, azithromycin 250 mg daily, aspirin 81 mg daily, Lipitor 40 mg daily, Neurontin 100 mg p.o. t.i.d., Imdur 15 mg daily, Toprol-XL 50 mg daily, levothyroxine 175 mcg daily, and Lantus 5 units subQ q. 12 hours. REVIEW OF SYSTEMS: No fevers or chills. Positive sinus congestion and pressure. Positive chest tightness with difficulty to cough things up. No nausea or vomiting. No diarrhea or constipation. No dysuria or hematuria. No blurry vision. No itching or rash. All other review of systems otherwise negative. PHYSICAL EXAMINATION: VITAL SIGNS: Temperature 36.4, pulse 65, respiratory rate is 20, blood pressure 117/74, and satting 96% on room air. GENERAL: Awake, alert, and oriented x3. EYES: No scleral icterus. ENT: Moist mucous membranes. NECK: Supple. PULMONARY: Clear to auscultation. CARDIAC: Regular rate and rhythm. ABDOMEN: Bowel sounds positive. Soft and nontender. EXTREMITIES: Very mild lower extremity swelling. NEUROLOGICALLY: Nonfocal. DERMATOLOGIC: No rash or ulcers noted. LABORATORY DATA: Sodium level is 127, potassium is 5.1, chloride is 98, bicarbonate is 19, BUN is 92, creatinine is 2.23, glucose is 207, calcium 9.1, and magnesium is 2.1. TSH 3.36. White count 5.2, H&H 14 and 45, and platelet count 177. INR is 3.3. Flu negative. Chest x-ray on admission shows small bilateral pleural effusions, bibasilar densities, nonspecific. IMPRESSION AND PLAN: 1. Acute kidney injury with a creatinine up to 2.2 with a baseline of 1.5. Diuretics are on hold since admission and despite that creatinine has not improved, currently on prednisone and ceftriaxone, the patient is slowly starting to breathe better, but still is significantly symptomatic. Okay with current course and plan. I would continue to hold the diuretics while watching volume status closely. No role for dialysis at this time. 2. Hyponatremia. Sodium level has trended down from 136 to 127. We will go ahead and put the patient on free water restriction and check urine osmolality. The patient in my opinion looks euvolemic to dry. Hesitant to use low rate IV fluids at this time given his significant cardiomyopathy. I would like to try a free water restriction for now. If sodium level though continues to trend down, we will start patient on normal saline at 50 mL an hour. I will recheck the sodium level this afternoon to follow trends and check a urine osmolality. Thyroid levels are stable at 3.36. I appreciate the consultation.
[2017-10-27 14:42] LABS: BUN/CREATININE RATIO 32.7 (10-20); CALCIUM 9.4 mg/dl (8.5-10.1); CREATININE 2.78 mg/dl (0.60-1.40); POTASSIUM 5.3 mmol/L (3.5-5.1)
--- NOTE | 2017-10-27 15:15 | Progress Note ---
Medicine Progress Note Date & Time of Visit: Oct 27, 2017 at 10:59. Subjective Pt was seen and examined Lying in bed with no distress Pt said that he is starting to breath better He said that they told him his temp is low, but he does not feel cold he denies any chest pain, palpitation, dizziness Objective Last 8 Hrs Date Time Temp Pulse Resp B/P (MAP) Pulse Ox O2 Delivery O2 Flow Rate FiO2 10/27/17 12:51 34.1 10/27/17 12:00 Room Air 10/27/17 11:29 70 20 115/75 (88) 98 Room Air 10/27/17 08:00 Room Air 10/27/17 07:58 36.4 65 20 117/74 (88) 96 Room Air Physical Exam: General- No acute distress Head- atraumatic Eyes- PERRL, EOMI ENT- Swelling turbinates improved Neck- supple, no JVD Lungs- Decrease BS Heart- regular rhythm Extremities- no calf tenderness Neuro- alert, oriented x 3; PERRL, EOMI; no facial palsy Skin- warm & dry Laboratory Results: Last 24 Hours Test 10/26/17 16:11 10/26/17 20:09 10/27/17 03:13 10/27/17 04:36 Bedside Glucose 210 mg/dl 205 mg/dl 173 mg/dl White Blood Count 5.28 K/uL Red Blood Count 4.73 M/uL Hemoglobin 14.8 g/dL Hematocrit 45.5 % Mean Corpuscular Volume 96.2 fL Mean Corpuscular Hemoglobin 31.3 pg Mean Corpuscular Hemoglobin Concent 32.5 g/dl Platelet Count 177 K/uL Mean Platelet Volume 10.9 fL Neutrophils (%) (Auto) 88.1 % Lymphocytes (%) (Auto) 8.7 % Monocytes (%) (Auto) 3.0 % Eosinophils (%) (Auto) 0.0 % Basophils (%) (Auto) 0.0 % Neutrophils # (Auto) 4.65 K/uL Lymphocytes # (Auto) 0.46 K/uL Monocytes # (Auto) 0.16 K/uL Eosinophils # (Auto) 0.00 K/uL Basophils # (Auto) 0.00 K/uL RDW Standard Deviation 59.6 fL RDW Coefficient of Variation 17.1 % Immature Granulocyte % (Auto) 0.2 % Immature Granulocyte # (Auto) 0.01 K/uL Prothrombin Time 36.7 SECONDS Prothromb Time International Ratio 3.3 Sodium Level 127 mmol/L Potassium Level 5.1 mmol/L Chloride Level 98 mmol/L Carbon Dioxide Level 19 mmol/L Anion Gap 10.0 mmol/L Blood Urea Nitrogen 92 mg/dl Creatinine 2.23 mg/dl Est Creatinine Clear Calc Drug Dose 26.2 ml/min Estimated GFR () 32.4 Estimated GFR (Non- 28.0 BUN/Creatinine Ratio 41.2 Random Glucose 207 mg/dl Calcium Level 9.1 mg/dl Magnesium Level 2.1 mg/dl Thyroid Stimulating Hormone (TSH) 3.360 uIu/ml Test 10/27/17 04:43 10/27/17 06:44 10/27/17 10:36 10/27/17 13:58 Urine Color DK YELLOW Urine Appearance CLEAR Urine pH 5.0 Urine Specific [place] 1.021 Urine Protein NEG Urine Glucose (UA) NEG Urine Ketones NEG Urine Occult Blood NEG Urine Nitrite NEG Urine Bilirubin NEG Urine Urobilinogen NEG Urine Leukocyte Esterase TRACE Urine WBC (Auto) 5-10 /hpf Urine RBC (Auto) 0-4 /hpf Urine Hyaline Casts (Auto) >30 /lpf Urine Epithelial Cells (Auto) 10-20 /lpf Urine Bacteria (Auto) NEG Urine Pathogenic Casts /lpf Urine Sperm (Auto) PRESENT Bedside Glucose 166 mg/dl 277 mg/dl Sodium Level 126 mmol/L Potassium Level 5.3 mmol/L Chloride Level 95 mmol/L Carbon Dioxide Level 21 mmol/L Anion Gap 11.0 mmol/L Blood Urea Nitrogen 91 mg/dl Creatinine 2.78 mg/dl Est Creatinine Clear Calc Drug Dose 21.0 ml/min Estimated GFR () 24.9 Estimated GFR (Non- 21.4 BUN/Creatinine Ratio 32.7 Random Glucose 272 mg/dl Calcium Level 9.4 mg/dl Assessment & Plan Sinusitis Mostly bacteria etiology Presented with nasal congestion, shortness of breath, mild hypoxia requiring 2L of O2 CXR showed bibasilar densities are nonspecific but favor atelectasis from the pleural effusion. Flu negative for influenza Lactic acid and procalcitonin wnl Blood cultures no growth Continue Rocephin + Azithro for now On flonase and nasal saline Congestion improved Clinically improved CAD s/p CABG Elevated Troponin Mild elevation in troponin seems to be a chronic elevation from previous lab Denies any chest pain Troponin trends down continue aspirin, statin, b-tea, Imdur Last echo in July 2017 showed EF of 20-25%, severe pulmonary HTN Continue monitor in telemetry Acute Kidney Injury superimposed on CKD stage 3 Creatinine on admission 2.1 baseline creatine between 1.4-1.5 Creatine today 2.2-->2.7 Possible related to hypovolemia Continue holding torsemide Entresto on hold Nephrology on board Continue discussed with Dr. Sy nephrology recommend to start on NS@ 50cc/hr Monitor closely for fluid overload Continue monitor BMP Avoid nephrotoxic agents Severe Ischemic Cardiomyopathy Severe LV Dysfunction s/p biventricular pacer with recent pacer check Continue to hold diuretic and entresto If develops SOB, will give a low dose of lasix and stop the IVF Check digoxin level Last echo on 07/17 Interpretation Summary The examination is adequate to evaluate the referral indication. Akinesis and thinning of the inferior, inferolateral, anterolateral and apical henriquez. Otherwise diffuse hypokinesis in the remaining segments. The left ventricular systolic function is severely reduced. Calculated LV ejection Fraction = 22% (biplane method of discs). The right ventricular cavity is severely dilated. The right ventricular systolic function is severely reduced . Mild aortic valve regurgitation is present. Moderate secondary mitral regurgitation is present. The mitral regurgitation is due to ischemic cardiomyopathy with tethering of the posterior mitral valve leaflet related to the wall motion abnormality. Moderate tricuspid regurgitation is present. Severe pulmonary hypertension is present. The left ventricular cavity is D shapped due to increased RV systolic pressure. Dilated IVC with reduced collapsability with sniff indicates an elevated right atrial pressure of 15mmHg. The estimated pulmonary artery systolic pressure is 73mm Hg. Compared to the prior study dated 06/13/2016, there has been no significant interval change. The right ventricular chamber dilatation and systolic function were present in 2016, but better demonstrated on the images obtained with the present study. L Ventricular Thrombus On Coumadin INR 3.3 Today Continue monitor INR Hyponatremia Na dropped to 126 Nephrology on board Recommended fluid restriction for now Will hold on IVF for now since pt has a low EF Continue monitor BMP Low Temp Possible related to low Na Need to r/o infectious etiology blood cx negative procalcitonin normal DM2 BS elevated Increase lantus to 10 unit insulin sliding scale Monitor BS Hypothyroidism continue Synthroid DVT ppx Coumadin FULL CODE Consultants: nephrology Current Inpatient Medications: Current Inpatient Medications Medications (Trade) Dose Ordered Sig/Fadi Route Start Time Stop Time Status Last Admin Dose Admin Ceftriaxone Sodium 1 gm/ Dextrose 50 ml @ 100 mls/hr Q24H IV 10/25/17 22:00 11/01/17 21:59 10/26/17 20:17 100 MLS/HR Azithromycin (Zithromax Tab) 250 mg QAM PO 10/25/17 09:00 11/01/17 08:59 10/27/17 07:39 250 MG Aspirin (Ecotrin Tab) 81 mg DAILY PO 10/25/17 09:00 11/24/17 08:59 10/27/17 07:39 81 MG Atorvastatin Calcium (Lipitor Tab) 40 mg DAILY PO 10/25/17 09:00 11/24/17 08:59 10/27/17 07:39 40 MG Digoxin (Lanoxin Tab) 0.125 mg DAILY@1600 PO 10/25/17 16:00 11/24/17 15:59 10/26/17 17:01 0.125 MG Gabapentin (Neurontin Cap) 100 mg TID PO 10/25/17 09:00 11/24/17 08:59 10/27/17 14:00 100 MG Isosorbide Mononitrate (Imdur Ext Rel Tab) 15 mg QAM PO 10/25/17 09:00 11/24/17 08:59 10/27/17 07:38 15 MG Metoprolol Succinate (Toprol Xl Tab) 50 mg DAILY PO 10/25/17 09:00 11/24/17 08:59 10/27/17 07:39 50 MG Nitroglycerin (Nitrostat Tab) 0.4 mg UD PRN SL 10/24/17 23:45 11/23/17 23:44 Sacubitril/ Valsartan (Entresto 24-26 Mg) 1 tab BID PO 10/25/17 09:00 11/24/17 08:59 Future Hold 10/26/17 20:16 1 TAB Warfarin Sodium (Coumadin Tab) 5 mg DAILY@1600 PO 10/25/17 16:00 11/24/17 15:59 10/26/17 17:03 5 MG Insulin Glargine (Lantus Solostar Pen) 5 units Q12 SC 10/25/17 02:00 11/24/17 01:59 10/27/17 07:41 5 UNITS Insulin Aspart (novoLOG ASPART) SLIDING SCALE If C... ACHS MD 10/25/17 02:00 11/24/17 01:59 10/27/17 12:28 9 UNITS Glucose (Glucose 40% Gel) 15-30 GRAMS 15 GRAMS... UD PRN PO 10/24/17 23:45 11/23/17 23:44 Glucose (Glucose Chew Tab) 4-8 Tablets 4 Tabl... UD PRN PO 10/24/17 23:45 11/23/17 23:44 Dextrose (Dextrose 50% 50ML Syringe) 25-50ML OF 50% DW IV FOR... UD PRN IV 10/24/17 23:45 11/23/17 23:44 Glucagon (Glucagon Inj) 1 mg UD PRN SQ 10/24/17 23:45 11/23/17 23:44 Acetaminophen (Tylenol Tab) 650 mg Q4H PRN PO 10/25/17 01:30 11/24/17 01:29 Levothyroxine Sodium (Synthroid Tab) 175 mcg DAILYBB PO 10/25/17 06:00 11/24/17 05:59 10/27/17 04:51 175 MCG Fluticasone Propionate (Flonase Nasal [place]) 2 sprays DAILY NA 10/26/17 09:00 11/25/17 08:59 10/27/17 07:40 2 SPRAYS Sodium Chloride ([place] Nasal [place]) 2 sprays Q6 NA 10/25/17 12:00 11/24/17 11:59 10/27/17 04:50 2 SPRAYS Prednisone (PredniSONE TAB) 20 mg DAILY PO 10/27/17 09:00 11/01/17 08:59 10/27/17 07:39 20 MG
[2017-10-27] MEDS: WARFARIN SOD 5 MG TAB PO SCH (15:51)
[2017-10-27] MEDS: DIGOXIN 0.125 MG TAB PO SCH (15:51)
[2017-10-27] MEDS: SODIUM CHLORIDE 0.9% 1000ML 1,000 ML IV SCH (15:53)
[2017-10-27] MEDS: CEFTRIAXONE SOD INJ 1 GM in DEXTROSE 5% ADD-VANTAGE 50ML 50 ML IV SCH (22:29)
[2017-10-28] VITALS (10 sets, daily range): BP systolic 101–108; BP diastolic 52–70; PULSE 62–65; TEMP 34.4–36.4; O2SAT 92–98; BMI 26.6
[2017-10-28] MEDS: SODIUM CHLORIDE 0.65% NA SOLN 45 ML (OCEAN) SCH ×4 (00:05→18:09)
[2017-10-28 00:38] LABS: COMPLETE YES; HEMATOCRIT 43.3 % (42-52); IG% 0.3 %; LYMPH % 7.4 %; LYMPH ABS # 0.54 K/uL (1.2-3.4); MEAN CELL VOLUME 97.1 fL (80-100); MEAN CORPUSCULAR HEMOGLOBIN 32.1 pg (25-34); MEAN PLATELET VOLUME 11.2 fL (7.4-10.4); MONO % 6.9 %; NEUT % 85.4 %; PLATELET COUNT 186 K/uL (130-400); RED BLOOD COUNT 4.46 M/uL (4.7-6.1); WHITE BLOOD COUNT 7.26 K/uL (4.8-10.8)
[2017-10-28 00:52] LABS: PROTHROMBIN TIME (PATIENT) 50.5 SECONDS (9.0-12.0)
[2017-10-28 00:56] LABS: INR 4.4 (0.9-1.1)
[2017-10-28 01:07] LABS: BUN/CREATININE RATIO 40.4 (10-20); CALCIUM 8.8 mg/dl (8.5-10.1); CREATININE 2.5 mg/dl (0.60-1.40); POTASSIUM 5.5 mmol/L (3.5-5.1)
[2017-10-28] MEDS ORDERED: PROCHLORPERAZINE INJ 5 MG in SYRINGE 4 ML IV PRN (05:00)
[2017-10-28] MEDS: LEVOTHYROXINE 175 MCG TAB PO SCH (05:52)
[2017-10-28 07:12] LABS: BUN/CREATININE RATIO 39.7 (10-20); CALCIUM 8.8 mg/dl (8.5-10.1); CREATININE 2.61 mg/dl (0.60-1.40); POTASSIUM 5.1 mmol/L (3.5-5.1)
[2017-10-28 07:30] LABS: ESTIMATED AVERAGE GLUCOSE 212 mg/dl; HA1C FLAG Normal (Normal)
[2017-10-28] MEDS: GABAPENTIN 100 MG CAP PO SCH ×3 (07:49→21:18)
[2017-10-28] MEDS: FLUTICASONE PROPIONATE NA SPR 16 GM BTL SCH (07:50)
[2017-10-28] MEDS: METOPROLOL SUCC 50MG EXT REL TAB PO SCH (07:50)
[2017-10-28] MEDS: AZITHROMYCIN 250 MG TAB PO SCH (07:50)
[2017-10-28] MEDS: ATORVASTATIN 40 MG TAB PO SCH (07:51)
[2017-10-28] MEDS: ISOSORBIDE MONONITRATE 30 MG TABCR PO SCH (07:51)
[2017-10-28] MEDS: ASPIRIN 81 MG ECTAB PO SCH (07:51)
[2017-10-28] MEDS: INSULIN ASPART 100 UNITS/ML 3 ML PEN SC SCH ×4 (07:54→21:22)
[2017-10-28] MEDS: INSULIN GLARGINE SOLOSTAR 100 UNITS/ML 3 ML PEN SC SCH ×2 (07:55→21:23)
--- NOTE | 2017-10-28 08:30 | Nephrology Progress Note ---
Nephrology Progress Note Date of Service: Oct 28, 2017. Subjective 76 yo male seen for marleny and hyponatremia in the setting of significant uri/ sinus congestion. started on low rate of iv fluids last night. no signs of sob. no edema. pt breathing easier and less nasal congestion. Objective Date Time Temp Pulse Resp B/P (MAP) Pulse Ox O2 Delivery O2 Flow Rate FiO2 10/28/17 07:22 62 18 101/52 (68) 94 2.0 10/28/17 06:50 34.4 10/28/17 03:40 65 16 105/67 (80) 98 Room Air 10/28/17 03:15 Room Air 10/28/17 00:00 Room Air 10/27/17 23:45 61 18 103/65 (78) 96 Room Air 10/27/17 20:00 Room Air 10/27/17 19:38 65 16 117/77 (90) 99 Room Air 10/27/17 16:00 Room Air 10/27/17 15:56 36.4 60 16 100/55 (70) 95 Room Air 10/27/17 15:51 70 10/27/17 12:51 34.1 10/27/17 12:00 Room Air 10/27/17 11:29 70 20 115/75 (88) 98 Room Air Physical Exam: General-aaox3 Eyes-no scleral icterus ENT-mmm Neck-supple Lungs-cta Heart-2/6 systolic murmur Abdomen-bs+ s/nt/nd Extremities-no c/c/e Neuro-nonfocal Current Inpatient Medications Medications (Trade) Dose Ordered Sig/Fadi Route Start Time Stop Time Status Last Admin Dose Admin Ceftriaxone Sodium 1 gm/ Dextrose 50 ml @ 100 mls/hr Q24H IV 10/25/17 22:00 11/01/17 21:59 10/27/17 22:29 100 MLS/HR Azithromycin (Zithromax Tab) 250 mg QAM PO 10/25/17 09:00 11/01/17 08:59 10/28/17 07:50 250 MG Aspirin (Ecotrin Tab) 81 mg DAILY PO 10/25/17 09:00 11/24/17 08:59 10/28/17 07:51 81 MG Atorvastatin Calcium (Lipitor Tab) 40 mg DAILY PO 10/25/17 09:00 11/24/17 08:59 10/28/17 07:51 40 MG Digoxin (Lanoxin Tab) 0.125 mg DAILY@1600 PO 10/25/17 16:00 11/24/17 15:59 10/27/17 15:51 0.125 MG Gabapentin (Neurontin Cap) 100 mg TID PO 10/25/17 09:00 11/24/17 08:59 10/28/17 07:49 100 MG Isosorbide Mononitrate (Imdur Ext Rel Tab) 15 mg QAM PO 10/25/17 09:00 11/24/17 08:59 10/28/17 07:51 15 MG Metoprolol Succinate (Toprol Xl Tab) 50 mg DAILY PO 10/25/17 09:00 11/24/17 08:59 10/28/17 07:50 50 MG Nitroglycerin (Nitrostat Tab) 0.4 mg UD PRN SL 10/24/17 23:45 11/23/17 23:44 Sacubitril/ Valsartan (Entresto 24-26 Mg) 1 tab BID PO 10/25/17 09:00 11/24/17 08:59 Future Hold 10/26/17 20:16 1 TAB Warfarin Sodium (Coumadin Tab) 5 mg DAILY@1600 PO 10/25/17 16:00 11/24/17 15:59 10/27/17 15:51 5 MG Insulin Aspart (novoLOG ASPART) SLIDING SCALE If C... ACHS SC 10/25/17 02:00 11/24/17 01:59 10/28/17 07:54 1 UNITS Glucose (Glucose 40% Gel) 15-30 GRAMS 15 GRAMS... UD PRN PO 10/24/17 23:45 11/23/17 23:44 Glucose (Glucose Chew Tab) 4-8 Tablets 4 Tabl... UD PRN PO 10/24/17 23:45 11/23/17 23:44 Dextrose (Dextrose 50% 50ML Syringe) 25-50ML OF 50% DW IV FOR... UD PRN IV 10/24/17 23:45 11/23/17 23:44 Glucagon (Glucagon Inj) 1 mg UD PRN SQ 10/24/17 23:45 11/23/17 23:44 Acetaminophen (Tylenol Tab) 650 mg Q4H PRN PO 10/25/17 01:30 11/24/17 01:29 Levothyroxine Sodium (Synthroid Tab) 175 mcg DAILYBB PO 10/25/17 06:00 11/24/17 05:59 10/28/17 05:52 175 MCG Fluticasone Propionate (Flonase Nasal [place]) 2 sprays DAILY NA 10/26/17 09:00 11/25/17 08:59 10/28/17 07:50 2 SPRAYS Sodium Chloride ([place] Nasal [place]) 2 sprays Q6 NA 10/25/17 12:00 11/24/17 11:59 10/28/17 05:51 2 SPRAYS Prednisone (PredniSONE TAB) 20 mg DAILY PO 10/27/17 09:00 11/01/17 08:59 10/28/17 07:51 20 MG Insulin Glargine (Lantus Solostar Pen) 10 units Q12 SC 10/27/17 21:00 11/24/17 01:59 10/28/17 07:55 10 UNITS Sodium Chloride 1,000 ml @ 50 mls/hr Q20H IV 10/27/17 16:00 11/26/17 15:59 10/27/17 15:53 50 MLS/HR Prochlorperazine Edisylate 5 mg/ Syringe 5 ml @ 5 mls/min Q6H PRN IV 10/28/17 05:00 11/27/17 04:59 Last 24 Hours Test 10/27/17 10:36 10/27/17 13:58 10/27/17 16:17 10/27/17 19:50 Bedside Glucose 277 mg/dl 281 mg/dl 283 mg/dl Sodium Level 126 mmol/L Potassium Level 5.3 mmol/L Chloride Level 95 mmol/L Carbon Dioxide Level 21 mmol/L Anion Gap 11.0 mmol/L Blood Urea Nitrogen 91 mg/dl Creatinine 2.78 mg/dl Est Creatinine Clear Calc Drug Dose 21.0 ml/min Estimated GFR () 24.9 Estimated GFR (Non- 21.4 BUN/Creatinine Ratio 32.7 Random Glucose 272 mg/dl Calcium Level 9.4 mg/dl Test 10/28/17 00:23 10/28/17 03:14 10/28/17 06:00 10/28/17 06:17 White Blood Count 7.26 K/uL Red Blood Count 4.46 M/uL Hemoglobin 14.3 g/dL Hematocrit 43.3 % Mean Corpuscular Volume 97.1 fL Mean Corpuscular Hemoglobin 32.1 pg Mean Corpuscular Hemoglobin Concent 33.0 g/dl Platelet Count 186 K/uL Mean Platelet Volume 11.2 fL Neutrophils (%) (Auto) 85.4 % Lymphocytes (%) (Auto) 7.4 % Monocytes (%) (Auto) 6.9 % Eosinophils (%) (Auto) 0.0 % Basophils (%) (Auto) 0.0 % Neutrophils # (Auto) 6.20 K/uL Lymphocytes # (Auto) 0.54 K/uL Monocytes # (Auto) 0.50 K/uL Eosinophils # (Auto) 0.00 K/uL Basophils # (Auto) 0.00 K/uL RDW Standard Deviation 60.8 fL RDW Coefficient of Variation 17.3 % Immature Granulocyte % (Auto) 0.3 % Immature Granulocyte # (Auto) 0.02 K/uL Prothrombin Time 50.5 SECONDS Prothromb Time International Ratio 4.4 Sodium Level 129 mmol/L 128 mmol/L Potassium Level 5.5 mmol/L 5.1 mmol/L Chloride Level 96 mmol/L 98 mmol/L Carbon Dioxide Level 22 mmol/L 19 mmol/L Anion Gap 11.0 mmol/L 11.0 mmol/L Blood Urea Nitrogen 101 mg/dl 104 mg/dl Creatinine 2.50 mg/dl 2.61 mg/dl Est Creatinine Clear Calc Drug Dose 23.4 ml/min 22.4 ml/min Estimated GFR () 28.3 26.8 Estimated GFR (Non- 24.4 23.1 BUN/Creatinine Ratio 40.4 39.7 Random Glucose 133 mg/dl 113 mg/dl Estimated Average Glucose 212 mg/dl Hemoglobin A1c 9.0 % Osmolality 307 mOsm/kg Calcium Level 8.8 mg/dl 8.8 mg/dl Digoxin Level 0.7 ng/ml Bedside Glucose 122 mg/dl Urine Osmolality 396 mOms/kg Test 10/28/17 06:51 Bedside Glucose 95 mg/dl Assessment & Plan [id number] likely from atn-should start to trend down with iv fluids- would like to raise the rate from 50 to 80cc/hr today. hyponatremia-likely from volume depletion-appears dry to me-will increase the rate of fluids to 80cc/hr and continue the free water restriction. sodium goal of above 130.
[2017-10-28] MEDS: SODIUM CHLORIDE 0.9% 1000ML 1,000 ML IV SCH (09:37)
[2017-10-28] MEDS: WARFARIN SOD 5 MG TAB PO SCH (15:13)
[2017-10-28] MEDS: DIGOXIN 0.125 MG TAB PO SCH (16:55)
--- NOTE | 2017-10-28 18:13 | Progress Note ---
Internal Med Progress Note Date of Service: Oct 28, 2017. Provider Documentation: SUBJECTIVE: offers no complain no fever or chills has mild sinus congestion , improved from prior OBJECTIVE: Vital Signs-as noted below Exam: General-no apparent distress, Eyes-sclera non icteric , PERRLA/EOMI ENT- Neck-trachea midline , no thyromegaly Lungs-no wheeze or rales Heart-regular S1/s2 Abdomen-soft, non tender Extremities-no lower ext edema Neuro-no focal deficit , AAO X3 Lab data as noted below. ASSESSMENT & PLAN: Sinusitis /URI Presented with nasal congestion, shortness of breath, mild hypoxia requiring 2L of O2 CXR showed bibasilar densities are nonspecific but favor atelectasis from the pleural effusion. Flu negative for influenza Lactic acid and procalcitonin wnl Blood cultures no growth Continue Rocephin + Azithro will transition to PO Levaquin -complete total 5 days course On flonase and nasal saline Congestion improved Clinically improved CAD s/p CABG Elevated Troponin Mild elevation in troponin seems to be a chronic elevation from previous lab/ YASIR on CKD stage 3 no complain of chest paiin Troponin trended down continue aspirin, statin, b-tea, Imdur Last echo in July 2017 showed EF of 20-25%, severe pulmonary HTN Continue monitor in telemetry Acute Kidney Injury superimposed on CKD stage 3 no oliguric /ATN , Cr improving gradually with IV hydration cont hold Torsemide , Entresto appreciate input form Nephrology Severe Ischemic Cardiomyopathy Severe LV Dysfunction s/p biventricular pacer with recent pacer check diuretic and entresto on hold for dehydration /YASIR cont Digoxin recent ECHO : Interpretation Summary Akinesis and thinning of the inferior, inferolateral, anterolateral and apical henriquez. Otherwise diffuse hypokinesis in the remaining segments. The left ventricular systolic function is severely reduced. Calculated LV ejection Fraction = 22% (biplane method of discs). Severe pulmonary hypertension is present. Dilated IVC with reduced collapsability with sniff indicates an elevated right atrial pressure of 15mmHg. The estimated pulmonary artery systolic pressure is 73mm Hg. L Ventricular Thrombus hold Coumadin for INR > 4 Continue monitor INR Hyponatremia due to dehydration Lasix kept on hold Nephrology on board-appreciate input pt is started on fili IV hydration NSS 80 ml /hr cont Free water restriction Na 128 today repeat PRP tomorrow ; Goal Na > 130 DM2 on basal Lantus insulin sliding scale Hypothyroidism continue Synthroid DVT PROPHYLAXIS : INR ELEVATED DISPOSITION: lives at home with was independent in ADL's prior to admission uses Walker as assisted device PT/OT consulted Medicine follow up with Dr Pearson Vital Signs: Date Time Temp Pulse Resp B/P (MAP) Pulse Ox O2 Delivery O2 Flow Rate FiO2 10/29/17 07:27 60 18 105/65 (78) 97 Room Air 10/29/17 04:00 93 Room Air 10/29/17 03:30 66 20 116/73 (87) 93 Room Air 10/29/17 00:40 35.6 10/29/17 00:00 68 129/77 (94) 97 Room Air 10/29/17 00:00 97 Room Air 10/28/17 20:00 95 Room Air 10/28/17 19:53 36.3 64 16 108/70 (83) 93 Room Air 10/28/17 17:39 36.4 10/28/17 16:55 60 10/28/17 16:00 93 Room Air 10/28/17 15:20 62 18 102/65 (77) 92 Room Air 10/28/17 13:37 36.3 10/28/17 12:00 Room Air 10/28/17 11:33 36.4 64 18 103/63 (76) 93 Room Air Lab Results: Results Past 24 Hours Test 10/28/17 11:05 10/28/17 16:47 10/28/17 20:06 10/29/17 06:21 Range/Units Bedside Glucose 168 214 308 70-99 mg/dl Prothrombin Time 76.9 9.0-12.0 SECONDS Prothromb Time International Ratio 6.6 0.9-1.1 Sodium Level 128 136-145 mmol/L Potassium Level 4.9 3.5-5.1 mmol/L Chloride Level 99 98-107 mmol/L Carbon Dioxide Level 18 21-32 mmol/L Anion Gap 11.0 3-11 mmol/L Blood Urea Nitrogen 115 7-18 mg/dl Creatinine 2.38 0.60-1.40 mg/dl Est Creatinine Clear Calc Drug Dose 24.6 ml/min Estimated GFR () 30.0 Estimated GFR (Non- 25.9 BUN/Creatinine Ratio 48.2 10-20 Random Glucose 141 70-99 mg/dl Calcium Level 8.8 8.5-10.1 mg/dl Test 10/29/17 06:51 Range/Units Bedside Glucose 123 70-99 mg/dl
[2017-10-28] MEDS: CEFTRIAXONE SOD INJ 1 GM in DEXTROSE 5% ADD-VANTAGE 50ML 50 ML IV SCH (21:17)
[2017-10-29] VITALS (11 sets, daily range): BP systolic 101–129; BP diastolic 63–77; PULSE 58–68; TEMP 35.6–36.3; O2SAT 92–99
[2017-10-29] MEDS: SODIUM CHLORIDE 0.65% NA SOLN 45 ML (OCEAN) SCH ×4 (00:09→17:20)
[2017-10-29] MEDS: LEVOTHYROXINE 175 MCG TAB PO SCH (06:01)
[2017-10-29 07:04] LABS: PROTHROMBIN TIME (PATIENT) 76.9 SECONDS (9.0-12.0)
[2017-10-29 07:18] LABS: BUN/CREATININE RATIO 48.2 (10-20); CALCIUM 8.8 mg/dl (8.5-10.1); CREATININE 2.38 mg/dl (0.60-1.40); POTASSIUM 4.9 mmol/L (3.5-5.1)
[2017-10-29 07:37] LABS: INR 6.6 (0.9-1.1)
[2017-10-29] MEDS: FLUTICASONE PROPIONATE NA SPR 16 GM BTL SCH (07:45)
[2017-10-29] MEDS: GABAPENTIN 100 MG CAP PO SCH ×3 (07:46→20:39)
[2017-10-29] MEDS: AZITHROMYCIN 250 MG TAB PO SCH (07:46)
[2017-10-29] MEDS: ATORVASTATIN 40 MG TAB PO SCH (07:47)
[2017-10-29] MEDS: METOPROLOL SUCC 50MG EXT REL TAB PO SCH (07:47)
[2017-10-29] MEDS: ISOSORBIDE MONONITRATE 30 MG TABCR PO SCH (07:47)
[2017-10-29] MEDS: INSULIN ASPART 100 UNITS/ML 3 ML PEN SC SCH ×4 (07:50→20:39)
[2017-10-29] MEDS: INSULIN GLARGINE SOLOSTAR 100 UNITS/ML 3 ML PEN SC SCH ×2 (07:50→20:40)
[2017-10-29] MEDS ORDERED: SODIUM CHLORIDE 0.9% 1000ML 1,000 ML IV SCH (08:45)
[2017-10-29] MEDS ORDERED: PHYTONADIONE 5 MG TAB PO ONE (08:45)
--- NOTE | 2017-10-29 08:50 | Nephrology Progress Note ---
Nephrology Progress Note Date of Service: Oct 29, 2017. Subjective 76 yo male seen for marleny and hyponatremia in the setting of significant uri/ sinus congestion. was on 80cc of normal saline. stopped last night. having some expiratory wheeze now although comfortable oob to chair and not requiring any oxygen. temperature was low and required guy hugger again. Objective Date Time Temp Pulse Resp B/P (MAP) Pulse Ox O2 Delivery O2 Flow Rate FiO2 10/29/17 08:00 97 Room Air 2.0 10/29/17 07:27 60 18 105/65 (78) 97 Room Air 10/29/17 04:00 93 Room Air 10/29/17 03:30 66 20 116/73 (87) 93 Room Air 10/29/17 00:40 35.6 10/29/17 00:00 68 129/77 (94) 97 Room Air 10/29/17 00:00 97 Room Air 10/28/17 20:00 95 Room Air 10/28/17 19:53 36.3 64 16 108/70 (83) 93 Room Air 10/28/17 17:39 36.4 10/28/17 16:55 60 10/28/17 16:00 93 Room Air 10/28/17 15:20 62 18 102/65 (77) 92 Room Air 10/28/17 13:37 36.3 10/28/17 12:00 Room Air 10/28/17 11:33 36.4 64 18 103/63 (76) 93 Room Air Physical Exam: General-aaox3 Eyes-no scleral icterus ENT-mmm Neck-supple Lungs-+wheeze and rales at bases Heart-2/6 systolic murmur Abdomen-bs+ s/nt/nd Extremities-no c/c/e Neuro-nonfocal Current Inpatient Medications Medications (Trade) Dose Ordered Sig/Fadi Route Start Time Stop Time Status Last Admin Dose Admin Aspirin (Ecotrin Tab) 81 mg DAILY PO 10/25/17 09:00 11/24/17 08:59 Future Hold 10/28/17 07:51 81 MG Atorvastatin Calcium (Lipitor Tab) 40 mg DAILY PO 10/25/17 09:00 11/24/17 08:59 10/29/17 07:47 40 MG Digoxin (Lanoxin Tab) 0.125 mg DAILY@1600 PO 10/25/17 16:00 11/24/17 15:59 10/28/17 16:55 0.125 MG Gabapentin (Neurontin Cap) 100 mg TID PO 10/25/17 09:00 11/24/17 08:59 10/29/17 07:46 100 MG Isosorbide Mononitrate (Imdur Ext Rel Tab) 15 mg QAM PO 10/25/17 09:00 11/24/17 08:59 10/29/17 07:47 15 MG Metoprolol Succinate (Toprol Xl Tab) 50 mg DAILY PO 10/25/17 09:00 11/24/17 08:59 10/29/17 07:47 50 MG Nitroglycerin (Nitrostat Tab) 0.4 mg UD PRN SL 10/24/17 23:45 11/23/17 23:44 Sacubitril/ Valsartan (Entresto 24-26 Mg) 1 tab BID PO 10/25/17 09:00 11/24/17 08:59 Future Hold 10/26/17 20:16 1 TAB Warfarin Sodium (Coumadin Tab) 5 mg DAILY@1600 PO 10/25/17 16:00 11/24/17 15:59 Future Hold 10/27/17 15:51 5 MG Insulin Aspart (novoLOG ASPART) SLIDING SCALE If C... ACHS SC 10/25/17 02:00 11/24/17 01:59 10/29/17 07:50 5 UNITS Glucose (Glucose 40% Gel) 15-30 GRAMS 15 GRAMS... UD PRN PO 10/24/17 23:45 11/23/17 23:44 Glucose (Glucose Chew Tab) 4-8 Tablets 4 Tabl... UD PRN PO 10/24/17 23:45 11/23/17 23:44 Dextrose (Dextrose 50% 50ML Syringe) 25-50ML OF 50% DW IV FOR... UD PRN IV 10/24/17 23:45 11/23/17 23:44 Glucagon (Glucagon Inj) 1 mg UD PRN SQ 10/24/17 23:45 11/23/17 23:44 Acetaminophen (Tylenol Tab) 650 mg Q4H PRN PO 10/25/17 01:30 11/24/17 01:29 Levothyroxine Sodium (Synthroid Tab) 175 mcg DAILYBB PO 10/25/17 06:00 11/24/17 05:59 10/29/17 06:01 175 MCG Fluticasone Propionate (Flonase Nasal [place]) 2 sprays DAILY NA 10/26/17 09:00 11/25/17 08:59 10/29/17 07:45 2 SPRAYS Sodium Chloride ([place] Nasal [place]) 2 sprays Q6 NA 10/25/17 12:00 11/24/17 11:59 10/29/17 06:02 2 SPRAYS Prednisone (PredniSONE TAB) 20 mg DAILY PO 10/27/17 09:00 11/01/17 08:59 10/29/17 07:47 20 MG Insulin Glargine (Lantus Solostar Pen) 10 units Q12 SC 10/27/17 21:00 11/24/17 01:59 10/29/17 07:50 10 UNITS Prochlorperazine Edisylate 5 mg/ Syringe 5 ml @ 5 mls/min Q6H PRN IV 10/28/17 05:00 11/27/17 04:59 Doxycycline Hyclate (Vibramycin Cap) 100 mg BID PO 10/29/17 09:00 11/05/17 08:59 Sodium Chloride 1,000 ml @ 80 mls/hr [id number] IV 10/29/17 08:45 11/28/17 08:44 UNV Last 24 Hours Test 10/28/17 11:05 10/28/17 16:47 10/28/17 20:06 10/29/17 06:21 Bedside Glucose 168 mg/dl 214 mg/dl 308 mg/dl Prothrombin Time 76.9 SECONDS Prothromb Time International Ratio 6.6 Sodium Level 128 mmol/L Potassium Level 4.9 mmol/L Chloride Level 99 mmol/L Carbon Dioxide Level 18 mmol/L Anion Gap 11.0 mmol/L Blood Urea Nitrogen 115 mg/dl Creatinine 2.38 mg/dl Est Creatinine Clear Calc Drug Dose 24.6 ml/min Estimated GFR () 30.0 Estimated GFR (Non- 25.9 BUN/Creatinine Ratio 48.2 Random Glucose 141 mg/dl Calcium Level 8.8 mg/dl Test 10/29/17 06:51 Bedside Glucose 123 mg/dl Assessment & Plan [id number] likely from atn-slowly improving with hydration although appears to not tolerate aggressive fluids and needed to stop them. hyponatremia-sodium of 128 and currently on free water restriction. was also giving normal saline since felt he was intravascularly dry however not tolerating fluids well and fluids have been stopped. for now, just do fluid restriction.
[2017-10-29] MEDS: DOXYCYCLINE HYCLATE 100 MG CAP PO SCH ×2 (09:15→20:38)
--- NOTE | 2017-10-29 13:49 | Progress Note ---
Internal Med Progress Note Date of Service: Oct 29, 2017. Provider Documentation: SUBJECTIVE: found to be hypothermic , pt denies of any symptoms , sitting up on chair , has mild sinus congestion no chills or rigor , awake and alert , conversing wants the warming blanket to be removed as it is too warm repeat Temp 34.6 vital remains stable OBJECTIVE: Vital Signs-as noted below Exam: General-no apparent distress, awake and alert, conversing Eyes-sclera non icteric , PERRLA/EOMI ENT- Neck-trachea midline , no thyromegaly Lungs-no wheeze or rales Heart-regular S1/s2 Abdomen-soft, non tender Extremities-no lower ext edema , extremities warm , no cyanosis noted Neuro-no focal deficit , AAO X3 Lab data as noted below. ASSESSMENT & PLAN: LOW TEMP /HYPOTHERMIA ; not sure of the cause pt remains asymptomatic , no evidence of sepsis BP stable no evidence of CVA was put on warming blanket earlier , was removed as pt complains of being too warm blood cultures on admission was negative TSH level wnl Sinusitis /URI symptom has improved Presented with nasal congestion, shortness of breath, mild hypoxia requiring 2L of O2 CXR showed bibasilar densities are nonspecific but favor atelectasis from the pleural effusion. Flu negative for influenza Lactic acid and procalcitonin wnl Blood cultures no growth PO abx with Doxycycline ( avoid Levaquin -may cause worsening of coagulopathy due to drug interaction On flonase and nasal saline Congestion improved Clinically improved CAD s/p CABG Elevated Troponin Mild elevation in troponin seems to be a chronic elevation from previous lab/ YASIR on CKD stage 3 no complain of chest pain Troponin trended down continue aspirin, statin, b-tea, Imdur Last echo in July 2017 showed EF of 20-25%, severe pulmonary HTN Continue monitor in telemetry Acute Kidney Injury superimposed on CKD stage 3 no oliguric /ATN , Cr improving gradually with IV hydration cont hold Torsemide , Entresto appreciate input form Nephrology Severe Ischemic Cardiomyopathy Severe LV Dysfunction s/p biventricular pacer with recent pacer check diuretic and entresto on hold for dehydration /YASIR cont Digoxin recent ECHO : Interpretation Summary Akinesis and thinning of the inferior, inferolateral, anterolateral and apical henriquez. Otherwise diffuse hypokinesis in the remaining segments. The left ventricular systolic function is severely reduced. Calculated LV ejection Fraction = 22% (biplane method of discs). Severe pulmonary hypertension is present. Dilated IVC with reduced collapsibility with sniff indicates an elevated right atrial pressure of 15mmHg. The estimated pulmonary artery systolic pressure is 73mm Hg. L Ventricular Thrombus hold Coumadin for INR 4-> 6 no evidence of bleeding , concern for possible Drug interaction causing coagulopathy Abx will be changed to Doxycycline Continue monitor INR Hyponatremia chronic and persistent Lasix kept on hold Nephrology on board-appreciate input cont Free water restriction DM2 on basal Lantus insulin sliding scale Hypothyroidism continue Synthroid DVT PROPHYLAXIS : INR ELEVATED DISPOSITION: lives at home with was independent in ADL's prior to admission uses Walker as assisted device PT/OT consulted Medicine follow up with Dr Pearson Vital Signs: Date Time Temp Pulse Resp B/P (MAP) Pulse Ox O2 Delivery O2 Flow Rate FiO2 10/30/17 20:00 94 Room Air 10/30/17 19:52 70 18 122/74 (90) 94 Room Air 10/30/17 17:00 36.3 10/30/17 16:08 62 18 107/72 (84) 98 Nasal Cannula 2.0 10/30/17 16:04 68 10/30/17 16:00 95 Room Air 10/30/17 12:32 35.3 67 16 130/63 (85) 95 10/30/17 12:00 Room Air 10/30/17 09:00 35.2 10/30/17 08:16 35.3 69 18 121/64 (83) 97 10/30/17 08:00 Room Air 10/30/17 04:00 96 Room Air 10/30/17 03:48 35.8 62 18 116/77 (90) 95 Room Air 10/30/17 00:00 94 Room Air 10/29/17 23:38 66 18 118/76 (90) 92 Room Air Lab Results: Results Past 24 Hours Test 10/30/17 05:18 10/30/17 06:48 10/30/17 11:39 10/30/17 16:12 Range/Units Prothrombin Time 30.7 9.0-12.0 SECONDS Prothromb Time International Ratio 2.8 0.9-1.1 Sodium Level 128 136-145 mmol/L Potassium Level 5.0 3.5-5.1 mmol/L Chloride Level 99 98-107 mmol/L Carbon Dioxide Level 18 21-32 mmol/L Anion Gap 11.0 3-11 mmol/L Blood Urea Nitrogen 123 7-18 mg/dl Creatinine 2.80 0.60-1.40 mg/dl Est Creatinine Clear Calc Drug Dose 20.9 ml/min Estimated GFR () 24.6 Estimated GFR (Non- 21.3 BUN/Creatinine Ratio 43.9 10-20 Random Glucose 279 70-99 mg/dl Calcium Level 9.1 8.5-10.1 mg/dl Bedside Glucose 233 235 274 70-99 mg/dl Test 10/30/17 17:35 10/30/17 20:30 Range/Units Erythrocyte Sedimentation Rate 47 0-14 mm/hr Random Cortisol 23.85 mcg/dl Bedside Glucose 266 70-99 mg/dl
[2017-10-29] MEDS: DIGOXIN 0.125 MG TAB PO SCH (16:09)
[2017-10-30] VITALS (13 sets, daily range): BP systolic 105–130; BP diastolic 63–77; PULSE 61–70; TEMP 34.7–36.4; O2SAT 94–98
[2017-10-30] MEDS: SODIUM CHLORIDE 0.65% NA SOLN 45 ML (OCEAN) SCH ×5 (00:35→23:25)
[2017-10-30 05:55] LABS: INR 2.8 (0.9-1.1); PROTHROMBIN TIME (PATIENT) 30.7 SECONDS (9.0-12.0)
[2017-10-30] MEDS: LEVOTHYROXINE 175 MCG TAB PO SCH (06:05)
[2017-10-30 06:13] LABS: BUN/CREATININE RATIO 43.9 (10-20); CALCIUM 9.1 mg/dl (8.5-10.1); CREATININE 2.8 mg/dl (0.60-1.40)
[2017-10-30] MEDS: ISOSORBIDE MONONITRATE 30 MG TABCR PO SCH (08:07)
[2017-10-30] MEDS: DOXYCYCLINE HYCLATE 100 MG CAP PO SCH ×2 (08:07→20:56)
[2017-10-30] MEDS: METOPROLOL SUCC 50MG EXT REL TAB PO SCH (08:07)
[2017-10-30] MEDS: ATORVASTATIN 40 MG TAB PO SCH (08:08)
[2017-10-30] MEDS: GABAPENTIN 100 MG CAP PO SCH ×3 (08:08→20:56)
[2017-10-30] MEDS: FLUTICASONE PROPIONATE NA SPR 16 GM BTL SCH (08:08)
[2017-10-30] MEDS: INSULIN ASPART 100 UNITS/ML 3 ML PEN SC SCH ×4 (08:12→20:59)
[2017-10-30] MEDS: INSULIN GLARGINE SOLOSTAR 100 UNITS/ML 3 ML PEN SC SCH ×2 (08:13→21:00)
--- NOTE | 2017-10-30 09:56 | DIAGNOSTIC IMAGING REPORT ---
SINGLE VIEW CHEST CLINICAL HISTORY: Dyspnea. Abnormal breath sounds on physical examination. FINDINGS: An AP, portable, upright chest radiograph is compared to study dated 10/24/2017. The examination is degraded by portable technique and patient rotation. A 3-lead cardiac AICD is unchanged in position and partially obscures the left mid chest. The patient is status post midline sternotomy. The heart is enlarged and there is atherosclerotic calcification of the thoracic aorta. The pulmonary vasculature is noncongested. There are layering pleural effusions with bibasilar consolidation. No pneumothorax is seen. The skeletal structures are osteopenic. Degenerative changes are seen throughout the thoracic spine. IMPRESSION: 1. Cardiomegaly and AICD. There is no convincing radiographic evidence of congestive failure. 2. Layering pleural effusions and bibasilar consolidation. This likely represents atelectasis. Clinical correlation will be required. Electronically signed by: Chester Das M.D. 10/30/2017 9:55 AM Dictated Date/Time: 10/30/2017 9:53 AM
--- NOTE | 2017-10-30 10:36 | DIAGNOSTIC IMAGING REPORT ---
(RENAL)RETROPERITON COMP CLINICAL HISTORY: 76 years-old Male presenting with marleny, creatinine continues to worsen. TECHNIQUE: Real-time grayscale and limited color Doppler ultrasound imaging of the kidneys and bladder was performed. COMPARISON: None. FINDINGS: Right kidney: Normal echogenicity. Right kidney measures 10.3 cm. No hydronephrosis. No convincing evidence of calculus or mass. Normal perfusion. Left kidney: Normal echogenicity. Left kidney measures 10.4 cm. No hydronephrosis. No convincing evidence of calculus or mass. Normal perfusion. Bladder: Incompletely distended limiting evaluation. Other: Bilateral pleural effusions and trace perihepatic ascites. IMPRESSION: 1. Normal renal ultrasound. No obstruction. 2. Bilateral pleural effusions and trace perihepatic ascites. Electronically signed by: Vinh Talavera M.D. 10/30/2017 10:35 AM Dictated Date/Time: 10/30/2017 10:34 AM
--- NOTE | 2017-10-30 15:16 | Nephrology Progress Note ---
Nephrology Progress Note Date of Service: Oct 30, 2017. Subjective 76 yo male seen for marleny and hyponatremia in the setting of significant uri/ sinus congestion. was on 80cc of normal saline. stopped 10/28/17. Patient was examined and interviewed while seated in the waiting area. He reports getting SOB with walking long distances but was able to ambulate with walker out to the waiting room without issue. continues to have issues with low temperature. states that he can feel tightness and fluid in his thighs and when he breathes deeply. continues to be on antibiotics. Objective Date Time Temp Pulse Resp B/P (MAP) Pulse Ox O2 Delivery O2 Flow Rate FiO2 10/30/17 12:32 35.3 67 16 130/63 (85) 95 10/30/17 12:00 Room Air 10/30/17 09:00 35.2 10/30/17 08:16 35.3 69 18 121/64 (83) 97 10/30/17 08:00 Room Air 10/30/17 04:00 96 Room Air 10/30/17 03:48 35.8 62 18 116/77 (90) 95 Room Air 10/30/17 00:00 94 Room Air 10/29/17 23:38 66 18 118/76 (90) 92 Room Air 10/29/17 20:35 36.3 58 16 104/63 (77) 99 Room Air 10/29/17 20:00 Room Air 10/29/17 16:09 65 10/29/17 16:00 Room Air 10/29/17 15:15 64 18 112/70 (84) 98 Room Air Physical Exam: General-aaox3 Eyes-no scleral icterus ENT-mmm Neck-supple Lungs-+slight rales at bases Heart-2/6 systolic murmur Abdomen-bs+ s/nt/nd Extremities-no c/c/e Neuro-nonfocal Current Inpatient Medications Medications (Trade) Dose Ordered Sig/Fadi Route Start Time Stop Time Status Last Admin Dose Admin Aspirin (Ecotrin Tab) 81 mg DAILY PO 10/25/17 09:00 11/24/17 08:59 Future Hold 10/28/17 07:51 81 MG Atorvastatin Calcium (Lipitor Tab) 40 mg DAILY PO 10/25/17 09:00 11/24/17 08:59 10/30/17 08:08 40 MG Digoxin (Lanoxin Tab) 0.125 mg DAILY@1600 PO 10/25/17 16:00 11/24/17 15:59 10/29/17 16:09 0.125 MG Gabapentin (Neurontin Cap) 100 mg TID PO 10/25/17 09:00 11/24/17 08:59 10/30/17 13:44 100 MG Isosorbide Mononitrate (Imdur Ext Rel Tab) 15 mg QAM PO 10/25/17 09:00 11/24/17 08:59 10/30/17 08:07 15 MG Metoprolol Succinate (Toprol Xl Tab) 50 mg DAILY PO 10/25/17 09:00 11/24/17 08:59 10/30/17 08:07 50 MG Nitroglycerin (Nitrostat Tab) 0.4 mg UD PRN SL 10/24/17 23:45 11/23/17 23:44 Sacubitril/ Valsartan (Entresto 24-26 Mg) 1 tab BID PO 10/25/17 09:00 11/24/17 08:59 Future Hold 10/26/17 20:16 1 TAB Warfarin Sodium (Coumadin Tab) 5 mg DAILY@1600 PO 10/25/17 16:00 11/24/17 15:59 Future Hold 10/27/17 15:51 5 MG Insulin Aspart (novoLOG ASPART) SLIDING SCALE If C... ACHS SC 10/25/17 02:00 11/24/17 01:59 10/30/17 12:44 6 UNITS Glucose (Glucose 40% Gel) 15-30 GRAMS 15 GRAMS... UD PRN PO 10/24/17 23:45 11/23/17 23:44 Glucose (Glucose Chew Tab) 4-8 Tablets 4 Tabl... UD PRN PO 10/24/17 23:45 11/23/17 23:44 Dextrose (Dextrose 50% 50ML Syringe) 25-50ML OF 50% DW IV FOR... UD PRN IV 10/24/17 23:45 11/23/17 23:44 Glucagon (Glucagon Inj) 1 mg UD PRN SQ 10/24/17 23:45 11/23/17 23:44 Acetaminophen (Tylenol Tab) 650 mg Q4H PRN PO 10/25/17 01:30 11/24/17 01:29 Levothyroxine Sodium (Synthroid Tab) 175 mcg DAILYBB PO 10/25/17 06:00 11/24/17 05:59 10/30/17 06:05 175 MCG Fluticasone Propionate (Flonase Nasal [place]) 2 sprays DAILY NA 10/26/17 09:00 11/25/17 08:59 10/30/17 08:08 2 SPRAYS Sodium Chloride ([place] Nasal [place]) 2 sprays Q6 NA 10/25/17 12:00 11/24/17 11:59 10/30/17 06:05 2 SPRAYS Prednisone (PredniSONE TAB) 20 mg DAILY PO 10/27/17 09:00 11/01/17 08:59 10/30/17 08:07 20 MG Insulin Glargine (Lantus Solostar Pen) 10 units Q12 SC 10/27/17 21:00 11/24/17 01:59 10/30/17 08:13 10 UNITS Prochlorperazine Edisylate 5 mg/ Syringe 5 ml @ 5 mls/min Q6H PRN IV 10/28/17 05:00 11/27/17 04:59 Doxycycline Hyclate (Vibramycin Cap) 100 mg BID PO 10/29/17 09:00 11/05/17 08:59 10/30/17 08:07 100 MG Last 24 Hours Test 10/29/17 15:53 10/29/17 19:52 10/30/17 05:18 10/30/17 06:48 Bedside Glucose 239 mg/dl 268 mg/dl 233 mg/dl Prothrombin Time 30.7 SECONDS Prothromb Time International Ratio 2.8 Sodium Level 128 mmol/L Potassium Level 5.0 mmol/L Chloride Level 99 mmol/L Carbon Dioxide Level 18 mmol/L Anion Gap 11.0 mmol/L Blood Urea Nitrogen 123 mg/dl Creatinine 2.80 mg/dl Est Creatinine Clear Calc Drug Dose 20.9 ml/min Estimated GFR () 24.6 Estimated GFR (Non- 21.3 BUN/Creatinine Ratio 43.9 Random Glucose 279 mg/dl Calcium Level 9.1 mg/dl Test 10/30/17 11:39 Bedside Glucose 235 mg/dl Other Studies: 10/29/17 10/30/17 10/31/17 08:00 08:00 08:00 Intake Total 1245 ml 1255 ml 540 ml Output Total 50 ml 150 ml 200 ml Balance 1195 ml 1105 ml 340 ml Assessment & Plan [id number] likely from atn-was improving with fluid but had to stop because patient wasn't able to tolerate. U/S showed right kidney 10.3 with a left kidney 10.4 without hydronephrosis or calculi observed. with b/l pleural effusion. creatinine trending upward to 2.8 today. expect it to get worse with fluid restriction. trying to balance volume status with kidney function as best as possible. hyponatremia-sodium of 128 and currently on free water restriction. continuing to monitor. This patient was seen and treated with direct collaboration with Dr. Sy. Thank you for the opportunity to participate in this patient's care. Appreciate the Consult. ATTENDING NOTE: I performed a history and physical examination of the patient, including specifically on history- pt feels better. oob to chair in the waiting room, on physical exam-decreased at the bases, and my impression and plan are marleny-renal us normal, hyponatremia-would like to eventually restart fluids but physical exam suggestive of chf. chest xray shows layering effusions. For now, continue free water restriction without lasix or normal saline. if sodium levels worsen, could consider normal saline at 50cc and hour with lasix. I have discussed the patient's management with Charley Scott PA-C, Please refer to above note for the documented findings and plan of care. Elisa Sy DO
[2017-10-30] MEDS: DIGOXIN 0.125 MG TAB PO SCH (16:04)
--- NOTE | 2017-10-30 20:34 | Progress Note ---
Internal Med Progress Note Date of Service: Oct 30, 2017. Provider Documentation: SUBJECTIVE: offers no complain has persisted tiredness temp remains low 36.3 no reports of chills or rigor OBJECTIVE: Vital Signs-as noted below Exam: General-no apparent distress, Eyes-sclera non icteric , PERRLA/EOMI ENT- Neck-trachea midline , no thyromegaly Lungs-no wheeze or rales Heart-regular S1/s2 Abdomen-soft, non tender Extremities-no lower ext edema Neuro-no focal deficit , AAO X3 Lab data as noted below. ASSESSMENT & PLAN: LOW TEMP /HYPOTHERMIA ; not sure of the cause pt remains asymptomatic , no evidence of sepsis BP stable no evidence of CVA was put on warming blanket earlier , was removed as pt complains of being too warm blood cultures on admission was negative TSH level wnl ESR 47 , random cortisol level 23.8 -doubt adrenal insufficiency will order cosyntropin stem test in AM ; NPO past midnight diet can be resumed after the test Sinusitis /URI symptom has improved Presented with nasal congestion, shortness of breath, mild hypoxia requiring 2L of O2 CXR showed bibasilar densities are nonspecific but favor atelectasis from the pleural effusion. Flu negative for influenza Lactic acid and procalcitonin wnl Blood cultures no growth PO abx with Doxycycline ( avoid Levaquin -may cause worsening of coagulopathy due to drug interaction On flonase and nasal saline Congestion improved Clinically improved CAD s/p CABG Elevated Troponin Mild elevation in troponin seems to be a chronic elevation from previous lab/ YASIR on CKD stage 3 no complain of chest pain Troponin trended down continue aspirin, statin, b-tea, Imdur Last echo in July 2017 showed EF of 20-25%, severe pulmonary HTN Continue monitor in telemetry Acute Kidney Injury superimposed on CKD stage 3 no oliguric /ATN , Cr improving gradually with IV hydration cont hold Torsemide , Entresto appreciate input form Nephrology Severe Ischemic Cardiomyopathy Severe LV Dysfunction s/p biventricular pacer with recent pacer check diuretic and entresto on hold for dehydration /YASIR cont Digoxin recent ECHO : Interpretation Summary Akinesis and thinning of the inferior, inferolateral, anterolateral and apical henriquez. Otherwise diffuse hypokinesis in the remaining segments. The left ventricular systolic function is severely reduced. Calculated LV ejection Fraction = 22% (biplane method of discs). Severe pulmonary hypertension is present. Dilated IVC with reduced collapsibility with sniff indicates an elevated right atrial pressure of 15mmHg. The estimated pulmonary artery systolic pressure is 73mm Hg. L Ventricular Thrombus hold Coumadin for INR 4-> 6 no evidence of bleeding , concern for possible Drug interaction causing coagulopathy Abx will be changed to Doxycycline Continue monitor INR Hyponatremia chronic and persistent Lasix kept on hold Nephrology on board-appreciate input cont Free water restriction DM2 poorly controlled Hb A1c > 9 on basal Lantus insulin sliding scale BSG elevated > 200 on PO Prednisone 20 mg daily pharmacy consulted for glycemic management Hypothyroidism continue Synthroid DVT PROPHYLAXIS : INR ELEVATED DISPOSITION: lives at home with was independent in ADL's prior to admission uses Walker as assisted device PT/OT consulted Medicine follow up with Dr Pearson Called Pt's Glory Taveras -left message Vital Signs: Date Time Temp Pulse Resp B/P (MAP) Pulse Ox O2 Delivery O2 Flow Rate FiO2 10/30/17 20:00 94 Room Air 10/30/17 19:52 70 18 122/74 (90) 94 Room Air 10/30/17 17:00 36.3 10/30/17 16:08 62 18 107/72 (84) 98 Nasal Cannula 2.0 10/30/17 16:04 68 10/30/17 16:00 95 Room Air 10/30/17 12:32 35.3 67 16 130/63 (85) 95 10/30/17 12:00 Room Air 10/30/17 09:00 35.2 10/30/17 08:16 35.3 69 18 121/64 (83) 97 10/30/17 08:00 Room Air 10/30/17 04:00 96 Room Air 10/30/17 03:48 35.8 62 18 116/77 (90) 95 Room Air 10/30/17 00:00 94 Room Air 10/29/17 23:38 66 18 118/76 (90) 92 Room Air Lab Results: Results Past 24 Hours Test 10/30/17 05:18 10/30/17 06:48 10/30/17 11:39 10/30/17 16:12 Range/Units Prothrombin Time 30.7 9.0-12.0 SECONDS Prothromb Time International Ratio 2.8 0.9-1.1 Sodium Level 128 136-145 mmol/L Potassium Level 5.0 3.5-5.1 mmol/L Chloride Level 99 98-107 mmol/L Carbon Dioxide Level 18 21-32 mmol/L Anion Gap 11.0 3-11 mmol/L Blood Urea Nitrogen 123 7-18 mg/dl Creatinine 2.80 0.60-1.40 mg/dl Est Creatinine Clear Calc Drug Dose 20.9 ml/min Estimated GFR () 24.6 Estimated GFR (Non- 21.3 BUN/Creatinine Ratio 43.9 10-20 Random Glucose 279 70-99 mg/dl Calcium Level 9.1 8.5-10.1 mg/dl Bedside Glucose 233 235 274 70-99 mg/dl Test 10/30/17 17:35 10/30/17 20:30 Range/Units Erythrocyte Sedimentation Rate 47 0-14 mm/hr Random Cortisol 23.85 mcg/dl Bedside Glucose 266 70-99 mg/dl
[2017-10-30] MEDS ORDERED: PHARMACY GLYCEMIC MGMT CONSULT PRN (22:00)
[2017-10-30] MEDS ORDERED: INSULIN HUMAN REGULAR PER UNIT 4 UNITS in SYRINGE 3.96 ML IV SCH (22:30)
--- NOTE | 2017-10-30 22:33 | Progress Note ---
Progress Note Date of Service Oct 30, 2017. Progress Note spoke with pt's family and Daughter in Law -Milana Taveras phone # very worried about the patient -specially having low temp , having episodes of confusion will order ECHO to r/o any valvular heart disease repeat Cxray will call Endocrinology in [place] to discuss the case
[2017-10-31] VITALS (8 sets, daily range): BP systolic 91–124; BP diastolic 56–69; PULSE 59–80; TEMP 34.7–36.4; O2SAT 92–98
[2017-10-31] MEDS: INSULIN ASPART 100 UNITS/ML 3 ML PEN SC SCH ×6 (00:38→21:50)
[2017-10-31] MEDS ORDERED: COSYNTROPIN INJ 0.25 MCG in SYRINGE 4 ML IV ONE (05:00)
[2017-10-31] MEDS: SODIUM CHLORIDE 0.65% NA SOLN 45 ML (OCEAN) SCH ×3 (06:01→17:12)
[2017-10-31] MEDS: LEVOTHYROXINE 175 MCG TAB PO SCH (06:01)
[2017-10-31] MEDS ORDERED: COSYNTROPIN INJ 0.25 MCG in SYRINGE 4 ML IV STA (07:25)
[2017-10-31 07:33] LABS: INR 1.8 (0.9-1.1); PROTHROMBIN TIME (PATIENT) 19.5 SECONDS (9.0-12.0)
[2017-10-31 07:54] LABS: BUN/CREATININE RATIO 50.7 (10-20); CALCIUM 9.3 mg/dl (8.5-10.1); CREATININE 2.58 mg/dl (0.60-1.40); POTASSIUM 4.8 mmol/L (3.5-5.1)
[2017-10-31] MEDS ORDERED: COSYNTROPIN INJ 250 MCG in SYRINGE 4 ML IV ONE (08:00)
[2017-10-31] MEDS: ISOSORBIDE MONONITRATE 30 MG TABCR PO SCH (08:05)
[2017-10-31] MEDS: ATORVASTATIN 40 MG TAB PO SCH (08:06)
[2017-10-31] MEDS: METOPROLOL SUCC 50MG EXT REL TAB PO SCH (08:06)
[2017-10-31] MEDS: DOXYCYCLINE HYCLATE 100 MG CAP PO SCH ×2 (08:06→20:27)
[2017-10-31] MEDS: GABAPENTIN 100 MG CAP PO SCH ×3 (08:11→20:27)
[2017-10-31] MEDS: FLUTICASONE PROPIONATE NA SPR 16 GM BTL SCH (08:12)
[2017-10-31] MEDS: INSULIN GLARGINE SOLOSTAR 100 UNITS/ML 3 ML PEN SC SCH (08:16)
--- NOTE | 2017-10-31 09:44 | Nephrology Progress Note ---
Nephrology Progress Note Date of Service: Oct 31, 2017. Subjective 76 yo male seen for marleny and hyponatremia in the setting of significant uri/ sinus congestion. pt continues to be hypothermic. on guy hugger. blood cultures negative. esr only mildly elevated. random cortisol is good. getting cortisol stim test this morning. Objective Date Time Temp Pulse Resp B/P (MAP) Pulse Ox O2 Delivery O2 Flow Rate FiO2 10/31/17 08:00 Room Air 10/31/17 07:20 60 20 91/56 (68) 93 Room Air 10/31/17 04:15 92 Room Air 10/31/17 03:40 60 18 106/62 (77) 92 Room Air 10/30/17 23:45 34.7 61 18 105/67 (80) 94 Room Air 10/30/17 23:30 94 Room Air 10/30/17 20:00 94 Room Air 10/30/17 19:52 70 18 122/74 (90) 94 Room Air 10/30/17 17:00 36.3 10/30/17 16:08 62 18 107/72 (84) 98 Nasal Cannula 2.0 10/30/17 16:04 68 10/30/17 16:00 95 Room Air 10/30/17 12:32 35.3 67 16 130/63 (85) 95 10/30/17 12:00 Room Air Physical Exam: General-aaox3 Eyes-no scleral icterus ENT-mmm Neck-supple Lungs-cta Heart-2/6 systolic murmur Abdomen-bs+ s/nt/nd Extremities-no c/c/e Neuro-nonfocal Current Inpatient Medications Medications (Trade) Dose Ordered Sig/Fadi Route Start Time Stop Time Status Last Admin Dose Admin Aspirin (Ecotrin Tab) 81 mg DAILY PO 10/25/17 09:00 11/24/17 08:59 Future Hold 10/28/17 07:51 81 MG Atorvastatin Calcium (Lipitor Tab) 40 mg DAILY PO 10/25/17 09:00 11/24/17 08:59 10/31/17 08:06 40 MG Digoxin (Lanoxin Tab) 0.125 mg DAILY@1600 PO 10/25/17 16:00 11/24/17 15:59 10/30/17 16:04 0.125 MG Gabapentin (Neurontin Cap) 100 mg TID PO 10/25/17 09:00 11/24/17 08:59 10/31/17 08:11 100 MG Isosorbide Mononitrate (Imdur Ext Rel Tab) 15 mg QAM PO 10/25/17 09:00 11/24/17 08:59 10/31/17 08:05 15 MG Metoprolol Succinate (Toprol Xl Tab) 50 mg DAILY PO 10/25/17 09:00 11/24/17 08:59 10/31/17 08:06 50 MG Nitroglycerin (Nitrostat Tab) 0.4 mg UD PRN SL 10/24/17 23:45 11/23/17 23:44 Sacubitril/ Valsartan (Entresto 24-26 Mg) 1 tab BID PO 10/25/17 09:00 11/24/17 08:59 Future Hold 10/26/17 20:16 1 TAB Insulin Aspart (novoLOG ASPART) SLIDING SCALE If C... ACHS SC 10/25/17 02:00 11/24/17 01:59 10/31/17 08:15 8 UNITS Glucose (Glucose 40% Gel) 15-30 GRAMS 15 GRAMS... UD PRN PO 10/24/17 23:45 11/23/17 23:44 Glucose (Glucose Chew Tab) 4-8 Tablets 4 Tabl... UD PRN PO 10/24/17 23:45 11/23/17 23:44 Dextrose (Dextrose 50% 50ML Syringe) 25-50ML OF 50% DW IV FOR... UD PRN IV 10/24/17 23:45 11/23/17 23:44 Glucagon (Glucagon Inj) 1 mg UD PRN SQ 10/24/17 23:45 11/23/17 23:44 Acetaminophen (Tylenol Tab) 650 mg Q4H PRN PO 10/25/17 01:30 11/24/17 01:29 Levothyroxine Sodium (Synthroid Tab) 175 mcg DAILYBB PO 10/25/17 06:00 11/24/17 05:59 10/31/17 06:01 175 MCG Fluticasone Propionate (Flonase Nasal Elizabeth) 2 sprays DAILY NA 10/26/17 09:00 11/25/17 08:59 10/31/17 08:12 2 SPRAYS Sodium Chloride ([place] Nasal Elizabeth) 2 sprays Q6 NA 10/25/17 12:00 11/24/17 11:59 10/31/17 06:01 2 SPRAYS Prednisone (PredniSONE TAB) 20 mg DAILY PO 10/27/17 09:00 11/01/17 08:59 10/31/17 08:06 20 MG Insulin Glargine (Lantus Solostar Pen) 10 units Q12 SC 10/27/17 21:00 11/24/17 01:59 10/31/17 08:16 10 UNITS Prochlorperazine Edisylate 5 mg/ Syringe 5 ml @ 5 mls/min Q6H PRN IV 10/28/17 05:00 11/27/17 04:59 Doxycycline Hyclate (Vibramycin Cap) 100 mg BID PO 10/29/17 09:00 11/05/17 08:59 10/31/17 08:06 100 MG Miscellaneous Information (Consult Glycemic Management Pharmacy) 1 ea DAILY PRN N/A 10/30/17 22:00 11/29/17 21:59 Warfarin Sodium (Coumadin Tab) 5 mg DAILY@16 PO 10/31/17 16:00 11/30/17 15:59 Last 24 Hours Test 10/30/17 11:39 10/30/17 16:12 10/30/17 17:35 10/30/17 20:30 Bedside Glucose 235 mg/dl 274 mg/dl 266 mg/dl Erythrocyte Sedimentation Rate 47 mm/hr Random Cortisol 23.85 mcg/dl Test 10/31/17 00:24 10/31/17 04:09 10/31/17 06:48 10/31/17 07:07 Bedside Glucose 245 mg/dl 127 mg/dl 96 mg/dl Prothrombin Time 19.5 SECONDS Prothromb Time International Ratio 1.8 Sodium Level 132 mmol/L Potassium Level 4.8 mmol/L Chloride Level 100 mmol/L Carbon Dioxide Level 20 mmol/L Anion Gap 12.0 mmol/L Blood Urea Nitrogen 131 mg/dl Creatinine 2.58 mg/dl Est Creatinine Clear Calc Drug Dose 22.7 ml/min Estimated GFR () 27.2 Estimated GFR (Non- 23.5 BUN/Creatinine Ratio 50.7 Random Glucose 96 mg/dl Calcium Level 9.3 mg/dl Cortisol Response to Stimulation Cortisol Baseline Assessment & Plan [id number] likely from atn-creatinine mildly improved this morning. will likely take several weeks to hopefully get back to baseline. sinus congestion much improved. no hydro. hyponatremia-sodium of 132. not on diuretics or normal saline. currently on free water restriction and will continue current restriction. hypothermia-appreciate thorough workup by primary hospitalist. so far unrevealing.
--- NOTE | 2017-10-31 14:01 | Pharmacy Progress Note ---
Glycemic Control Intl Consult Date of Service Oct 31, 2017. Scope Glycemic Pharmacist consulted by Dr Avila on 10/30/17 for glycemic control and to write orders per [facility] inpatient glycemic control protocol Objective Weight (Kilograms): 74.000 Accuchecks BSG (last 24hrs): Test 10/30/17 16:12 10/30/17 20:30 10/31/17 00:24 10/31/17 04:09 Bedside Glucose 274 mg/dl (70-99) 266 mg/dl (70-99) 245 mg/dl (70-99) 127 mg/dl (70-99) Test 10/31/17 06:48 10/31/17 07:07 Bedside Glucose 96 mg/dl (70-99) Random Glucose 96 mg/dl (70-99) Laboratory Data (last 24hrs) Test 10/31/17 07:07 Anion Gap 12.0 mmol/L BUN/Creatinine Ratio 50.7 Blood Urea Nitrogen 131 mg/dl Creatinine 2.58 mg/dl Potassium Level 4.8 mmol/L Sodium Level 132 mmol/L HbA1c Test 10/28/17 00:23 Hemoglobin A1c 9.0 % (4.5-5.6) H Recent Pertinent Medications Outpatient Anti-diabetic Regimen: * Lantus 12 units SQ qPM + Novolog The patient is currently receiving: * Basal insulin: Lantus 10 units every 12 hours * Correctional Insulin: Novolog Correction per scale ACHS Goal Range: Low 140 mg/dL - High 180 mg/dL Correction Factor: 10 mg/dL/unit * Prandial insulin: Per carb ratio of 1 unit per 5 grams CHO consumed * Oral Agents: Risk Factors for Insulin Resistance: * Steroids: prednisone 20 mg PO daily * Infection: sinusitis on doxycycline * Diet: type 2 diabetic diet Assessment & Plan ASSESSMENT: * ADA & AACE recommend a goal blood sugar range 140-180 mg/dl for the majority of critically ill & non-critically ill patients. However, more stringent targets may be selected in individual cases. Will utilize more stringent goal of 110-140mg/dl based on patient age & comorbidities. Additionally, tighter glycemic control is warranted to facilitate infection healing. * Mr Taveras is a 76 y/o M with an extensive cardiac PMH. He is admitted with confusion and sinusitis. Yesterday, the patient's blood sugars ranged from 233- 274 mg/dL. He received and extra 11 units of Novolog last night. The patient's fasting blood sugar was 96 mg/dL and lunch 110 mg/dL. He received 61 units of insulin yesterday. * It appears that the patient requires around 50-55 units of insulin per day. It was not certain if the patient's blood sugar would recover until lunch time. At that point, it was safe to titrate upwards on Lantus dosing slowly. Estimate patient requires around 25 units of basal insulin. Scale available for this evening. * For Novolog, the scale was loosened slightly at dinner (current regimen very bolus heavy) in preperation for increased basal dose. Added one overnight check to ensure patient adequately controlled. PLAN FOR INPATIENT GLYCEMIC CONTROL: * Basal insulin with LANTUS 10 units SQ x 1 in morning and then 10-15 units SQ BID * Correctional Insulin with NOVOLOG per scale ACHS or Q6hrs while NPO * Goal Range: Low 110 mg/dL - High 140 mg/dL * Correction Factor: 20 mg/dL/unit * Nutritional / Prandial insulin per carb ratio of 1 unit per 7 grams CHO consumed RECOMMENDATION FOR DISCHARGE * Patient's HbA1C is uncontrolled....recommend titrating outpatient dose of insulin to desired blood sugars. Thank you.
[2017-10-31] MEDS ORDERED: WARFARIN SOD 5 MG TAB PO SCH (16:00)
--- NOTE | 2017-10-31 16:15 | ECHOCARDIOGRAM REPORT ---
*NOTICE TO RECEIVING [employer] This information is strictly Confidential and protected under [place] law. [place] law prohibits you from making any further disclosure of this information unless further disclosure is expressly permitted by the written consent of the person to whom it pertains or is authorized by law. A general authorization for the release of medical or other information is not sufficient for this purpose. Hospital accepts no responsibility if the information is made available to any other person, INCLUDING THE PATIENT. Interpretation Summary * The study was technically adequate. * Compared to prior study, changes are noted. * -- Conclusions -- * Indication: hypothermia, assess for endocarditis * The LV ejection fraction is 15-20% * The LV Flattened septum is consistent with RV pressure/volume overload. * The right ventricle is moderately dilated. * The right ventricular systolic function is moderate to severely reduced. * There is severe tricuspid regurgitation. * Estimated systolic PAP is 70 mmHg. * Dilated inferior vena cava with reduced collapsability with sniff indicates an elevated right atrial pressure of 15 mmHg * There is mild mitral regurgitation. * There is a small loculated posterior pericardial effusion. * There are no echocardiographic indications of cardiac tamponade. * Compared to the prior study dated 04/26/17, the LV wall motion is unchanged. * There has been resolution of the previously noted LV apical thrombus. * A small loculated posterior pericardial effusion is now present. Procedure Details * A complete two-dimensional transthoracic echocardiogram was performed (2D, M-mode, Doppler and color flow Doppler). * A contrast injection of Definity was performed to improve assessment for apical thrombus. * Contrast was injected into an intravenous site in the left arm. * One vial of Definity ultrasound contrast was diluted in normal saline to a total volume of 10 ml. A total of '2' ml of solution was administered during imaging. * Lot # [id number] of Definity utilized for procedure. * Expiration date . * The attending nurse who injected the contrast agent was Malina Mirza RN. Left Ventricle * The left ventricle is mildly dilated. * There is no LV apical thrombus. * There is normal left ventricular wall thickness. * Ejection Fraction = 15-20%. * Flattened septum is consistent with RV pressure/volume overload. * Akinesis and thinnig of the inferior, inferolateral, anterolateral and apical henriquez. Severe hypokinesis of the anterior wall. Moderate hypokinesis of the inferoseptal wall. Mild hypokinesis of the anteroseptal wall. Right Ventricle * There is a pacemaker lead in the right ventricle. * The right ventricle is moderately dilated. * The right ventricular systolic function is moderate to severely reduced. Atria * The left atrium is moderately dilated. * The right atrium is moderately dilated. * A pacemker lead is noted in the right atrium. Mitral Valve * Calcified mitral apparatus. * There is no mitral valve stenosis. * There is mild mitral regurgitation. Tricuspid Valve * The tricuspid valve is not well visualized. * There is no tricuspid stenosis. * There is severe tricuspid regurgitation. * Estimated systolic PAP is 70 mmHg. Aortic Valve * The aortic valve is trileaflet. * No hemodynamically significant valvular aortic stenosis. * Mild aortic regurgitation. Pulmonic Valve * The pulmonary valve is inadequately visualized, but the Doppler data is adequate for interpretation. * There is no pulmonic valvular stenosis. * Moderate to severe pulmonic valvular regurgitation. Great Vessels * The aortic root is normal size. * Severe pulmonary artery dilation. Pericardium/Pleural * There is a small loculated posterior pericardial effusion. * There are no echocardiographic indications of cardiac tamponade. Right Ventricle * An AICD leat is noted in the right ventricle. Great Vessels * Dilated inferior vena cava with reduced collapsability with sniff indicates an elevated right atrial pressure of 15 mmHg Left Ventricular Diastolic Function * Diastolic dysfunction, Grade III (restrictive pattern), consistent with markedly increased left atrial pressure. MMode 2D Measurements and Calculations IVSd 0.98 cm IVSs 1.0 cm LVIDd 5.3 cm LVIDs 5.0 cm LVPWd 0.99 cm LVPWs 1.2 cm IVS/LVPW 0.99 FS 5.5 % EDV(Teich) 136.4 ml ESV(Teich) 119.7 ml EF(Teich) 12.3 % EDV(cubed) 150.4 ml ESV(cubed) 126.9 ml EF(cubed) 15.6 % % IVS thick 6.2 % % LVPW thick 23.5 % LV mass(C)d 197.1 grams LV mass(C)dI 107.5 grams/m\S\2 LV mass(C)s 216.7 grams LV mass(C)sI 118.2 grams/m\S\2 SV(Teich) 16.7 ml SI(Teich) 9.1 ml/m\S\2 SV(cubed) 23.5 ml SI(cubed) 12.8 ml/m\S\2 Ao root diam 3.0 cm Ao root area 7.2 cm\S\2 ACS 1.8 cm LA dimension 4.6 cm asc Aorta Diam 3.1 cm LA/Ao 1.5 EDV(sp4-el) 166.0 ml ESV(sp4-el) 135.0 ml EF(sp4-el) 18.7 % EDV(sp2-el) 247.0 ml ESV(sp2-el) 187.0 ml EF(sp2-el) 24.3 % SV(sp4-el) 31.0 ml SI(sp4-el) 16.9 ml/m\S\2 SV(sp2-el) 60.0 ml SI(sp2-el) 32.7 ml/m\S\2 Doppler Measurements and Calculations MV E max jessica 98.1 cm/sec MV A max jessica 48.5 cm/sec MV E/A 2.0 MV P1/2t max jessica 103.1 cm/sec MV P1/2t 69.7 msec MVA(P1/2t) 3.2 cm\S\2 MV dec slope 433.0 cm/sec\S\2 MV dec time 0.19 sec Ao V2 max 98.5 cm/sec Ao max PG 3.9 mmHg Ao max PG (full) 1.9 mmHg AI max jessica 356.6 cm/sec AI max PG 50.9 mmHg AI dec slope 170.3 cm/sec\S\2 AI P1/2t 613.6 msec LV V1 max PG 1.9 mmHg LV V1 max 69.6 cm/sec PA V2 max 62.1 cm/sec PA max PG 1.5 mmHg PI max jessica 266.4 cm/sec PI max PG 28.4 mmHg PI dec slope 300.5 cm/sec\S\2 PI P1/2t 259.7 msec TR max jessica 356.0 cm/sec
[2017-10-31] MEDS: ALBUT/IPRATROP 3MG/0.5MG NEB 3 ML VIAL INH SCH ×3 (16:28→20:03)
--- NOTE | 2017-10-31 17:03 | DIAGNOSTIC IMAGING REPORT ---
SINGLE VIEW CHEST CLINICAL HISTORY: Dyspnea. FINDINGS: An AP, portable, upright chest radiograph is compared to study dated 10/30/2017. The examination is degraded by portable technique and patient rotation. A 3-lead cardiac AICD is unchanged in position and partially obscures the left mid chest. The patient is status post midline sternotomy. The heart is enlarged and there is atherosclerotic calcification of the thoracic aorta. The pulmonary vasculature is noncongested. There are layering pleural effusions with bibasilar consolidation. No pneumothorax is seen. The skeletal structures are osteopenic. Degenerative changes are seen throughout the thoracic spine. IMPRESSION: 1. Cardiomegaly and AICD. There is no convincing radiographic evidence of congestive failure and there has been no significant change from yesterday. 2. Layering pleural effusions and bibasilar consolidation. Electronically signed by: Chester Das M.D. 10/31/2017 5:02 PM Dictated Date/Time: 10/31/2017 5:01 PM
[2017-10-31] MEDS: DIGOXIN 0.125 MG TAB PO SCH (17:12)
--- NOTE | 2017-10-31 19:32 | Progress Note ---
Internal Med Progress Note Date of Service: Oct 31, 2017. Provider Documentation: SUBJECTIVE: complains of nasal congestion more SOB , feels more weak and tired today temp remains persistently low pt denies of chills or rigor all cultures been negative OBJECTIVE: Vital Signs-as noted below Exam: General-no apparent distress, Eyes-sclera non icteric , PERRLA/EOMI ENT-moist oral mucosa , normal oropharynx Neck-trachea midline , no thyromegaly Lungs-no wheeze or rales Heart-regular S1/s2 Abdomen-soft, non tender Extremities-no lower ext edema Neuro-no focal deficit , AAO X3 Lab data as noted below. ASSESSMENT & PLAN: LOW TEMP /HYPOTHERMIA ; not sure of the cause pt remains asymptomatic , no evidence of sepsis BP stable no evidence of CVA was put on warming blanket earlier , was removed as pt complains of being too warm blood cultures on admission was negative TSH level wnl ESR 47 , random cortisol level 23.8 -doubt adrenal insufficiency cosyntropin stem test in AM ;shows normal response blood cultures been negative ,no evidence of sepsis or infection D/w Endocrinology in [facility] Dr Baljinder Collier -case reviewed with him Dr Nicole's mentions all the appropriate endocrine test are done -and appears to be wnl pt does not have adrenal insufficiency , no evidence of hypothyroidism pt being asymptomatic does not believe transfer pt to [facility] will offer any more benefit Hypothetically pt can be ruled out for Stroke affective brainstem / thermoregulatory area ( hx of cardiac thrombus ) although neurologically pt does not show any evidence of CVA or deficit MRI of brain could not be done as pt has pacemaker CT head with out contrast ordered -no acute change noted pt and family updated regarding the Endocrine recommendation form [facility] and CT head report Sinusitis /URI symptom has improved Presented with nasal congestion, shortness of breath, mild hypoxia requiring 2L of O2 CXR showed bibasilar densities are nonspecific but favor atelectasis from the pleural effusion. Flu negative for influenza Lactic acid and procalcitonin wnl Blood cultures no growth PO abx with Doxycycline ( avoid Levaquin -may cause worsening of coagulopathy due to drug interaction On Flonase and nasal saline Congestion improved Clinically improved CAD s/p CABG Elevated Troponin Mild elevation in troponin seems to be a chronic elevation from previous lab/ YASIR on CKD stage 3 no complain of chest pain Troponin trended down continue aspirin, statin, b-tea, Imdur repeat ECHO ordered to R/o Endocarditis in setting of persistent hypothermia ECHO shows : The LV ejection fraction is 15-20% The LV Flattened septum is consistent with RV pressure/volume overload. The right ventricle is moderately dilated. The right ventricular systolic function is moderate to severely reduced. There is severe tricuspid regurgitation. Acute Kidney Injury superimposed on CKD stage 3 no oliguric /ATN , Cr improving gradually cont hold Torsemide , Entresto appreciate input form Nephrology IVF on hold to prevent vol over load /CHF with severe cardiomyopathy cont fluid restriction Severe Ischemic Cardiomyopathy Severe LV Dysfunction s/p biventricular pacer with recent pacer check diuretic and entresto on hold for dehydration /YASIR cont Digoxin Echo as above L Ventricular Thrombus Coumadin resumed Hyponatremia chronic and persistent Lasix kept on hold Nephrology on board-appreciate input cont Free water restriction DM2 poorly controlled Hb A1c > 9 on basal Lantus insulin sliding scale BSG elevated > 200 on PO Prednisone 20 mg daily pharmacy consulted for glycemic management Hypothyroidism continue Synthroid DVT PROPHYLAXIS : on Coumadin DISPOSITION: Pt/OT eval requested Medicine follow up with Dr Pearson updated given to and Daughter in law Milana Vital Signs: Date Time Temp Pulse Resp B/P (MAP) Pulse Ox O2 Delivery O2 Flow Rate FiO2 11/01/17 15:53 62 11/01/17 15:36 60 16 98 Room Air 11/01/17 15:10 36.3 60 16 121/73 (89) 98 Room Air 11/01/17 12:50 63 16 125/73 (90) 98 Room Air 11/01/17 11:51 36.5 60 18 96 2.0 11/01/17 11:33 60 18 120/67 (84) 96 Room Air 11/01/17 11:21 63 16 99 Room Air 11/01/17 08:00 Room Air 11/01/17 07:31 63 18 102/62 (75) 93 Room Air 11/01/17 07:01 63 16 94 Room Air 11/01/17 04:00 Room Air 11/01/17 02:45 36.5 60 20 119/69 (86) 99 Nasal Cannula 2.0 11/01/17 00:11 36.3 68 18 99/64 (76) 91 Room Air 10/31/17 23:59 Room Air 10/31/17 20:06 80 16 94 Room Air 10/31/17 20:00 Room Air 10/31/17 19:21 36.4 62 18 124/69 (87) 98 Nasal Cannula 2.0 Lab Results: Results Past 24 Hours Test 10/31/17 20:43 11/01/17 00:15 11/01/17 01:54 11/01/17 06:34 Range/Units Bedside Glucose 159 151 96 70-99 mg/dl Urine Color YELLOW Urine Appearance CLEAR CLEAR Urine pH 5.0 4.5-7.5 Urine Specific [place] 1.021 1.000-1.030 Urine Protein NEG NEG Urine Glucose (UA) NEG NEG Urine Ketones NEG NEG Urine Occult Blood NEG NEG Urine Nitrite NEG NEG Urine Bilirubin NEG NEG Urine Urobilinogen NEG NEG Urine Leukocyte Esterase SMALL NEG Urine WBC (Auto) 1-5 0-5 /hpf Urine RBC (Auto) 0-4 0-4 /hpf Urine Hyaline Casts (Auto) 1-5 0-5 /lpf Urine Epithelial Cells (Auto) 5-10 0-5 /lpf Urine Bacteria (Auto) NEG NEG Test 11/01/17 06:40 11/01/17 11:14 11/01/17 16:45 Range/Units Prothrombin Time 19.0 9.0-12.0 SECONDS Prothromb Time International Ratio 1.7 0.9-1.1 Sodium Level 132 136-145 mmol/L Potassium Level 4.8 3.5-5.1 mmol/L Chloride Level 100 98-107 mmol/L Carbon Dioxide Level 22 21-32 mmol/L Anion Gap 11.0 3-11 mmol/L Blood Urea Nitrogen 138 7-18 mg/dl Creatinine 2.61 0.60-1.40 mg/dl Est Creatinine Clear Calc Drug Dose 24.3 ml/min Estimated GFR () 26.8 Estimated GFR (Non- 23.1 BUN/Creatinine Ratio 52.7 10-20 Random Glucose 101 70-99 mg/dl Calcium Level 9.5 8.5-10.1 mg/dl Bedside Glucose 151 174 70-99 mg/dl
--- NOTE | 2017-10-31 20:03 | DIAGNOSTIC IMAGING REPORT ---
CT SCAN OF THE BRAIN WITHOUT IV CONTRAST CLINICAL HISTORY: Hypothermia. COMPARISON STUDY: No priors. TECHNIQUE: Unenhanced axial CT scan of the brain is performed from the vertex to the skull base. CT DOSE: 601.98 mGy.cm FINDINGS: Brain parenchyma: There are age-related involutional changes noting mild to moderate patchy subcortical and periventricular microangiopathic change. A chronic lacunar infarct is seen in the left basal ganglia. There is no hemorrhage, mass effect, or evidence of acute territorial ischemia by CT criteria. Hirsch-white matter is preserved. No extra-axial fluid collection is seen. Ventricles, sulci, cisterns: Prominent secondary to involutional change. Intracranial vasculature: There is atherosclerotic calcification of the cavernous carotid and vertebral arteries. Calvarium: Unremarkable. Sinuses and mastoids: There is mild mucosal thickening an air-fluid level seen in the left maxillary antrum. Trace mucosal thickening is seen within the right maxillary antrum and the ethmoid sinuses. The mastoid air cells are well pneumatized. Orbits: The bony orbits are grossly intact. There are small bilateral retinal calcifications. IMPRESSION: There is no hemorrhage, mass effect, or evidence of acute territorial ischemia by CT criteria. Electronically signed by: Chester Das M.D. 10/31/2017 8:02 PM Dictated Date/Time: 10/31/2017 7:59 PM
[2017-10-31] MEDS ORDERED: ALBUT/IPRATROP 3MG/0.5MG NEB 3 ML VIAL INH PRN (20:15)
[2017-10-31] MEDS ORDERED: INSULIN GLARGINE SOLOSTAR 100 UNITS/ML 3 ML PEN SC SCH (21:00)
[2017-11-01] VITALS (14 sets, daily range): BP systolic 99–125; BP diastolic 62–73; PULSE 60–68; TEMP 36.3–36.5; O2SAT 91–99
[2017-11-01 01:18] LABS: URINE APPEARANCE CLEAR (CLEAR); URINE BILIRUBIN NEG (NEG); URINE COLOR YELLOW; URINE NITRITE NEG (NEG); URINE SPECIFIC GRAVITY 1.021 (1.000-1.030); UROBILINOGEN NEG (NEG); ZZUR CULT IF INDIC CLEAN CATCH NO
[2017-11-01 01:38] LABS: MANUAL MICROSCOPIC REQUIRED? NO; REVIEW REQ? NO
[2017-11-01] MEDS ORDERED: INSULIN ASPART 100 UNITS/ML 3 ML PEN SC SCH (02:00)
[2017-11-01] MEDS: LEVOTHYROXINE 175 MCG TAB PO SCH (06:11)
[2017-11-01] MEDS: SODIUM CHLORIDE 0.65% NA SOLN 45 ML (OCEAN) SCH ×4 (06:12→17:38)
[2017-11-01 07:21] LABS: INR 1.7 (0.9-1.1)
[2017-11-01 07:37] LABS: BUN/CREATININE RATIO 52.7 (10-20); CALCIUM 9.5 mg/dl (8.5-10.1); CREATININE 2.61 mg/dl (0.60-1.40); POTASSIUM 4.8 mmol/L (3.5-5.1)
[2017-11-01] MEDS: ALBUT/IPRATROP 3MG/0.5MG NEB 3 ML VIAL INH SCH ×4 (07:53→19:34)
[2017-11-01] MEDS: GABAPENTIN 100 MG CAP PO SCH ×3 (07:54→21:09)
[2017-11-01] MEDS: DOXYCYCLINE HYCLATE 100 MG CAP PO SCH ×2 (07:55→21:09)
[2017-11-01] MEDS: METOPROLOL SUCC 50MG EXT REL TAB PO SCH (07:55)
[2017-11-01] MEDS: ISOSORBIDE MONONITRATE 30 MG TABCR PO SCH (07:55)
[2017-11-01] MEDS: FLUTICASONE PROPIONATE NA SPR 16 GM BTL SCH (07:55)
[2017-11-01] MEDS: ATORVASTATIN 40 MG TAB PO SCH (07:55)
[2017-11-01] MEDS: INSULIN ASPART 100 UNITS/ML 3 ML PEN SC SCH ×4 (08:02→21:08)
--- NOTE | 2017-11-01 09:16 | Nephrology Progress Note ---
Nephrology Progress Note Date of Service: Nov 01, 2017. Subjective 76 yo male seen for marleny and hyponatremia in the setting of significant uri/ sinus congestion. pt hypothermic with intermittent guy hugger. workup essentially negative. pt symptomatically improved. son and Dr. Avila in room with me. Objective Date Time Temp Pulse Resp B/P (MAP) Pulse Ox O2 Delivery O2 Flow Rate FiO2 11/01/17 07:31 63 18 102/62 (75) 93 Room Air 11/01/17 07:01 63 16 94 Room Air 11/01/17 04:00 Room Air 11/01/17 02:45 36.5 60 20 119/69 (86) 99 Nasal Cannula 2.0 11/01/17 00:11 36.3 68 18 99/64 (76) 91 Room Air 10/31/17 23:59 Room Air 10/31/17 20:06 80 16 94 Room Air 10/31/17 20:00 Room Air 10/31/17 19:21 36.4 62 18 124/69 (87) 98 Nasal Cannula 2.0 10/31/17 17:12 60 10/31/17 16:28 60 16 98 Nasal Cannula 2.0 10/31/17 16:00 Room Air 10/31/17 15:26 59 18 106/61 (76) 94 Room Air 10/31/17 12:00 60 20 96/60 (72) 92 Room Air 10/31/17 12:00 34.7 10/31/17 12:00 Room Air Physical Exam: General-aaox3 Eyes-no scleral icterus ENT-mmm Neck-supple Lungs-clear Heart-2/6 systolic murmur Abdomen-bs+ s/nt/nd Extremities-no c/c/e Neuro-nonfocal Current Inpatient Medications Medications (Trade) Dose Ordered Sig/Fadi Route Start Time Stop Time Status Last Admin Dose Admin Aspirin (Ecotrin Tab) 81 mg DAILY PO 10/25/17 09:00 11/24/17 08:59 Future Hold 10/28/17 07:51 81 MG Atorvastatin Calcium (Lipitor Tab) 40 mg DAILY PO 10/25/17 09:00 11/24/17 08:59 11/01/17 07:55 40 MG Digoxin (Lanoxin Tab) 0.125 mg DAILY@1600 PO 10/25/17 16:00 11/24/17 15:59 12/1/17 17:12 0.125 MG Gabapentin (Neurontin Cap) 100 mg TID PO 10/25/17 09:00 11/24/17 08:59 11/01/17 07:54 100 MG Isosorbide Mononitrate (Imdur Ext Rel Tab) 15 mg QAM PO 10/25/17 09:00 11/24/17 08:59 11/01/17 07:55 15 MG Metoprolol Succinate (Toprol Xl Tab) 50 mg DAILY PO 10/25/17 09:00 11/24/17 08:59 11/01/17 07:55 50 MG Nitroglycerin (Nitrostat Tab) 0.4 mg UD PRN SL 10/24/17 23:45 11/23/17 23:44 Sacubitril/ Valsartan (Entresto 24-26 Mg) 1 tab BID PO 10/25/17 09:00 11/24/17 08:59 Future Hold 10/26/17 20:16 1 TAB Insulin Aspart (novoLOG ASPART) SLIDING SCALE If C... ACHS SC 10/25/17 02:00 11/24/17 01:59 11/01/17 08:02 7 UNITS Glucose (Glucose 40% Gel) 15-30 GRAMS 15 GRAMS... UD PRN PO 10/24/17 23:45 11/23/17 23:44 Glucose (Glucose Chew Tab) 4-8 Tablets 4 Tabl... UD PRN PO 10/24/17 23:45 11/23/17 23:44 Dextrose (Dextrose 50% 50ML Syringe) 25-50ML OF 50% DW IV FOR... UD PRN IV 10/24/17 23:45 11/23/17 23:44 Glucagon (Glucagon Inj) 1 mg UD PRN SQ 10/24/17 23:45 11/23/17 23:44 Acetaminophen (Tylenol Tab) 650 mg Q4H PRN PO 10/25/17 01:30 11/24/17 01:29 Levothyroxine Sodium (Synthroid Tab) 175 mcg DAILYBB PO 10/25/17 06:00 11/24/17 05:59 11/01/17 06:11 175 MCG Fluticasone Propionate (Flonase Nasal [place]) 2 sprays DAILY NA 10/26/17 09:00 11/25/17 08:59 11/01/17 07:55 2 SPRAYS Sodium Chloride ([place] Nasal [place]) 2 sprays Q6 NA 10/25/17 12:00 11/24/17 11:59 11/01/17 06:12 2 SPRAYS Prochlorperazine Edisylate 5 mg/ Syringe 5 ml @ 5 mls/min Q6H PRN IV 10/28/17 05:00 11/27/17 04:59 Doxycycline Hyclate (Vibramycin Cap) 100 mg BID PO 10/29/17 09:00 11/05/17 08:59 11/01/17 07:55 100 MG Miscellaneous Information (Consult Glycemic Management Pharmacy) 1 ea DAILY PRN N/A 10/30/17 22:00 11/29/17 21:59 Warfarin Sodium (Coumadin Tab) 5 mg DAILY@16 PO 10/31/17 16:00 11/30/17 15:59 10/31/17 17:12 5 MG Albuterol/ Ipratropium (Duoneb) 3 ml QIDR INH 10/31/17 16:30 11/30/17 16:29 11/01/17 07:53 3 ML Albuterol/ Ipratropium (Duoneb) 3 ml Q2R PRN INH 10/31/17 20:15 11/30/17 20:14 Insulin Glargine (Lantus Solostar Pen) SEE PROTOCOL TEXT PLEASE HS SC 11/01/17 21:00 12/01/17 20:59 Last 24 Hours Test 10/31/17 11:25 10/31/17 16:20 10/31/17 20:43 11/01/17 00:15 Bedside Glucose 110 mg/dl 106 mg/dl 159 mg/dl Urine Color YELLOW Urine Appearance CLEAR Urine pH 5.0 Urine Specific [place] 1.021 Urine Protein NEG Urine Glucose (UA) NEG Urine Ketones NEG Urine Occult Blood NEG Urine Nitrite NEG Urine Bilirubin NEG Urine Urobilinogen NEG Urine Leukocyte Esterase SMALL Urine WBC (Auto) 1-5 /hpf Urine RBC (Auto) 0-4 /hpf Urine Hyaline Casts (Auto) 1-5 /lpf Urine Epithelial Cells (Auto) 5-10 /lpf Urine Bacteria (Auto) NEG Test 11/01/17 01:54 11/01/17 06:34 11/01/17 06:40 Bedside Glucose 151 mg/dl 96 mg/dl Prothrombin Time 19.0 SECONDS Prothromb Time International Ratio 1.7 Sodium Level 132 mmol/L Potassium Level 4.8 mmol/L Chloride Level 100 mmol/L Carbon Dioxide Level 22 mmol/L Anion Gap 11.0 mmol/L Blood Urea Nitrogen 138 mg/dl Creatinine 2.61 mg/dl Est Creatinine Clear Calc Drug Dose 24.3 ml/min Estimated GFR () 26.8 Estimated GFR (Non- 23.1 BUN/Creatinine Ratio 52.7 Random Glucose 101 mg/dl Calcium Level 9.5 mg/dl Date/Time Source Procedure Growth Status 10/31/17 16:59 Blood Blood Culture Pending Received 10/31/17 16:39 Blood Blood Culture Pending Received Assessment & Plan [id number] likely from atn-continue to hold diuretics with creatinine not back to baseline. monitor for signs of fluid overload. unable to give fluids given poor cardiac function. hyponatremia-sodium of 132. not on diuretics or normal saline. currently on free water restriction and will continue current restriction. sodium remains stable above 130. ok from renal perspective to go to rehab and would recommend fluid restriction and no diuretics as outpt with initiation of diuretics when pt is symptomatic ie sob.
--- NOTE | 2017-11-01 15:02 | Pharmacy Progress Note ---
Pharmacy Glycemic Short Note 2 Date of Service Nov 01, 2017. Test 10/31/17 16:20 10/31/17 20:43 11/01/17 01:54 11/01/17 06:34 Bedside Glucose 106 mg/dl (70-99) 159 mg/dl (70-99) 151 mg/dl (70-99) 96 mg/dl (70-99) Test 11/01/17 06:40 11/01/17 11:14 Random Glucose 101 mg/dl (70-99) Bedside Glucose 151 mg/dl (70-99) Test 10/28/17 00:23 Hemoglobin A1c 9.0 % (4.5-5.6) H OUTPATIENT ANTIDIABETIC REGIMEN: * Lantus 12 units HS * Novolog ASSESSMENT: * Blood sugars at goal, Lantus currently BID - will change to HS dosing for patient to transition back to how he takes it at home for discharge * Tighten CF and CR slightly for steroid effects on prandial blood sugar PLAN FOR INPATIENT GLYCEMIC CONTROL: * Basal insulin * Change: Lantus SQ HS * for BSGs < 160mg/dl - 12 units * for BSGs 160mg/dl or greater - 18 units * Bolus insulin * NovoLog per scale ACHS or Q6hrs while NPO * Goal Range: Low 100 mg/dL - High 140 mg/dL * Correction Factor: 18 mg/dL/unit * Nutritional / Prandial insulin per carb ratio of 1 unit per 6 grams CHO consumed
[2017-11-01] MEDS: DIGOXIN 0.125 MG TAB PO SCH (15:53)
[2017-11-01] MEDS: WARFARIN SOD 7.5 MG TAB PO SCH (15:54)
--- NOTE | 2017-11-01 18:34 | Progress Note ---
Internal Med Progress Note Date of Service: Nov 01, 2017. Provider Documentation: SUBJECTIVE: feels better today Temp improved to normal today no fever or chills SOB /nasal congestion improved OBJECTIVE: Vital Signs-as noted below Exam: General-no apparent distress, Eyes-sclera non icteric , PERRLA/EOMI ENT-moist oral mucosa , normal oropharynx Neck-trachea midline , no thyromegaly Lungs-no wheeze or rales Heart-regular S1/s2 Abdomen-soft, non tender Extremities-no lower ext edema Neuro-no focal deficit , AAO X3 Lab data as noted below. ASSESSMENT & PLAN: LOW TEMP /HYPOTHERMIA ; improved not sure of the cause pt remains asymptomatic , no evidence of sepsis BP stable no evidence of CVA was put on warming blanket earlier , was removed as pt complains of being too warm blood cultures on admission was negative TSH level wnl ESR 47 , random cortisol level 23.8 -doubt adrenal insufficiency cosyntropin stem test in AM ;shows normal response blood cultures been negative ,no evidence of sepsis or infection D/w Endocrinology in [facility] Dr Baljinder Collier -case reviewed with him Dr Nicole's mentions all the appropriate endocrine test are done -and appears to be wnl pt does not have adrenal insufficiency , no evidence of hypothyroidism pt being asymptomatic does not believe transfer pt to [place] will offer any more benefit Hypothetically pt can be ruled out for Stroke affective brainstem / thermoregulatory area ( hx of cardiac thrombus ) although neurologically pt does not show any evidence of CVA or deficit MRI of brain could not be done as pt has pacemaker CT head with out contrast ordered -no acute change noted pt and family updated regarding the Endocrine recommendation form [place] and CT head report Sinusitis /URI symptom has improved Presented with nasal congestion, shortness of breath, mild hypoxia requiring 2L of O2 CXR showed bibasilar densities are nonspecific but favor atelectasis from the pleural effusion. Flu negative for influenza Lactic acid and procalcitonin wnl Blood cultures no growth PO abx with Doxycycline ( avoid Levaquin -may cause worsening of coagulopathy due to drug interaction On Flonase and nasal saline PRN Neb tx for SOB CAD s/p CABG Elevated Troponin Mild elevation in troponin seems to be a chronic elevation from previous lab/ YASIR on CKD stage 3 no complain of chest pain Troponin trended down continue aspirin, statin, b-tea, Imdur, resumed , Entresto repeat ECHO ordered to R/o Endocarditis in setting of persistent hypothermia ECHO shows : The LV ejection fraction is 15-20% The LV Flattened septum is consistent with RV pressure/volume overload. The right ventricle is moderately dilated. The right ventricular systolic function is moderate to severely reduced. There is severe tricuspid regurgitation. Acute Kidney Injury superimposed on CKD stage 3 no oliguric /ATN , Cr improving gradually resumed , Entresto appreciate input form Nephrology cont fluid restriction Severe Ischemic Cardiomyopathy Severe LV Dysfunction s/p biventricular pacer with recent pacer check entresto resumed cont water restriction cont Digoxin Echo as above L Ventricular Thrombus Coumadin resumed Hyponatremia chronic and persistent Lasix kept on hold Nephrology on board-appreciate input cont Free water restriction DM2 poorly controlled Hb A1c > 9 on basal Lantus insulin sliding scale BSG elevated > 200 on PO Prednisone 20 mg daily pharmacy consulted for glycemic management Hypothyroidism continue Synthroid DVT PROPHYLAXIS : on Coumadin DISPOSITION: Pt/OT eval requested pt and family thinks pt will benefit with rehab Medicine follow up with Dr Pearson updated given to pt's son present at bedside Vital Signs: Date Time Temp Pulse Resp B/P (MAP) Pulse Ox O2 Delivery O2 Flow Rate FiO2 11/01/17 15:53 62 11/01/17 15:36 60 16 98 Room Air 11/01/17 15:10 36.3 60 16 121/73 (89) 98 Room Air 11/01/17 12:50 63 16 125/73 (90) 98 Room Air 11/01/17 11:51 36.5 60 18 96 2.0 11/01/17 11:33 60 18 120/67 (84) 96 Room Air 11/01/17 11:21 63 16 99 Room Air 11/01/17 08:00 Room Air 11/01/17 07:31 63 18 102/62 (75) 93 Room Air 11/01/17 07:01 63 16 94 Room Air 11/01/17 04:00 Room Air 11/01/17 02:45 36.5 60 20 119/69 (86) 99 Nasal Cannula 2.0 11/01/17 00:11 36.3 68 18 99/64 (76) 91 Room Air 10/31/17 23:59 Room Air 10/31/17 20:06 80 16 94 Room Air 10/31/17 20:00 Room Air 10/31/17 19:21 36.4 62 18 124/69 (87) 98 Nasal Cannula 2.0 Lab Results: Results Past 24 Hours Test 10/31/17 20:43 11/01/17 00:15 11/01/17 01:54 11/01/17 06:34 Range/Units Bedside Glucose 159 151 96 70-99 mg/dl Urine Color YELLOW Urine Appearance CLEAR CLEAR Urine pH 5.0 4.5-7.5 Urine Specific [place] 1.021 1.000-1.030 Urine Protein NEG NEG Urine Glucose (UA) NEG NEG Urine Ketones NEG NEG Urine Occult Blood NEG NEG Urine Nitrite NEG NEG Urine Bilirubin NEG NEG Urine Urobilinogen NEG NEG Urine Leukocyte Esterase SMALL NEG Urine WBC (Auto) 1-5 0-5 /hpf Urine RBC (Auto) 0-4 0-4 /hpf Urine Hyaline Casts (Auto) 1-5 0-5 /lpf Urine Epithelial Cells (Auto) 5-10 0-5 /lpf Urine Bacteria (Auto) NEG NEG Test 11/01/17 06:40 11/01/17 11:14 11/01/17 16:45 Range/Units Prothrombin Time 19.0 9.0-12.0 SECONDS Prothromb Time International Ratio 1.7 0.9-1.1 Sodium Level 132 136-145 mmol/L Potassium Level 4.8 3.5-5.1 mmol/L Chloride Level 100 98-107 mmol/L Carbon Dioxide Level 22 21-32 mmol/L Anion Gap 11.0 3-11 mmol/L Blood Urea Nitrogen 138 7-18 mg/dl Creatinine 2.61 0.60-1.40 mg/dl Est Creatinine Clear Calc Drug Dose 24.3 ml/min Estimated GFR () 26.8 Estimated GFR (Non- 23.1 BUN/Creatinine Ratio 52.7 10-20 Random Glucose 101 70-99 mg/dl Calcium Level 9.5 8.5-10.1 mg/dl Bedside Glucose 151 174 70-99 mg/dl
[2017-11-01] MEDS: INSULIN GLARGINE SOLOSTAR 100 UNITS/ML 3 ML PEN SC SCH (21:09)
[2017-11-01] MEDS: SACUBITRIL-VALSARTAN 24-26 MG TAB PO SCH (21:39)
[2017-11-02] VITALS (12 sets, daily range): BP systolic 96–110; BP diastolic 60–67; PULSE 59–86; TEMP 36.6; O2SAT 93–100
[2017-11-02] MEDS: SODIUM CHLORIDE 0.65% NA SOLN 45 ML (OCEAN) SCH ×4 (00:26→17:26)
[2017-11-02] MEDS: LEVOTHYROXINE 175 MCG TAB PO SCH (06:01)
[2017-11-02] MEDS: ALBUT/IPRATROP 3MG/0.5MG NEB 3 ML VIAL INH SCH ×4 (07:07→19:39)
[2017-11-02 07:55] LABS: INR 2.6 (0.9-1.1); PROTHROMBIN TIME (PATIENT) 28.4 SECONDS (9.0-12.0)
[2017-11-02] MEDS: FLUTICASONE PROPIONATE NA SPR 16 GM BTL SCH (08:26)
[2017-11-02] MEDS: SACUBITRIL-VALSARTAN 24-26 MG TAB PO SCH ×2 (08:27→21:15)
[2017-11-02] MEDS: ATORVASTATIN 40 MG TAB PO SCH (08:27)
[2017-11-02 08:28] LABS: BUN/CREATININE RATIO 56.3 (10-20); CALCIUM 9.6 mg/dl (8.5-10.1); CREATININE 2.51 mg/dl (0.60-1.40)
[2017-11-02] MEDS: DOXYCYCLINE HYCLATE 100 MG CAP PO SCH ×2 (08:28→21:15)
[2017-11-02] MEDS: GABAPENTIN 100 MG CAP PO SCH ×3 (08:28→21:15)
[2017-11-02] MEDS: INSULIN ASPART 100 UNITS/ML 3 ML PEN SC SCH ×4 (08:38→20:51)
[2017-11-02] MEDS: METOPROLOL SUCC 50MG EXT REL TAB PO SCH (09:00)
[2017-11-02] MEDS: ASPIRIN 81 MG ECTAB PO SCH (09:00)
[2017-11-02] MEDS: ISOSORBIDE MONONITRATE 30 MG TABCR PO SCH (09:00)
--- NOTE | 2017-11-02 09:39 | Nephrology Progress Note ---
Nephrology Progress Note Date of Service: Nov 02, 2017. Subjective 76 yo male seen for marleny and hyponatremia in the setting of significant uri/ sinus congestion. pt hypothermic with intermittent guy hugger. pt with cardiomyopathy and has been off diuretics since admission. creatinine has not improved and has signficant edema in the legs. pt was sob last night when laying down. Objective Date Time Temp Pulse Resp B/P (MAP) Pulse Ox O2 Delivery O2 Flow Rate FiO2 11/02/17 07:25 60 18 98/63 (75) 100 Room Air 11/02/17 07:08 67 16 98 Room Air 11/02/17 00:18 97 Room Air 11/01/17 22:19 36.3 61 20 104/64 (77) 97 Nasal Cannula 2.0 11/01/17 20:30 97 Room Air 11/01/17 19:34 63 16 97 Room Air 11/01/17 16:00 98 Room Air 11/01/17 15:53 62 11/01/17 15:36 60 16 98 Room Air 11/01/17 15:10 36.3 60 16 121/73 (89) 98 Room Air 11/01/17 12:50 63 16 125/73 (90) 98 Room Air 11/01/17 11:51 36.5 60 18 96 2.0 11/01/17 11:33 60 18 120/67 (84) 96 Room Air 11/01/17 11:21 63 16 99 Room Air Physical Exam: General-aaox3 Eyes-no scleral icterus ENT-mmm Neck-supple Lungs-clear Heart-2/6 systolic murmur Abdomen-bs+ s/nt/nd Extremities-+2 edema in the upper legs Neuro-nonfocal Current Inpatient Medications Medications (Trade) Dose Ordered Sig/Fadi Route Start Time Stop Time Status Last Admin Dose Admin Aspirin (Ecotrin Tab) 81 mg DAILY PO 10/25/17 09:00 11/24/17 08:59 Future hold 10/28/17 07:51 81 MG Atorvastatin Calcium (Lipitor Tab) 40 mg DAILY PO 10/25/17 09:00 11/24/17 08:59 11/02/17 08:27 40 MG Digoxin (Lanoxin Tab) 0.125 mg DAILY@1600 PO 10/25/17 16:00 11/24/17 15:59 11/01/17 15:53 0.125 MG Gabapentin (Neurontin Cap) 100 mg TID PO 10/25/17 09:00 11/24/17 08:59 11/02/17 08:28 100 MG Isosorbide Mononitrate (Imdur Ext Rel Tab) 15 mg QAM PO 10/25/17 09:00 11/24/17 08:59 11/01/17 07:55 15 MG Metoprolol Succinate (Toprol Xl Tab) 50 mg DAILY PO 10/25/17 09:00 11/24/17 08:59 11/01/17 07:55 50 MG Nitroglycerin (Nitrostat Tab) 0.4 mg UD PRN SL 10/24/17 23:45 11/23/17 23:44 Sacubitril/ Valsartan (Entresto 24-26 Mg) 1 tab BID PO 10/25/17 09:00 11/24/17 08:59 Future hold 11/02/17 08:27 1 TAB Insulin Aspart (novoLOG ASPART) SLIDING SCALE If C... ACHS SC 10/25/17 02:00 11/24/17 01:59 11/02/17 08:38 13 UNITS Glucose (Glucose 40% Gel) 15-30 GRAMS 15 GRAMS... UD PRN PO 10/24/17 23:45 11/23/17 23:44 Glucose (Glucose Chew Tab) 4-8 Tablets 4 Tabl... UD PRN PO 10/24/17 23:45 11/23/17 23:44 Dextrose (Dextrose 50% 50ML Syringe) 25-50ML OF 50% DW IV FOR... UD PRN IV 10/24/17 23:45 11/23/17 23:44 Glucagon (Glucagon Inj) 1 mg UD PRN SQ 10/24/17 23:45 11/23/17 23:44 Acetaminophen (Tylenol Tab) 650 mg Q4H PRN PO 10/25/17 01:30 11/24/17 01:29 Levothyroxine Sodium (Synthroid Tab) 175 mcg DAILYBB PO 10/25/17 06:00 11/24/17 05:59 11/02/17 06:01 175 MCG Fluticasone Propionate (Flonase Nasal [place]) 2 sprays DAILY NA 10/26/17 09:00 11/25/17 08:59 11/02/17 08:26 2 SPRAYS Sodium Chloride ([place] Nasal [place]) 2 sprays Q6 NA 10/25/17 12:00 11/24/17 11:59 11/02/17 06:02 2 SPRAYS Prochlorperazine Edisylate 5 mg/ Syringe 5 ml @ 5 mls/min Q6H PRN IV 10/28/17 05:00 11/27/17 04:59 Doxycycline Hyclate (Vibramycin Cap) 100 mg BID PO 10/29/17 09:00 11/05/17 08:59 11/02/17 08:28 100 MG Miscellaneous Information (Consult Glycemic Management Pharmacy) 1 ea DAILY PRN N/A 10/30/17 22:00 11/29/17 21:59 Albuterol/ Ipratropium (Duoneb) 3 ml QIDR INH 10/31/17 16:30 11/30/17 16:29 11/02/17 07:07 3 ML Albuterol/ Ipratropium (Duoneb) 3 ml Q2R PRN INH 10/31/17 20:15 11/30/17 20:14 Insulin Glargine (Lantus Solostar Pen) SEE PROTOCOL TEXT PLEASE HS SC 11/01/17 21:00 12/01/17 20:59 11/01/17 21:09 18 UNITS Warfarin Sodium (Coumadin Tab) 7.5 mg DAILY@16 PO 11/01/17 16:00 11/30/17 15:59 11/01/17 15:54 7.5 MG Last 24 Hours Test 11/01/17 11:14 11/01/17 16:45 11/01/17 20:44 11/02/17 07:06 Bedside Glucose 151 mg/dl 174 mg/dl 247 mg/dl Prothrombin Time 28.4 SECONDS Prothromb Time International Ratio 2.6 Sodium Level 132 mmol/L Potassium Level 5.0 mmol/L Chloride Level 99 mmol/L Carbon Dioxide Level 23 mmol/L Anion Gap 11.0 mmol/L Blood Urea Nitrogen 141 mg/dl Creatinine 2.51 mg/dl Est Creatinine Clear Calc Drug Dose 25.3 ml/min Estimated GFR () 28.1 Estimated GFR (Non- 24.3 BUN/Creatinine Ratio 56.3 Random Glucose 186 mg/dl Calcium Level 9.6 mg/dl Test 11/02/17 07:31 Bedside Glucose 176 mg/dl Assessment & Plan [id number] likely from atn-with the sob and significant upper leg edema, will do albumin with lasix iv bid to try to diurese him and accept a higher creatinine. hyponatremia-sodium of 132. sodium levels should improve with diuretics in addition to the fluid restriction.
[2017-11-02] MEDS: ALBUMIN 25% 50 ML with FUROSEMIDE INJ 40 MG IV SCH ×4 (10:37→21:18)
[2017-11-02] MEDS: DIGOXIN 0.125 MG TAB PO SCH (16:00)
[2017-11-02] MEDS: WARFARIN SOD 7.5 MG TAB PO SCH (17:19)
--- NOTE | 2017-11-02 19:59 | Progress Note ---
Internal Med Progress Note Date of Service: Nov 02, 2017. Provider Documentation: SUBJECTIVE: sitting up on chair temp has been stable ,no hypothermia mentions of chest congestion , trying to cough up , but does not feel it is helping feels food is getting stuck in his throat has been going on for sometime , worse since admission OBJECTIVE: Vital Signs-as noted below Exam: General-no apparent distress, Eyes-sclera non icteric , PERRLA/EOMI ENT-moist oral mucosa , normal oropharynx Neck-trachea midline , no thyromegaly Lungs-no wheeze or rales Heart-regular S1/s2 Abdomen-soft, non tender Extremities-no lower ext edema Neuro-no focal deficit , AAO X3 Lab data as noted below. ASSESSMENT & PLAN: LOW TEMP /HYPOTHERMIA ; resolved, tamp has been wnl for last 24 hrs not sure of the cause pt remains asymptomatic , no evidence of sepsis BP stable no evidence of CVA blood cultures on admission was negative TSH level wnl ESR 47 , random cortisol level 23.8 -doubt adrenal insufficiency cosyntropin stem test in AM ;shows normal response blood cultures been negative ,no evidence of sepsis or infection D/w Endocrinology in [facility] Dr Baljinder Collier -case reviewed with him Dr Nicole's mentions all the appropriate endocrine test are done -and appears to be wnl pt does not have adrenal insufficiency , no evidence of hypothyroidism pt being asymptomatic does not believe transfer pt to [place] will offer any more benefit Hypothetically pt can be ruled out for Stroke affective brainstem / thermoregulatory area ( hx of cardiac thrombus ) although neurologically pt does not show any evidence of CVA or deficit MRI of brain could not be done as pt has pacemaker CT head with out contrast ordered -no acute change noted pt and family updated regarding the Endocrine recommendation form [place] and CT head report Sinusitis /URI symptom has improved Presented with nasal congestion, shortness of breath, mild hypoxia requiring 2L of O2 CXR showed bibasilar densities are nonspecific but favor atelectasis from the pleural effusion. Flu negative for influenza Lactic acid and procalcitonin wnl Blood cultures no growth PO abx with Doxycycline ( avoid Levaquin -may cause worsening of coagulopathy due to drug interaction On Flonase and nasal saline PRN Neb tx for SOB CAD s/p CABG Elevated Troponin Mild elevation in troponin seems to be a chronic elevation from previous lab/ YASIR on CKD stage 3 no complain of chest pain Troponin trended down continue aspirin, statin, b-tea, Imdur, resumed , Entresto repeat ECHO ordered to R/o Endocarditis in setting of persistent hypothermia ECHO shows : The LV ejection fraction is 15-20% The LV Flattened septum is consistent with RV pressure/volume overload. The right ventricle is moderately dilated. The right ventricular systolic function is moderate to severely reduced. There is severe tricuspid regurgitation. DYSPHAGIA : mentions food getting stuck in this throat makes him cough had have the problem for weeks worse in past few days after hospital admission Cxray to R/o aspiration pneumonitis changed to mechanical soft diet speech eval requested Acute Kidney Injury superimposed on CKD stage 3 no oliguric /ATN , Cr improving gradually resumed , Entresto appreciate input form Nephrology cont fluid restriction Severe Ischemic Cardiomyopathy Severe LV Dysfunction s/p biventricular pacer with recent pacer check started on IV Lasix with Albumin by Nephrology to prevent vol overload entresto resumed cont water restriction cont Digoxin Echo as above L Ventricular Thrombus Coumadin resumed Hyponatremia improved Nephrology on board-appreciate input cont Free water restriction Lasix resumed for CHF cont to monitor BMP DM2 poorly controlled Hb A1c > 9 on basal Lantus insulin sliding scale on PO Prednisone 20 mg daily pharmacy consulted for glycemic management Hypothyroidism continue Synthroid DVT PROPHYLAXIS : on Coumadin DISPOSITION: Pt/OT eval requested pt and family thinks pt will benefit with rehab Medicine follow up with Dr Pearson called pt's -Glory Taveras -updated over phone Vital Signs: Date Time Temp Pulse Resp B/P (MAP) Pulse Ox O2 Delivery O2 Flow Rate FiO2 11/03/17 08:19 97 Room Air 11/03/17 07:49 63 16 98 Room Air 11/03/17 07:15 36.2 60 22 93/61 (72) 99 Room Air 11/03/17 00:00 97 Room Air 11/02/17 23:11 64 19 96/64 (75) 95 Room Air 11/02/17 20:10 97 Room Air 11/02/17 19:39 59 16 98 Room Air 11/02/17 17:26 59 18 110/67 (81) 96 Room Air 11/02/17 16:31 97 Room Air 11/02/17 16:00 59 12/3/17 15:27 36.6 65 20 98/60 (73) 93 Room Air 11/02/17 14:30 76 16 95 Room Air 11/02/17 11:08 86 16 96 Room Air Lab Results: Results Past 24 Hours Test 11/02/17 11:26 11/02/17 16:10 11/02/17 20:27 11/03/17 05:59 Range/Units Bedside Glucose 151 93 95 70-99 mg/dl Prothrombin Time 40.9 9.0-12.0 SECONDS Prothromb Time International Ratio 3.6 0.9-1.1 Sodium Level 132 136-145 mmol/L Potassium Level 4.8 3.5-5.1 mmol/L Chloride Level 103 98-107 mmol/L Carbon Dioxide Level 22 21-32 mmol/L Anion Gap 7.0 3-11 mmol/L Blood Urea Nitrogen 141 7-18 mg/dl Creatinine 2.18 0.60-1.40 mg/dl Est Creatinine Clear Calc Drug Dose 29.2 ml/min Estimated GFR () 33.3 Estimated GFR (Non- 28.8 BUN/Creatinine Ratio 64.7 10-20 Random Glucose 85 70-99 mg/dl Calcium Level 9.2 8.5-10.1 mg/dl Chemistry Specimen Hemolysis Test 11/03/17 07:27 Range/Units Bedside Glucose 70 70-99 mg/dl
[2017-11-02] MEDS: INSULIN GLARGINE SOLOSTAR 100 UNITS/ML 3 ML PEN SC SCH (21:31)
[2017-11-03] VITALS (8 sets, daily range): BP systolic 93–112; BP diastolic 54–62; PULSE 58–78; TEMP 36.2–36.7; O2SAT 94–99
[2017-11-03] MEDS: SODIUM CHLORIDE 0.65% NA SOLN 45 ML (OCEAN) SCH ×5 (06:00→23:30)
[2017-11-03 06:29] LABS: PROTHROMBIN TIME (PATIENT) 40.9 SECONDS (9.0-12.0)
[2017-11-03 06:36] LABS: INR 3.6 (0.9-1.1)
[2017-11-03 07:01] LABS: BUN/CREATININE RATIO 64.7 (10-20); CALCIUM 9.2 mg/dl (8.5-10.1); CREATININE 2.18 mg/dl (0.60-1.40); POTASSIUM 4.8 mmol/L (3.5-5.1)
[2017-11-03] MEDS: ALBUT/IPRATROP 3MG/0.5MG NEB 3 ML VIAL INH SCH ×2 (07:35→11:19)
--- NOTE | 2017-11-03 08:17 | Nephrology Progress Note ---
Nephrology Progress Note Date of Service: Nov 03, 2017. Subjective 76 yo male seen for marleny and hyponatremia in the setting of significant uri/ sinus congestion. pts edema in the legs was quite pronounced yesterday and was sob when he lay flat. started on albumin and lasix and breathing is better. urinating more. although still with significant upper thigh edema Objective Date Time Temp Pulse Resp B/P (MAP) Pulse Ox O2 Delivery O2 Flow Rate FiO2 11/03/17 07:49 63 16 98 Room Air 11/03/17 07:15 36.2 60 22 93/61 (72) 99 Room Air 11/03/17 00:00 97 Room Air 11/02/17 23:11 64 19 96/64 (75) 95 Room Air 11/02/17 20:10 97 Room Air 11/02/17 19:39 59 16 98 Room Air 11/02/17 17:26 59 18 110/67 (81) 96 Room Air 11/02/17 16:31 97 Room Air 11/02/17 16:00 59 11/02/17 15:27 36.6 65 20 98/60 (73) 93 Room Air 11/02/17 14:30 76 16 95 Room Air 11/02/17 11:08 86 16 96 Room Air Physical Exam: General-aaox3 Eyes-no scleral icterus ENT-mmm Neck-supple Lungs-cta Heart-2/6 systolic murmur Abdomen-bs+ s/nt/nd Extremities-+2 edema in the upper legs Neuro-nonfocal Current Inpatient Medications Medications (Trade) Dose Ordered Sig/Fadi Route Start Time Stop Time Status Last Admin Dose Admin Aspirin (Ecotrin Tab) 81 mg DAILY PO 10/25/17 09:00 11/24/17 08:59 Future hold 11/02/17 09:00 81 MG Atorvastatin Calcium (Lipitor Tab) 40 mg DAILY PO 10/25/17 09:00 11/24/17 08:59 11/02/17 08:27 40 MG Digoxin (Lanoxin Tab) 0.125 mg DAILY@1600 PO 10/25/17 16:00 11/24/17 15:59 11/01/17 15:53 0.125 MG Gabapentin (Neurontin Cap) 100 mg TID PO 10/25/17 09:00 11/24/17 08:59 11/02/17 21:15 100 MG Isosorbide Mononitrate (Imdur Ext Rel Tab) 15 mg QAM PO 10/25/17 09:00 11/24/17 08:59 11/01/17 07:55 15 MG Metoprolol Succinate (Toprol Xl Tab) 50 mg DAILY PO 10/25/17 09:00 11/24/17 08:59 11/01/17 07:55 50 MG Nitroglycerin (Nitrostat Tab) 0.4 mg UD PRN SL 10/24/17 23:45 11/23/17 23:44 Sacubitril/ Valsartan (Entresto 24-26 Mg) 1 tab BID PO 10/25/17 09:00 11/24/17 08:59 Future hold 11/02/17 21:15 1 TAB Insulin Aspart (novoLOG ASPART) SLIDING SCALE If C... ACHS SC 10/25/17 02:00 11/24/17 01:59 11/02/17 17:25 10 UNITS Glucose (Glucose 40% Gel) 15-30 GRAMS 15 GRAMS... UD PRN PO 10/24/17 23:45 11/23/17 23:44 Glucose (Glucose Chew Tab) 4-8 Tablets 4 Tabl... UD PRN PO 10/24/17 23:45 11/23/17 23:44 Dextrose (Dextrose 50% 50ML Syringe) 25-50ML OF 50% DW IV FOR... UD PRN IV 10/24/17 23:45 11/23/17 23:44 Glucagon (Glucagon Inj) 1 mg UD PRN SQ 10/24/17 23:45 11/23/17 23:44 Acetaminophen (Tylenol Tab) 650 mg Q4H PRN PO 10/25/17 01:30 11/24/17 01:29 Levothyroxine Sodium (Synthroid Tab) 175 mcg DAILYBB PO 10/25/17 06:00 11/24/17 05:59 11/02/17 06:01 175 MCG Fluticasone Propionate (Flonase Nasal [place]) 2 sprays DAILY NA 10/26/17 09:00 11/25/17 08:59 11/02/17 08:26 2 SPRAYS Sodium Chloride ([place] Nasal [place]) 2 sprays Q6 NA 10/25/17 12:00 11/24/17 11:59 11/02/17 17:26 2 SPRAYS Prochlorperazine Edisylate 5 mg/ Syringe 5 ml @ 5 mls/min Q6H PRN IV 10/28/17 05:00 11/27/17 04:59 Doxycycline Hyclate (Vibramycin Cap) 100 mg BID PO 10/29/17 09:00 11/05/17 08:59 11/02/17 21:15 100 MG Miscellaneous Information (Consult Glycemic Management Pharmacy) 1 ea DAILY PRN N/A 10/30/17 22:00 11/29/17 21:59 Albuterol/ Ipratropium (Duoneb) 3 ml QIDR INH 10/31/17 16:30 11/30/17 16:29 11/03/17 07:35 3 ML Albuterol/ Ipratropium (Duoneb) 3 ml Q2R PRN INH 10/31/17 20:15 11/30/17 20:14 Insulin Glargine (Lantus Solostar Pen) SEE PROTOCOL TEXT PLEASE HS SC 11/01/17 21:00 12/01/17 20:59 11/02/17 21:31 12 UNITS Warfarin Sodium (Coumadin Tab) 7.5 mg DAILY@16 PO 11/01/17 16:00 11/30/17 15:59 11/02/17 17:19 7.5 MG Furosemide 40 mg/ Albumin Human 54 ml @ 54 mls/hr BID IV 11/02/17 09:45 11/05/17 09:44 11/02/17 21:18 54 MLS/HR Last 24 Hours Test 11/02/17 11:26 11/02/17 16:10 11/02/17 20:27 11/03/17 05:59 Bedside Glucose 151 mg/dl 93 mg/dl 95 mg/dl Prothrombin Time 40.9 SECONDS Prothromb Time International Ratio 3.6 Sodium Level 132 mmol/L Potassium Level 4.8 mmol/L Chloride Level 103 mmol/L Carbon Dioxide Level 22 mmol/L Anion Gap 7.0 mmol/L Blood Urea Nitrogen 141 mg/dl Creatinine 2.18 mg/dl Est Creatinine Clear Calc Drug Dose 29.2 ml/min Estimated GFR () 33.3 Estimated GFR (Non- 28.8 BUN/Creatinine Ratio 64.7 Random Glucose 85 mg/dl Calcium Level 9.2 mg/dl Chemistry Specimen Hemolysis Test 11/03/17 07:27 Bedside Glucose 70 mg/dl Assessment & Plan [id number] likely from atn- significant upper leg edema-started pt on albumin with lasix yesterday and creatinine actually improved from yesterday to today. hyponatremia-sodium of 132. sodium levels stable on fluid restriction and lasix. ideally, would like to diurese him with the iv diuretics for two more days if possible, although symptomatically improving.
[2017-11-03] MEDS: GABAPENTIN 100 MG CAP PO SCH ×3 (08:28→21:14)
[2017-11-03] MEDS: ATORVASTATIN 40 MG TAB PO SCH (08:29)
[2017-11-03] MEDS: ASPIRIN 81 MG ECTAB PO SCH (08:29)
[2017-11-03] MEDS: LEVOTHYROXINE 175 MCG TAB PO SCH (08:29)
[2017-11-03] MEDS: SACUBITRIL-VALSARTAN 24-26 MG TAB PO SCH ×2 (08:29→21:13)
[2017-11-03] MEDS: DOXYCYCLINE HYCLATE 100 MG CAP PO SCH ×2 (08:29→21:13)
[2017-11-03] MEDS: FLUTICASONE PROPIONATE NA SPR 16 GM BTL SCH (08:30)
[2017-11-03] MEDS: ALBUMIN 25% 50 ML with FUROSEMIDE INJ 40 MG IV SCH ×4 (08:30→21:13)
[2017-11-03] MEDS: METOPROLOL SUCC 50MG EXT REL TAB PO SCH (08:31)
[2017-11-03] MEDS: ISOSORBIDE MONONITRATE 30 MG TABCR PO SCH (08:31)
[2017-11-03] MEDS: INSULIN ASPART 100 UNITS/ML 3 ML PEN SC SCH ×4 (08:41→21:00)
--- NOTE | 2017-11-03 10:14 | Pharmacy Progress Note ---
Pharmacy Glycemic Short Note 2 Date of Service Nov 03, 2017. OUTPATIENT ANTIDIABETIC REGIMEN: * Lantus 12 units qPM * Novolog 3 units with meals * A1c 9% on 10/28/17 ASSESSMENT: * Mr. Taveras received 45 units of insulin yesterday with BSGs ranging from 70- 151 mg/dL in the past 24 hours * Last dose of prednisone was on 10/31 but he still received a higher dose of Lantus on 11/01 PM -> causing lower BSGs into today * He received his home dose of Lantus last night so will plan to continue this. Expect BSGs to start to increase on the lower basal dose. * Will loosen both the CF/CR to a stress level of 2 using insulin calculator estimates, closer to what patient requires as an outpatient PLAN FOR INPATIENT GLYCEMIC CONTROL: * Change Lantus to 12 units qHS - not as per sliding scale * Continue Novolog ACHS * Adjust goal slightly to 110-140 mg/dL now that steroids worn off * LOOSEN CF to 30 * LOOSEN CR to 10 PLAN FOR DISCHARGE: * A1c elevated but has improved significantly * Continue to f/u with PCP regarding adjustment of insulin doses
[2017-11-03] MEDS ORDERED: NVLGI/PEN SC (10:19)
--- NOTE | 2017-11-03 11:15 | DIAGNOSTIC IMAGING REPORT ---
CHEST ONE VIEW PORTABLE CLINICAL HISTORY: SOB dyspnea COMPARISON STUDY: 10/31/2017 FINDINGS: Similar study radiographically. Mild stable cardiomegaly. Small bilateral pleural effusions. 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 Slight increase in pulmonary vasculature compared to the prior study. IMPRESSION: 1. Small bilateral pleural effusions with moderate stable cardiomegaly. 2. Mild increase in prominence of pulmonary vasculature suggesting a component of mild congestive failure The above report was generated using voice recognition software. It may contain grammatical, syntax or spelling errors. Electronically signed by: Justin García M.D. 11/03/2017 11:13 AM Dictated Date/Time: 11/03/2017 11:12 AM
[2017-11-03] MEDS ORDERED: ALBUT/IPRATROP 3MG/0.5MG NEB 3 ML VIAL INH PRN (14:45)
[2017-11-03] MEDS: WARFARIN SOD 7.5 MG TAB PO SCH (16:00)
[2017-11-03] MEDS: DIGOXIN 0.125 MG TAB PO SCH (16:15)
[2017-11-03] MEDS: INSULIN GLARGINE SOLOSTAR 100 UNITS/ML 3 ML PEN SC SCH (21:15)
[2017-11-03] MEDS: NYSTATIN SUSP 500,000 U/5 ML UDC PO SCH (21:19)
[2017-11-04] VITALS: O2SAT 94
[2017-11-04 00:40] VITALS: BP 99/58; PULSE 61; TEMP 36.3; O2SAT 93
[2017-11-04] MEDS: SODIUM CHLORIDE 0.65% NA SOLN 45 ML (OCEAN) SCH ×4 (05:54→22:58)
[2017-11-04] MEDS: LEVOTHYROXINE 175 MCG TAB PO SCH (05:54)
[2017-11-04 06:27] LABS: PROTHROMBIN TIME (PATIENT) 55.8 SECONDS (9.0-12.0)
[2017-11-04 06:38] LABS: INR 5.5 (0.9-1.1)
[2017-11-04 06:49] LABS: BUN/CREATININE RATIO 68.6 (10-20); CALCIUM 9.6 mg/dl (8.5-10.1); CREATININE 2.08 mg/dl (0.60-1.40); POTASSIUM 4.5 mmol/L (3.5-5.1)
[2017-11-04] MEDS ORDERED: PHYTONADIONE 5 MG TAB PO ONE (07:15)
[2017-11-04 08:00] VITALS: BP 105/65; PULSE 62; TEMP 36.3; O2SAT 96
[2017-11-04 08:08] LABS: MEAN CORPUSCULAR HGB CONC 32.9 g/dl (32-36)
[2017-11-04 08:12] LABS: HEMATOCRIT 42.3 % (42-52); MEAN CELL VOLUME 96.4 fL (80-100); MEAN CORPUSCULAR HEMOGLOBIN 31.7 pg (25-34); PLATELET COUNT 106 K/uL (130-400); RED BLOOD COUNT 4.39 M/uL (4.7-6.1); WHITE BLOOD COUNT 8.61 K/uL (4.8-10.8)
[2017-11-04 08:13] LABS: BASO % 0.1 %; BASO ABS # 0.01 K/uL (0-0.2); COMPLETE YES; ECHINOCYTES 1+; EOS % 2.1 %; IG% 0.2 %; LYMPH % 4.6 %; MONO % 5.7 %; NEUT % 87.3 %; OVALOCYTES 1+; PLT ESTIMATE DECREASED
[2017-11-04] MEDS: FLUTICASONE PROPIONATE NA SPR 16 GM BTL SCH (08:50)
[2017-11-04] MEDS: NYSTATIN SUSP 500,000 U/5 ML UDC PO SCH ×4 (08:51→21:27)
[2017-11-04] MEDS: SACUBITRIL-VALSARTAN 24-26 MG TAB PO SCH ×2 (08:51→21:27)
[2017-11-04] MEDS: GABAPENTIN 100 MG CAP PO SCH ×3 (08:51→21:27)
[2017-11-04] MEDS: ATORVASTATIN 40 MG TAB PO SCH (08:51)
[2017-11-04] MEDS: ASPIRIN 81 MG ECTAB PO SCH (08:51)
[2017-11-04] MEDS: METOPROLOL SUCC 50MG EXT REL TAB PO SCH (08:51)
[2017-11-04] MEDS: ISOSORBIDE MONONITRATE 30 MG TABCR PO SCH (08:52)
[2017-11-04] MEDS: DOXYCYCLINE HYCLATE 100 MG CAP PO SCH ×2 (08:52→21:27)
[2017-11-04] MEDS: INSULIN ASPART 100 UNITS/ML 3 ML PEN SC SCH ×4 (08:57→21:33)
[2017-11-04] MEDS: ALBUMIN 25% 50 ML with FUROSEMIDE INJ 40 MG IV SCH ×4 (09:02→21:29)
--- NOTE | 2017-11-04 10:33 | Progress Note ---
Internal Med Progress Note Date of Service: Nov 03, 2017. Provider Documentation: late entry pt seen on 11/03/17 SUBJECTIVE: mentions that breathing a bit better sinus congestion has resolved , Temp normal , no episode of hypothermia had speech eval earlier mechanical soft diet , ordered for VFSS tomorrow OBJECTIVE: Vital Signs-as noted below Exam: General-no apparent distress, Eyes-sclera non icteric , PERRLA/EOMI ENT-moist oral mucosa , normal oropharynx Neck-trachea midline , no thyromegaly Lungs-no wheeze or rales Heart-regular S1/s2 Abdomen-soft, non tender Extremities-no lower ext edema Neuro-no focal deficit , AAO X3 Lab data as noted below. ASSESSMENT & PLAN: ACUTE ON CHRONIC CHF : severe cardiomyopathy with LV dysfunction developed vol overload pt's SOB , chest heaviness could be form that Lasix was on hold few days for Hypothermia /rule out sepsis , YSAIR started on IV Lasix with Albumin by Nephrology entresto resumed cont water restriction cont Digoxin Echo : The LV ejection fraction is 15-20% LOW TEMP /HYPOTHERMIA ; resolved, tamp has been wnl for last 24 hrs not sure of the cause pt remains asymptomatic , no evidence of sepsis BP stable no evidence of CVA blood cultures on admission was negative TSH level wnl ESR 47 , random cortisol level 23.8 -doubt adrenal insufficiency cosyntropin stem test in AM ;shows normal response blood cultures been negative ,no evidence of sepsis or infection D/w Endocrinology in [facility] Dr Baljinder Collier -case reviewed with him Dr Nicole's mentions all the appropriate endocrine test are done -and appears to be wnl pt does not have adrenal insufficiency , no evidence of hypothyroidism pt being asymptomatic does not believe transfer pt to [facility] will offer any more benefit Hypothetically pt can be ruled out for Stroke affective brainstem / thermoregulatory area ( hx of cardiac thrombus ) although neurologically pt does not show any evidence of CVA or deficit MRI of brain could not be done as pt has pacemaker CT head with out contrast ordered -no acute change noted pt and family updated regarding the Endocrine recommendation form [facility] and CT head report Sinusitis /URI symptom has improved Presented with nasal congestion, shortness of breath, mild hypoxia requiring 2L of O2 CXR showed bibasilar densities are nonspecific but favor atelectasis from the pleural effusion. Flu negative for influenza Lactic acid and procalcitonin wnl Blood cultures no growth PO abx with Doxycycline ( avoid Levaquin -may cause worsening of coagulopathy due to drug interaction On Flonase and nasal saline PRN Neb tx for SOB CAD s/p CABG Elevated Troponin Mild elevation in troponin seems to be a chronic elevation from previous lab/ YASIR on CKD stage 3 no complain of chest pain Troponin trended down continue aspirin, statin, b-tea, Imdur, resumed , Entresto repeat ECHO ordered to R/o Endocarditis in setting of persistent hypothermia ECHO shows : The LV ejection fraction is 15-20% The LV Flattened septum is consistent with RV pressure/volume overload. The right ventricle is moderately dilated. The right ventricular systolic function is moderate to severely reduced. There is severe tricuspid regurgitation. DYSPHAGIA : mentions food getting stuck in this throat makes him cough had have the problem for weeks worse in past few days after hospital admission Cxray to R/o aspiration pneumonitis changed to mechanical soft diet speech eval appreciated had speech eval earlier mechanical soft diet , ordered for VFSS tomorrow Acute Kidney Injury superimposed on CKD stage 3 no oliguric /ATN , Cr improving gradually resumed , Entresto appreciate input form Nephrology cont fluid restriction L Ventricular Thrombus Coumadin resumed Hyponatremia improved Nephrology on board-appreciate input cont Free water restriction Lasix resumed for CHF cont to monitor BMP DM2 poorly controlled Hb A1c > 9 on basal Lantus insulin sliding scale on PO Prednisone 20 mg daily pharmacy consulted for glycemic management Hypothyroidism continue Synthroid DVT PROPHYLAXIS : on Coumadin DISPOSITION: Pt/OT eval requested pt and family thinks pt will benefit with rehab Medicine follow up with Dr Pearson scheduled for Video swallow tomorrow Vital Signs: Date Time Temp Pulse Resp B/P (MAP) Pulse Ox O2 Delivery O2 Flow Rate FiO2 11/07/17 09:47 66 16 96 Nasal Cannula 2.0 11/07/17 07:56 65 103/67 (79) 11/07/17 07:23 36.3 60 18 102/62 (75) 94 11/07/17 00:00 Room Air 11/06/17 23:48 36.3 76 18 106/71 (83) 96 Room Air 11/06/17 22:00 36.8 69 18 108/74 (85) 92 11/06/17 21:46 72 18 107/72 (84) 98 Room Air 11/06/17 21:15 36.7 70 18 104/68 (80) 97 Room Air 11/06/17 16:30 68 11/06/17 16:00 Room Air 11/06/17 15:59 36.5 64 18 95/61 (72) 98 Room Air Lab Results: Results Past 24 Hours Test 11/06/17 16:26 11/06/17 16:48 11/06/17 20:06 11/07/17 06:26 Range/Units Bedside Glucose 61 72 107 70-99 mg/dl Prothrombin Time 23.5 9.0-12.0 SECONDS Prothromb Time International Ratio 2.3 0.9-1.1 Sodium Level 135 136-145 mmol/L Potassium Level 5.0 3.5-5.1 mmol/L Chloride Level 107 98-107 mmol/L Carbon Dioxide Level 19 21-32 mmol/L Anion Gap 10.0 3-11 mmol/L Blood Urea Nitrogen 146 7-18 mg/dl Creatinine 2.31 0.60-1.40 mg/dl Est Creatinine Clear Calc Drug Dose 27.7 ml/min Estimated GFR () 31.1 Estimated GFR (Non- 26.8 BUN/Creatinine Ratio 63.0 10-20 Random Glucose 48 70-99 mg/dl Calcium Level 9.1 8.5-10.1 mg/dl Magnesium Level 2.0 1.8-2.4 mg/dl Test 11/07/17 07:33 11/07/17 07:49 11/07/17 08:09 11/07/17 11:08 Range/Units Bedside Glucose 52 54 96 136 70-99 mg/dl
--- NOTE | 2017-11-04 11:27 | DIAGNOSTIC IMAGING REPORT ---
(BARIUM SWALLOW) ESOPHAGUS CLINICAL HISTORY: 76 years-old Male with CP with eating and drinking; please schedule per order. Acute burning with eating TECHNIQUE: Barium contrast was administered to the patient under fluoroscopic examination. Multiple images were obtained and submitted for review. FLUOROSCOPY TIME: 0.6 minutes COMPARISON: None. Findings: During deglutition, contrast material flowed freely through the cervical esophagus, however the patient aspirated barium and the study was then terminated. On the images that were obtained, no filling defect or mucosal abnormality is identified. No abnormal stricturing or mass effect is seen. Median sternotomy wires noted. Impression: Limited study secondary to patient aspiration. The study was then terminated. Follow-up with video swallow study with speech therapy recommended. The above report was generated using voice recognition software. It may contain grammatical, syntax or spelling errors. Electronically signed by: Sekou Schneider M.D. 11/04/2017 11:26 AM Dictated Date/Time: 11/04/2017 11:23 AM
--- NOTE | 2017-11-04 13:03 | DIAGNOSTIC IMAGING REPORT ---
VIDEO SWALLOW CLINICAL HISTORY: r/o aspiration - to follow barium swallow COMPARISON STUDY: No previous studies for comparison. Fluoroscopy time: 3.2 minutes. FINDINGS: There were multiple episodes of a small amount of tracheal aspiration with thin liquids. There is no aspiration with nectar thick liquids, pudding or crackers with paste. Small amount of residual were noted. IMPRESSION: 1. Multiple episodes of a small amount of tracheal aspiration with thin liquids. 2. No aspiration with the remainder of the consistencies. 3. Full recommendations by speech pathology to follow. Electronically signed by: Ed Phillips M.D. 11/04/2017 1:01 PM Dictated Date/Time: 11/04/2017 1:00 PM
[2017-11-04 14:45] VITALS: BP 103/65; PULSE 77; TEMP 36.2; O2SAT 97
--- NOTE | 2017-11-04 15:09 | Progress Note ---
Internal Med Progress Note Date of Service: Nov 04, 2017. Provider Documentation: SUBJECTIVE: sitting on the chair comfortably afebrile has cough denies ob no pain OBJECTIVE: Vital Signs-as noted below Exam: General-alert and awake and oriented ENT-normal hearing Neck-no neck masses Lungs-cta b/l no wheezing or crackles Heart-s1 and s2 heard regular rate and rhythm no murmurs Abdomen-soft BS present non tender Extremities-b/l lower extremity gross edema present Neuro-alert and awake moves extremities Lab data as noted below. ASSESSMENT & PLAN: ACUTE ON CHRONIC CHF : severe cardiomyopathy with LV dysfunction gross lower extremity edema present Lasix was on hold few days for Hypothermia /rule out sepsis , YASIR currently on IV Lasix with Albumin by Nephrology water restriction cont Digoxin Echo : The LV ejection fraction is 15-20% daily weights continue to monitor LOW TEMP /HYPOTHERMIA ; resolved, tamp has been wnl for last 24 hrs Etiology unclear no sepsis BP stable no evidence of CVA blood cultures on admission are negative TSH level wnl ESR 47 , random cortisol level 23.8 -doubt adrenal insufficiency cosyntropin stem test in AM ;shows normal response " D/w Endocrinology in [facility] Dr Baljinder Nicole's mentions all the appropriate endocrine test are done -and appears to be wnl pt does not have adrenal insufficiency , no evidence of hypothyroidism pt being asymptomatic does not believe transfer pt to [facility] will offer any more benefit " "Hypothetically pt can be ruled out for Stroke affective brainstem / thermoregulatory area ( hx of cardiac thrombus ) But neurologically pt does not show any evidence of CVA or deficit MRI of brain could not be done as pt has pacemaker CT head with out contrast ordered -no acute change noted" Dr. Avila updated family regarding the Endocrine recommendation form [facility] and CT head report Sinusitis /URI symptom improving PO abx with Doxycycline ( avoid Levaquin -may cause worsening of coagulopathy due to drug interaction On Flonase and nasal saline PRN Neb tx for SOB CAD s/p CABG Elevated Troponin Mild elevation in troponin seems to be a chronic elevation from previous lab/ YASIR on CKD stage 3 no complain of chest pain Troponin trended down On aspirin, statin, b-tea, Imdur, resumed , Entresto currently asymptomatic DYSPHAGIA : mentions food getting stuck in this throat makes him cough s/p video swallow today await speech recommendation Acute Kidney Injury superimposed on CKD stage 3 baseline cr 1.5 cr peaked to 2.8 cr 208 today on lasix and albumin as per nephrology f/u labs L Ventricular Thrombus inr 5.5 hold coumadin no thrombus on echo Hyponatremia improved Nephrology on board-appreciate input cont Free water restriction Lasix resumed for CHF na 135 today DM2 poorly controlled Hb A1c > 9 on Lantus and insulin sliding scale on PO Prednisone 20 mg daily pharmacy consulted for glycemic management 140/111/99/90 Hypothyroidism continue Synthroid DVT PROPHYLAXIS : inr 5.5 DISPOSITION: Pt/OT eval requested social service for d/c planing Vital Signs: Date Time Temp Pulse Resp B/P (MAP) Pulse Ox O2 Delivery O2 Flow Rate FiO2 11/04/17 14:45 36.2 77 16 103/65 (78) 97 Room Air 11/04/17 08:00 Room Air 11/04/17 08:00 36.3 62 18 105/65 (78) 96 Room Air 11/04/17 00:40 36.3 61 14 99/58 (72) 93 Room Air 11/04/17 00:00 94 Room Air 11/03/17 22:17 36.3 60 18 101/54 (70) 96 Room Air 11/03/17 21:11 36.3 78 18 112/62 (79) 98 Room Air 11/03/17 17:01 Room Air 11/03/17 16:15 66 11/03/17 14:59 36.7 66 18 100/58 (72) 98 Room Air Lab Results: Results Past 24 Hours Test 11/03/17 16:21 11/03/17 20:13 11/04/17 05:48 11/04/17 07:45 Range/Units Bedside Glucose 125 140 99 70-99 mg/dl White Blood Count 8.61 4.8-10.8 K/uL Red Blood Count 4.39 4.7-6.1 M/uL Hemoglobin 13.9 14.0-18.0 g/dL Hematocrit 42.3 42-52 % Mean Corpuscular Volume 96.4 80-100 fL Mean Corpuscular Hemoglobin 31.7 25-34 pg Mean Corpuscular Hemoglobin Concent 32.9 32-36 g/dl Platelet Count 106 130-400 K/uL Mean Platelet Volume 12.0 7.4-10.4 fL Neutrophils (%) (Auto) 87.3 % Lymphocytes (%) (Auto) 4.6 % Monocytes (%) (Auto) 5.7 % Eosinophils (%) (Auto) 2.1 % Basophils (%) (Auto) 0.1 % Neutrophils # (Auto) 7.51 1.4-6.5 K/uL Lymphocytes # (Auto) 0.40 1.2-3.4 K/uL Monocytes # (Auto) 0.49 0.11-0.59 K/uL Eosinophils # (Auto) 0.18 0-0.5 K/uL Basophils # (Auto) 0.01 0-0.2 K/uL RDW Standard Deviation 62.8 36.4-46.3 fL RDW Coefficient of Variation 18.0 11.5-14.5 % Immature Granulocyte % (Auto) 0.2 % Immature Granulocyte # (Auto) 0.02 0.00-0.02 K/uL Nucleated RBC Absolute Count (auto) 0.03 0-0 K/uL Nucleated Red Blood Cells % 0.3 % Platelet Estimate DECREASED Ovalocytes 1+ Echinocytes 1+ Prothrombin Time 55.8 9.0-12.0 SECONDS Prothromb Time International Ratio 5.5 0.9-1.1 Sodium Level 135 136-145 mmol/L Potassium Level 4.5 3.5-5.1 mmol/L Chloride Level 101 98-107 mmol/L Carbon Dioxide Level 23 21-32 mmol/L Anion Gap 11.0 3-11 mmol/L Blood Urea Nitrogen 143 7-18 mg/dl Creatinine 2.08 0.60-1.40 mg/dl Est Creatinine Clear Calc Drug Dose 30.6 ml/min Estimated GFR () 35.3 Estimated GFR (Non- 30.5 BUN/Creatinine Ratio 68.6 10-20 Random Glucose 111 70-99 mg/dl Calcium Level 9.6 8.5-10.1 mg/dl Test 11/04/17 11:47 Range/Units Bedside Glucose 90 70-99 mg/dl
[2017-11-04] MEDS: DIGOXIN 0.125 MG TAB PO SCH (15:26)
[2017-11-04 19:00] VITALS: O2SAT 97
[2017-11-04] MEDS: INSULIN GLARGINE SOLOSTAR 100 UNITS/ML 3 ML PEN SC SCH (21:31)
[2017-11-04 23:18] VITALS: O2SAT 97
[2017-11-05 00:19] VITALS: BP 104/65; PULSE 60; TEMP 36.3; O2SAT 94
[2017-11-05 00:43] VITALS: BP 152/70
[2017-11-05] MEDS: LEVOTHYROXINE 175 MCG TAB PO SCH (06:10)
[2017-11-05] MEDS: SODIUM CHLORIDE 0.65% NA SOLN 45 ML (OCEAN) SCH ×4 (06:10→23:41)
[2017-11-05 07:21] LABS: INR 2.8 (0.9-1.1); PROTHROMBIN TIME (PATIENT) 28.8 SECONDS (9.0-12.0)
[2017-11-05 07:41] LABS: BUN/CREATININE RATIO 73.5 (10-20); CALCIUM 9.6 mg/dl (8.5-10.1); CREATININE 1.92 mg/dl (0.60-1.40); POTASSIUM 4.8 mmol/L (3.5-5.1)
[2017-11-05 07:51] VITALS: BP 105/62; PULSE 84; TEMP 36.3; O2SAT 90
[2017-11-05] MEDS: ASPIRIN 81 MG ECTAB PO SCH (08:26)
[2017-11-05] MEDS: INSULIN ASPART 100 UNITS/ML 3 ML PEN SC SCH ×4 (08:26→21:40)
[2017-11-05] MEDS: FLUTICASONE PROPIONATE NA SPR 16 GM BTL SCH (08:27)
[2017-11-05] MEDS: ISOSORBIDE MONONITRATE 30 MG TABCR PO SCH (08:27)
[2017-11-05] MEDS: SACUBITRIL-VALSARTAN 24-26 MG TAB PO SCH ×2 (08:27→21:29)
[2017-11-05] MEDS: METOPROLOL SUCC 50MG EXT REL TAB PO SCH (08:27)
[2017-11-05] MEDS: GABAPENTIN 100 MG CAP PO SCH ×3 (08:28→21:29)
[2017-11-05] MEDS: NYSTATIN SUSP 500,000 U/5 ML UDC PO SCH ×4 (08:29→21:29)
[2017-11-05] MEDS: ATORVASTATIN 40 MG TAB PO SCH (08:30)
[2017-11-05] MEDS: ALBUMIN 25% 50 ML with FUROSEMIDE INJ 40 MG IV SCH ×4 (08:53→21:31)
--- NOTE | 2017-11-05 09:06 | Nephrology Progress Note ---
Nephrology Progress Note Date of Service: Nov 05, 2017. Subjective 76 yo male seen for marleny and hyponatremia and had hypothermia. pt doing much better. no longer requiring guy hugger. sodium levels are stable. creatinine trending down. had significant edema in legs and started albumin and lasix and diuresing nicely. legs not as firm. Objective Date Time Temp Pulse Resp B/P (MAP) Pulse Ox O2 Delivery O2 Flow Rate FiO2 11/05/17 07:51 36.3 84 18 105/62 (76) 90 Room Air 11/05/17 00:19 36.3 60 18 104/65 (78) 94 Room Air 11/04/17 23:18 97 Room Air 11/04/17 19:00 97 Room Air 11/04/17 16:00 Room Air 11/04/17 15:26 81 11/04/17 14:45 36.2 77 16 103/65 (78) 97 Room Air Physical Exam: General-aaox3 Eyes-no scleral icterus ENT-mmm Neck-supple Lungs-clear Heart-2/6 systolic murmur Abdomen-bs+ s/nt/nd Extremities-+2 edema in the upper legs Neuro-nonfocal Current Inpatient Medications Medications (Trade) Dose Ordered Sig/Fadi Route Start Time Stop Time Status Last Admin Dose Admin Aspirin (Ecotrin Tab) 81 mg DAILY PO 10/25/17 09:00 11/24/17 08:59 Future hold 11/05/17 08:26 81 MG Atorvastatin Calcium (Lipitor Tab) 40 mg DAILY PO 10/25/17 09:00 11/24/17 08:59 11/05/17 08:30 40 MG Digoxin (Lanoxin Tab) 0.125 mg DAILY@1600 PO 10/25/17 16:00 11/24/17 15:59 11/04/17 15:26 0.125 MG Gabapentin (Neurontin Cap) 100 mg TID PO 10/25/17 09:00 11/24/17 08:59 11/05/17 08:28 100 MG Isosorbide Mononitrate (Imdur Ext Rel Tab) 15 mg QAM PO 10/25/17 09:00 11/24/17 08:59 11/05/17 08:27 15 MG Metoprolol Succinate (Toprol Xl Tab) 50 mg DAILY PO 10/25/17 09:00 11/24/17 08:59 12/6/17 08:27 50 MG Nitroglycerin (Nitrostat Tab) 0.4 mg UD PRN SL 10/24/17 23:45 11/23/17 23:44 Sacubitril/ Valsartan (Entresto 24-26 Mg) 1 tab BID PO 10/25/17 09:00 11/24/17 08:59 Future hold 11/05/17 08:27 1 TAB Insulin Aspart (novoLOG ASPART) SLIDING SCALE If C... ACHS SC 10/25/17 02:00 11/24/17 01:59 11/04/17 21:33 1 UNITS Glucose (Glucose 40% Gel) 15-30 GRAMS 15 GRAMS... UD PRN PO 10/24/17 23:45 11/23/17 23:44 Glucose (Glucose Chew Tab) 4-8 Tablets 4 Tabl... UD PRN PO 10/24/17 23:45 11/23/17 23:44 Dextrose (Dextrose 50% 50ML Syringe) 25-50ML OF 50% DW IV FOR... UD PRN IV 10/24/17 23:45 11/23/17 23:44 Glucagon (Glucagon Inj) 1 mg UD PRN SQ 10/24/17 23:45 11/23/17 23:44 Acetaminophen (Tylenol Tab) 650 mg Q4H PRN PO 10/25/17 01:30 11/24/17 01:29 Levothyroxine Sodium (Synthroid Tab) 175 mcg DAILYBB PO 10/25/17 06:00 11/24/17 05:59 11/05/17 06:10 175 MCG Fluticasone Propionate (Flonase Nasal [place]) 2 sprays DAILY NA 10/26/17 09:00 11/25/17 08:59 11/05/17 08:27 2 SPRAYS Sodium Chloride ([place] Nasal [place]) 2 sprays Q6 NA 10/25/17 12:00 11/24/17 11:59 11/05/17 06:10 2 SPRAYS Prochlorperazine Edisylate 5 mg/ Syringe 5 ml @ 5 mls/min Q6H PRN IV 10/28/17 05:00 11/27/17 04:59 Miscellaneous Information (Consult Glycemic Management Pharmacy) 1 ea DAILY PRN N/A 10/30/17 22:00 11/29/17 21:59 Furosemide 40 mg/ Albumin Human 54 ml @ 54 mls/hr BID IV 11/02/17 09:45 11/05/17 09:44 11/05/17 08:53 54 MLS/HR Albuterol/ Ipratropium (Duoneb) 3 ml Q4 PRN INH 11/03/17 14:45 11/30/17 20:14 Nystatin (Mycostatin Susp) 5 ml QID PO 11/03/17 21:00 11/13/17 20:59 11/05/17 08:29 5 ML Insulin Glargine (Lantus Solostar Pen) 10 units HS SC 11/05/17 21:00 12/05/17 20:59 Last 24 Hours Test 11/04/17 11:47 11/04/17 16:49 11/04/17 20:48 11/05/17 06:57 Bedside Glucose 90 mg/dl 112 mg/dl 163 mg/dl Prothrombin Time 28.8 SECONDS Prothromb Time International Ratio 2.8 Sodium Level 136 mmol/L Potassium Level 4.8 mmol/L Chloride Level 107 mmol/L Carbon Dioxide Level 20 mmol/L Anion Gap 9.0 mmol/L Blood Urea Nitrogen 141 mg/dl Creatinine 1.92 mg/dl Est Creatinine Clear Calc Drug Dose 33.1 ml/min Estimated GFR () 38.9 Estimated GFR (Non- 33.5 BUN/Creatinine Ratio 73.5 Random Glucose 65 mg/dl Calcium Level 9.6 mg/dl Test 11/05/17 07:47 11/05/17 08:24 Bedside Glucose 64 mg/dl 92 mg/dl Assessment & Plan [id number] likely from atn- significant upper leg edema-on albumin and lasix and diuresing nicely. legs not as firm. continue current diuretics and would like to improve edema prior to going to rehab. hyponatremia-sodium levels stable on fluid restriction and lasix.
--- NOTE | 2017-11-05 10:21 | Pharmacy Progress Note ---
Pharmacy Glycemic Short Note 2 Date of Service Nov 05, 2017. OUTPATIENT ANTIDIABETIC REGIMEN: * Lantus 12 units qPM * Novolog 3 units with meals * A1c 9% on 10/28/17 ASSESSMENT: * Mr. Taveras received 21 units of insulin yesterday with BSGs ranging from 64- 163 mg/dL * SCr has been improving daily, PO intake variable from day to day * Patient has received outpatient dose of Lantus 12 units x 3 days now and fastings have been on the lower side, with a hypoglycemic episode of 64 this AM -> will reduce basal dose by ~15% PLAN FOR INPATIENT GLYCEMIC CONTROL: * Decrease Lantus to 10 units qPM * Continue Novolog ACHS * Goal 110-140 * CF 30 * CR 10 PLAN FOR DISCHARGE: * see note from 11/03
[2017-11-05 15:04] VITALS: Ht 167.6 cm; Wt 78.6 kg
[2017-11-05 15:32] VITALS: BP 123/74; PULSE 60; TEMP 36.3; O2SAT 94
--- NOTE | 2017-11-05 16:49 | Progress Note ---
Internal Med Progress Note Date of Service: Nov 05, 2017. Provider Documentation: SUBJECTIVE: sitting on the chair comfortably complains of sob on exertion ambulated in hallway with PT afebrile says lying down making him sob OBJECTIVE: Vital Signs-as noted below Exam: General-alert and awake and oriented ENT-normal hearing Neck-no neck masses Lungs-cta b/l no wheezing or crackles Heart-s1 and s2 heard regular rate and rhythm no murmurs Abdomen-soft BS present non tender Extremities-b/l lower extremity gross edema present Neuro-alert and awake moves extremities Lab data as noted below. ASSESSMENT & PLAN: ACUTE ON CHRONIC CHF : severe cardiomyopathy with LV dysfunction gross lower extremity edema present Lasix was on hold few days for Hypothermia /rule out sepsis , YASIR currently on IV Lasix with Albumin by Nephrology fluid restriction cont Digoxin Echo : The LV ejection fraction is 15-20% daily weights will f/u cxr as patient still having sob on exertion continue to monitor LOW TEMP /HYPOTHERMIA ; resolved, tamp has been wnl for last 24 hrs Etiology unclear no sepsis BP stable no evidence of CVA blood cultures on admission are negative TSH level wnl ESR 47 , random cortisol level 23.8 -doubt adrenal insufficiency cosyntropin stem test in AM ;shows normal response " D/w Endocrinology in [facility] Dr Baljinder Nicole's mentions all the appropriate endocrine test are done -and appears to be wnl pt does not have adrenal insufficiency , no evidence of hypothyroidism pt being asymptomatic does not believe transfer pt to [place] will offer any more benefit " "Hypothetically pt can be ruled out for Stroke affective brainstem / thermoregulatory area ( hx of cardiac thrombus ) But neurologically pt does not show any evidence of CVA or deficit MRI of brain could not be done as pt has pacemaker CT head with out contrast ordered -no acute change noted" Dr. vAila updated family regarding the Endocrine recommendation form [place] and CT head report Sinusitis /URI symptom improving PO abx with Doxycycline ( avoid Levaquin -may cause worsening of coagulopathy due to drug interaction On Flonase and nasal saline PRN Neb tx for SOB continue same CAD s/p CABG Elevated Troponin Mild elevation in troponin seems to be a chronic elevation from previous lab/ YASIR on CKD stage 3 no complain of chest pain Troponin trended down On aspirin, statin, b-tea, Imdur, resumed , Entresto currently asymptomatic DYSPHAGIA : mentions food getting stuck in this throat makes him cough s/p video swallow today await speech recommendation- recommends mechanical soft diet Acute Kidney Injury superimposed on CKD stage 3 baseline cr 1.5 cr peaked to 2.8 cr 1.9 today on lasix and albumin as per nephrology f/u labs L Ventricular Thrombus inr 5.5 hold coumadin inr 2.8 today no thrombus on echo Hyponatremia improved Nephrology on board-appreciate input cont Free water restriction Lasix resumed for CHF na 136 today DM2 poorly controlled Hb A1c > 9 on Lantus and insulin sliding scale on PO Prednisone 20 mg daily pharmacy consulted for glycemic management 64,92,112,126 Hypothyroidism continue Synthroid DVT PROPHYLAXIS : inr 5.5 DISPOSITION: Pt/OT eval requested social service for d/c planing Vital Signs: Date Time Temp Pulse Resp B/P (MAP) Pulse Ox O2 Delivery O2 Flow Rate FiO2 11/05/17 16:00 Room Air 11/05/17 15:32 36.3 60 18 123/74 (90) 94 Room Air 11/05/17 08:00 Room Air 11/05/17 07:51 36.3 84 18 105/62 (76) 90 Room Air 11/05/17 00:19 36.3 60 18 104/65 (78) 94 Room Air 11/04/17 23:18 97 Room Air 11/04/17 19:00 97 Room Air Lab Results: Results Past 24 Hours Test 11/04/17 16:49 11/04/17 20:48 11/05/17 06:57 11/05/17 07:47 Range/Units Bedside Glucose 112 163 64 70-99 mg/dl Prothrombin Time 28.8 9.0-12.0 SECONDS Prothromb Time International Ratio 2.8 0.9-1.1 Sodium Level 136 136-145 mmol/L Potassium Level 4.8 3.5-5.1 mmol/L Chloride Level 107 98-107 mmol/L Carbon Dioxide Level 20 21-32 mmol/L Anion Gap 9.0 3-11 mmol/L Blood Urea Nitrogen 141 7-18 mg/dl Creatinine 1.92 0.60-1.40 mg/dl Est Creatinine Clear Calc Drug Dose 33.1 ml/min Estimated GFR () 38.9 Estimated GFR (Non- 33.5 BUN/Creatinine Ratio 73.5 10-20 Random Glucose 65 70-99 mg/dl Calcium Level 9.6 8.5-10.1 mg/dl Test 11/05/17 08:24 11/05/17 11:18 11/05/17 16:11 Range/Units Bedside Glucose 92 112 126 70-99 mg/dl
[2017-11-05] MEDS: DIGOXIN 0.125 MG TAB PO SCH (16:51)
[2017-11-05] MEDS: INSULIN GLARGINE SOLOSTAR 100 UNITS/ML 3 ML PEN SC SCH (21:41)
[2017-11-05 23:10] VITALS: BP 109/71; PULSE 73; TEMP 36.2; O2SAT 97
[2017-11-06] VITALS (7 sets, daily range): BP systolic 95–127; BP diastolic 61–87; PULSE 63–86; TEMP 36.3–36.8; O2SAT 92–98
[2017-11-06] MEDS: SODIUM CHLORIDE 0.65% NA SOLN 45 ML (OCEAN) SCH ×3 (06:03→17:49)
[2017-11-06] MEDS: LEVOTHYROXINE 175 MCG TAB PO SCH (06:03)
[2017-11-06] MEDS: INSULIN ASPART 100 UNITS/ML 3 ML PEN SC SCH ×4 (07:53→20:42)
[2017-11-06 08:51] LABS: BLOOD UREA NITROGEN 145 mg/dl (7-18); BUN/CREATININE RATIO 68.9 (10-20); CALCIUM 9.4 mg/dl (8.5-10.1); CARBON DIOXIDE 23 mmol/L (21-32); CHLORIDE 106 mmol/L (98-107); GLUCOSE 82 mg/dl (70-99); SODIUM 134 mmol/L (136-145)
--- NOTE | 2017-11-06 09:12 | DIAGNOSTIC IMAGING REPORT ---
CHEST 2 VIEWS ROUTINE CLINICAL HISTORY: sob dyspnea COMPARISON STUDY: 11/03/2017 FINDINGS: Improved left pleural effusion. Moderate stable cardiomegaly. Small right effusion unchanged. Mid and upper lungs are clear. Prior median sternotomy as well as bipolar pacemaker/to fibular placement unchanged. Findings of pulmonary vascular congestion stable. IMPRESSION: Improved aeration left base with a mild decrease in volume of left pleural effusion. Study is otherwise unchanged. Persistent prominence of pulmonary vasculature. The above report was generated using voice recognition software. It may contain grammatical, syntax or spelling errors. Electronically signed by: Justin García M.D. 11/06/2017 9:11 AM Dictated Date/Time: 11/06/2017 9:09 AM
[2017-11-06 09:26] LABS: BASO % 0.5 %; BASO ABS # 0.03 K/uL (0-0.2); COMPLETE YES; EOS % 1.9 %; HEMATOCRIT 44.8 % (42-52); IG% 0.9 %; LYMPH % 6.9 %; MEAN CORPUSCULAR HEMOGLOBIN 31.9 pg (25-34); MEAN CORPUSCULAR HGB CONC 32.6 g/dl (32-36); MONO % 8.3 %; NEUT % 81.5 %; PLATELET COUNT 100 K/uL (130-400); RED BLOOD COUNT 4.57 M/uL (4.7-6.1); WHITE BLOOD COUNT 5.76 K/uL (4.8-10.8)
[2017-11-06] MEDS: FLUTICASONE PROPIONATE NA SPR 16 GM BTL SCH (09:50)
[2017-11-06] MEDS: ATORVASTATIN 40 MG TAB PO SCH (09:50)
[2017-11-06] MEDS: ASPIRIN 81 MG ECTAB PO SCH (09:50)
[2017-11-06] MEDS: ALBUMIN 25% 50 ML with FUROSEMIDE INJ 40 MG IV SCH ×4 (09:50→21:13)
[2017-11-06] MEDS: SACUBITRIL-VALSARTAN 24-26 MG TAB PO SCH ×2 (09:51→20:39)
[2017-11-06] MEDS: GABAPENTIN 100 MG CAP PO SCH ×3 (09:51→20:38)
[2017-11-06] MEDS: ISOSORBIDE MONONITRATE 30 MG TABCR PO SCH (09:51)
[2017-11-06] MEDS: NYSTATIN SUSP 500,000 U/5 ML UDC PO SCH ×4 (09:51→20:37)
[2017-11-06] MEDS: METOPROLOL SUCC 50MG EXT REL TAB PO SCH (09:51)
[2017-11-06] MEDS: DIGOXIN 0.125 MG TAB PO SCH (16:30)
--- NOTE | 2017-11-06 17:15 | Progress Note ---
Internal Med Progress Note Date of Service: Nov 06, 2017. Provider Documentation: SUBJECTIVE: sitting on the chair comfortably says sob is better than yesterday but still has significant sob could not sleep on the bed has cough afebrile no pain OBJECTIVE: Vital Signs-as noted below Exam: General-alert and awake and oriented ENT-normal hearing Neck-no neck masses Lungs-cta b/l no wheezing bibasilar crackles present Heart-s1 and s2 heard regular rate and rhythm no murmurs Abdomen-soft BS present non tender Extremities-b/l lower extremity gross edema present Neuro-alert and awake moves extremities Lab data as noted below. ASSESSMENT & PLAN: ACUTE ON CHRONIC CHF : severe cardiomyopathy with LV dysfunction gross lower extremity edema present Lasix was on hold few days for Hypothermia /rule out sepsis , YASIR currently on IV Lasix with Albumin by Nephrology fluid restriction cont Digoxin Echo : The LV ejection fraction is 15-20% daily weights will f/u cxr shows some improvement continue to monitor LOW TEMP /HYPOTHERMIA ; resolved, temp has been wnl for last 24 hrs Etiology unclear no sepsis BP stable no evidence of CVA blood cultures on admission are negative TSH level wnl ESR 47 , random cortisol level 23.8 -doubt adrenal insufficiency cosyntropin stem test in AM ;shows normal response " D/w Endocrinology in [facility] Dr Baljinder Nicole's mentions all the appropriate endocrine test are done -and appears to be wnl pt does not have adrenal insufficiency , no evidence of hypothyroidism pt being asymptomatic does not believe transfer pt to [place] will offer any more benefit " "Hypothetically pt can be ruled out for Stroke affective brainstem / thermoregulatory area ( hx of cardiac thrombus ) But neurologically pt does not show any evidence of CVA or deficit MRI of brain could not be done as pt has pacemaker CT head with out contrast ordered -no acute change noted" Dr. Avila updated family regarding the Endocrine recommendation form [place] and CT head report Sinusitis /URI symptom improving PO abx with Doxycycline ( avoid Levaquin -may cause worsening of coagulopathy due to drug interaction On Flonase and nasal saline PRN Neb tx for SOB continue same CAD s/p CABG Elevated Troponin Mild elevation in troponin seems to be a chronic elevation from previous lab/ YASIR on CKD stage 3 no complain of chest pain Troponin trended down On aspirin, statin, b-tea, Imdur, resumed , Entresto currently asymptomatic DYSPHAGIA : mentions food getting stuck in this throat makes him cough s/p video swallow today await speech recommendation- recommends mechanical soft diet Acute Kidney Injury superimposed on CKD stage 3 baseline cr 1.5 cr peaked to 2.8 cr 2.1 today on lasix and albumin as per nephrology f/u labs L Ventricular Thrombus inr 5.5 hold coumadin inr 2.8 no thrombus on echo Hyponatremia improved Nephrology on board-appreciate input cont Free water restriction Lasix resumed for CHF na 136 today DM2 poorly controlled Hb A1c > 9 on Lantus and insulin sliding scale on PO Prednisone 20 mg daily pharmacy consulted for glycemic management will monitor Hypothyroidism continue Synthroid DVT PROPHYLAXIS : inr therapeutic DISPOSITION: Pt/OT eval requested social service for d/c planing Vital Signs: Date Time Temp Pulse Resp B/P (MAP) Pulse Ox O2 Delivery O2 Flow Rate FiO2 11/06/17 16:30 68 11/06/17 16:00 Room Air 11/06/17 15:59 36.5 64 18 95/61 (72) 98 Room Air 11/06/17 08:00 Room Air 11/06/17 06:58 36.3 63 18 112/73 (86) 94 Nasal Cannula 2.0 11/05/17 23:10 36.2 73 18 109/71 (84) 97 Room Air 11/05/17 23:00 Nasal Cannula 2.0 Lab Results: Results Past 24 Hours Test 11/05/17 20:05 11/06/17 07:32 11/06/17 07:59 11/06/17 09:47 Range/Units Bedside Glucose 158 79 70-99 mg/dl White Blood Count 5.76 4.8-10.8 K/uL Red Blood Count 4.57 4.7-6.1 M/uL Hemoglobin 14.6 14.0-18.0 g/dL Hematocrit 44.8 42-52 % Mean Corpuscular Volume 98.0 80-100 fL Mean Corpuscular Hemoglobin 31.9 25-34 pg Mean Corpuscular Hemoglobin Concent 32.6 32-36 g/dl Platelet Count 100 130-400 K/uL Neutrophils (%) (Auto) 81.5 % Lymphocytes (%) (Auto) 6.9 % Monocytes (%) (Auto) 8.3 % Eosinophils (%) (Auto) 1.9 % Basophils (%) (Auto) 0.5 % Neutrophils # (Auto) 4.69 1.4-6.5 K/uL Lymphocytes # (Auto) 0.40 1.2-3.4 K/uL Monocytes # (Auto) 0.48 0.11-0.59 K/uL Eosinophils # (Auto) 0.11 0-0.5 K/uL Basophils # (Auto) 0.03 0-0.2 K/uL RDW Standard Deviation 66.2 36.4-46.3 fL RDW Coefficient of Variation 18.6 11.5-14.5 % Immature Granulocyte % (Auto) 0.9 % Immature Granulocyte # (Auto) 0.05 0.00-0.02 K/uL Nucleated RBC Absolute Count (auto) 0.19 0-0 K/uL Nucleated Red Blood Cells % 3.3 % Red Blood Cell Morphology Unremarkable Sodium Level 134 136-145 mmol/L Potassium Level 5.2 3.5-5.1 mmol/L Chloride Level 106 98-107 mmol/L Carbon Dioxide Level 23 21-32 mmol/L Anion Gap 6.0 3-11 mmol/L Blood Urea Nitrogen 145 7-18 mg/dl Creatinine 2.10 0.60-1.40 mg/dl Est Creatinine Clear Calc Drug Dose 30.2 ml/min Estimated GFR () 34.9 Estimated GFR (Non- 30.1 BUN/Creatinine Ratio 68.9 10-20 Random Glucose 82 70-99 mg/dl Calcium Level 9.4 8.5-10.1 mg/dl Test 11/06/17 11:40 11/06/17 16:26 11/06/17 16:48 Range/Units Bedside Glucose 84 61 72 70-99 mg/dl
[2017-11-06] MEDS: INSULIN GLARGINE SOLOSTAR 100 UNITS/ML 3 ML PEN SC SCH (20:44)
[2017-11-07] MEDS: SODIUM CHLORIDE 0.65% NA SOLN 45 ML (OCEAN) SCH ×3 (00:42→12:26)
[2017-11-07] MEDS: LEVOTHYROXINE 175 MCG TAB PO SCH (06:09)
[2017-11-07] MEDS: INSULIN ASPART 100 UNITS/ML 3 ML PEN SC SCH ×2 (06:30→12:02)
[2017-11-07 06:59] LABS: INR 2.3 (0.9-1.1); PROTHROMBIN TIME (PATIENT) 23.5 SECONDS (9.0-12.0)
[2017-11-07 07:23] VITALS: BP 102/62; PULSE 60; TEMP 36.3; O2SAT 94
[2017-11-07 07:56] VITALS: BP 103/67; PULSE 65
[2017-11-07] MEDS: FLUTICASONE PROPIONATE NA SPR 16 GM BTL SCH (07:58)
[2017-11-07] MEDS: GABAPENTIN 100 MG CAP PO SCH ×2 (08:00→13:48)
[2017-11-07] MEDS: ASPIRIN 81 MG ECTAB PO SCH (08:00)
[2017-11-07] MEDS: ATORVASTATIN 40 MG TAB PO SCH (08:01)
[2017-11-07] MEDS: ISOSORBIDE MONONITRATE 30 MG TABCR PO SCH (08:01)
[2017-11-07] MEDS: SACUBITRIL-VALSARTAN 24-26 MG TAB PO SCH (08:01)
[2017-11-07] MEDS: METOPROLOL SUCC 50MG EXT REL TAB PO SCH (08:02)
[2017-11-07] MEDS: NYSTATIN SUSP 500,000 U/5 ML UDC PO SCH ×2 (08:02→13:48)
[2017-11-07 09:27] LABS: CALCIUM 9.1 mg/dl (8.5-10.1); CREATININE 2.31 mg/dl (0.60-1.40)
[2017-11-07] MEDS: ALBUMIN 25% 50 ML with FUROSEMIDE INJ 40 MG IV SCH ×2 (09:42)
[2017-11-07 09:47] VITALS: PULSE 66; O2SAT 96
[2017-11-07 12:00] VITALS: O2SAT 96
--- NOTE | 2017-11-07 13:02 | Discharge Instructions ---
Discharge Instructions Date of Service Nov 07, 2017. Admission Reason for Admission: Dyspnea, Elevated Troponin Discharge Discharge Diagnosis / Problem: sob. acute on chronic systolic chf, arf Discharge Goals Goal(s): Decrease discomfort, Improve function Activity Recommendations Activity Level: Up Ad Esther Therapies: Physical Therapy, Occupational Therapy, Speech Therapy . Additional Information Patient informed of condition: Yes Advance Directives: Yes DNR: No Level of Care: Skilled Communicable Disease: No Prognosis: Stable Oxygen at (LPM): 2lts Gooden Catheter: No Instructions / Follow-Up Instructions / Follow-Up FOLLOWUP WITH FAMILY DOCTOR IN 5-7DAYS FOLLOWUP WITH NEPHROLOGY IN ONE WEEK FOLLOWUP WITH CARDIOLOGY IN 2-3 WEEKS TO USE STOCKINGS FOR LOWER EXTREMITY EDEMA. LAB: BMP IN ONE WEEK AND FOLLOW RESULTS WITH FAMILY DOCTOR AND NEPHROLOGY. MONITOR PT/INR SPEECH RECOMMENDATIONS: 1.Mechanical soft diet and NECTAR thick liquids. Slippery. Avoid foods that are dry, thick, pasty, and doughy. Use condiments to assist in keeping food moist, such as gravy or sauce. 2.Aspiration and GERD precautions, NO straws, fully upright for meals and for 30 minutes after meals. Head of bed to be elevated to 30 degrees at all times to include while sleep. 3.Stringent oral care to include brushing all surfaces of the mouth and tongue prior to and after meals, and before bed. 4.Small single cup sips, small bites. 5.GI consult for esophageal dysfunction as indicated. 6.Would benefit from continued speech upon discharge for further dysphagia therapy to include thermal stimulation and generalized pharyngeal strengthening exercises along with education and carryover of recommendations as needed. May benefit from a repeat study after he completes dysphagia therapy. Current Hospital Diet Patient's current hospital diet: AHA Diet (Heart Healthy), Diabetes Type 2 Diet Discharge Diet Recommended Diet: AHA Diet (Heart Healthy), Diabetes Type 2 Diet Fluid Restriction: 1500 ml (6 cups) Diet Texture: Mechanical Soft (ground) Pending Studies Studies pending at discharge: no Physician Orders On Transfer Special Precautions: FALL AND ASPIRATION PRECAUTIONS Vital Signs: EVERY 8HRS Additional Orders: Call your Primary Care doctor if any of the following symptoms or problems start or get worse: * Shortness of breath or difficulty breathing * Wake up at night short of breath * Chest pain * Cough * Swelling of your hands, feet, or legs * More fatigued or tired with your normal activity * Palpitations - sudden fast heart beats WEIGHT * Weigh yourself every morning after using the bathroom. * Use the same scale. * Wear the same amount of clothing. * Write your weight down on a chart. * Call your Primary Care doctor if you gain more than 2-3 pounds in 1-2 days. MEDICATIONS * Use this discharge instruction sheet for medication instructions. * Take your medications at the time your doctor ordered. * Do not skip a dose of your medicines. * If you miss a dose of medicine, take it as soon as possible, but DO NOT DOUBLE A DOSE. * Read your medicine information when you get home. * Know all of the side effects of your medicine. If in doubt, ask your pharmacist * Call your Primary Care doctor's office if you have any side effects. * Be sure all of your doctors know what medicine and herbs you take (including cold, flu, and herbal medicine). Take the following with you to your follow-up doctor appointments: * Weight Chart * Medication List * List of questions Do not drink excessive alcohol, beer or wine. Laboratory Results Hemoglobin A1c Test 10/28/17 00:23 Range/Units Estimated Average Glucose 212 mg/dl Hemoglobin A1c 9.0 H 4.5-5.6 % Medical Emergencies . Who to Call and When: Medical Emergencies: If at any time you feel your situation is an emergency, please call 911 immediately. . Non-Emergent Contact Non-Emergency issues call your: Primary Care Provider . . "Provider Documentation" section prepared by Eduardo Acuña. . Core Measure Problem Core Measures: None
--- NOTE | 2017-11-07 13:07 | Progress Note ---
Internal Med Progress Note Date of Service: Nov 07, 2017. Provider Documentation: SUBJECTIVE: sitting on the chair comfortably SOB GETTING BETTER afebrile no pain has swelling in the legs still though getting better OBJECTIVE: Vital Signs-as noted below Exam: General-alert and awake and oriented ENT-normal hearing Neck-no neck masses Lungs-cta b/l no wheezing mild bibasilar crackles present Heart-s1 and s2 heard regular rate and rhythm no murmurs Abdomen-soft BS present non tender Extremities-b/l lower extremity gross edema present-improving Neuro-alert and awake moves extremities Lab data as noted below. ASSESSMENT & PLAN: ACUTE ON CHRONIC systolic CHF : severe cardiomyopathy with LV dysfunction gross lower extremity edema present Lasix was on hold few days for Hypothermia /rule out sepsis , YASIR currently on IV Lasix with Albumin by Nephrology fluid restriction cont Digoxin Echo : The LV ejection fraction is 15-20% daily weights will f/u cxr shows some improvement iv Lasix to be stopped today as Cr rising d/w nephrology- will d/c on home diuretics and followup as out patient LOW TEMP /HYPOTHERMIA ; resolved, temp has been wnl for last 24 hrs Etiology unclear no sepsis BP stable no evidence of CVA blood cultures on admission are negative TSH level wnl ESR 47 , random cortisol level 23.8 -doubt adrenal insufficiency cosyntropin stem test in AM ;shows normal response " D/w Endocrinology in [facility] Dr Baljinder Nicole's mentions all the appropriate endocrine test are done -and appears to be wnl pt does not have adrenal insufficiency , no evidence of hypothyroidism pt being asymptomatic does not believe transfer pt to [place] will offer any more benefit " "Hypothetically pt can be ruled out for Stroke affective brainstem / thermoregulatory area ( hx of cardiac thrombus ) But neurologically pt does not show any evidence of CVA or deficit MRI of brain could not be done as pt has pacemaker CT head with out contrast ordered -no acute change noted" Dr. Avila updated family regarding the Endocrine recommendation form [place] and CT head report Sinusitis /URI symptom improving PO abx with Doxycycline ( avoid Levaquin -may cause worsening of coagulopathy due to drug interaction On Flonase and nasal saline PRN Neb tx for SOB CAD s/p CABG Elevated Troponin Mild elevation in troponin seems to be a chronic elevation from previous lab/ YASIR on CKD stage 3 no complain of chest pain Troponin trended down On aspirin, statin, b-tea, Imdur, resumed , Entresto currently asymptomatic DYSPHAGIA : mentions food getting stuck in this throat makes him cough s/p video swallow today await speech recommendation- recommends mechanical soft diet Acute Kidney Injury superimposed on CKD stage 3 baseline cr 1.5 cr peaked to 2.8 cr 2.3 today iv lasix stopped f/u labs with pcp and nephrology L Ventricular Thrombus inr 5.5 hold coumadin inr 2.3 no thrombus on echo Hyponatremia improved Nephrology on board-appreciate input cont Free water restriction Lasix resumed for CHF na 135 today DM2 poorly controlled Hb A1c > 9 on Lantus and insulin sliding scale on PO Prednisone 20 mg daily pharmacy consulted for glycemic management d/c on home meds Hypothyroidism continue Synthroid Discharge to snf today Vital Signs: Date Time Temp Pulse Resp B/P (MAP) Pulse Ox O2 Delivery O2 Flow Rate FiO2 11/07/17 09:47 66 16 96 Nasal Cannula 2.0 11/07/17 07:56 65 103/67 (79) 11/07/17 07:23 36.3 60 18 102/62 (75) 94 11/07/17 00:00 Room Air 11/06/17 23:48 36.3 76 18 106/71 (83) 96 Room Air 11/06/17 22:00 36.8 69 18 108/74 (85) 92 11/06/17 21:46 72 18 107/72 (84) 98 Room Air 11/06/17 21:15 36.7 70 18 104/68 (80) 97 Room Air 11/06/17 16:30 68 11/06/17 16:00 Room Air 11/06/17 15:59 36.5 64 18 95/61 (72) 98 Room Air Lab Results: Results Past 24 Hours Test 11/06/17 16:26 11/06/17 16:48 11/06/17 20:06 11/07/17 06:26 Range/Units Bedside Glucose 61 72 107 70-99 mg/dl Prothrombin Time 23.5 9.0-12.0 SECONDS Prothromb Time International Ratio 2.3 0.9-1.1 Sodium Level 135 136-145 mmol/L Potassium Level 5.0 3.5-5.1 mmol/L Chloride Level 107 98-107 mmol/L Carbon Dioxide Level 19 21-32 mmol/L Anion Gap 10.0 3-11 mmol/L Blood Urea Nitrogen 146 7-18 mg/dl Creatinine 2.31 0.60-1.40 mg/dl Est Creatinine Clear Calc Drug Dose 27.7 ml/min Estimated GFR () 31.1 Estimated GFR (Non- 26.8 BUN/Creatinine Ratio 63.0 10-20 Random Glucose 48 70-99 mg/dl Calcium Level 9.1 8.5-10.1 mg/dl Magnesium Level 2.0 1.8-2.4 mg/dl Test 11/07/17 07:33 11/07/17 07:49 11/07/17 08:09 11/07/17 11:08 Range/Units Bedside Glucose 52 54 96 136 70-99 mg/dl
--- NOTE | 2017-11-07 13:19 | Discharge Summary ---
Discharge Summary Date of Service Nov 07, 2017. Discharge Summary Admission Date: Oct 24, 2017 at 23:45 Discharge Date: Nov 07, 2017 Discharge Disposition: [facility] facility Principal Diagnosis: ACUTE SYSTOLIC CHF ARF Secondary Diagnoses/Problems: (1) CHF (congestive heart failure) Status: Chronic (2) DM2 (diabetes mellitus, type 2) Status: Chronic (3) Heart disease Status: Chronic (4) History of left heart catheterization (LHC) Status: Chronic (5) HLD (hyperlipidemia) Status: Chronic (6) HTN (hypertension) Status: Chronic (7) Hypothyroidism Status: Chronic (8) ICD (implantable cardioverter-defibrillator) in place Status: Chronic (9) Ischemic cardiomyopathy Status: Chronic Procedures: CXR: 1. Small bilateral pleural effusions. 2. Bibasilar densities are nonspecific but favor atelectasis from the pleural effusion. Stable cardiomegaly. RENAL US: 1. Normal renal ultrasound. No obstruction. 2. Bilateral pleural effusions and trace perihepatic ascites. HEAD CT: There is no hemorrhage, mass effect, or evidence of acute territorial ischemia by CT criteria. BARIUM SWALLOW: Limited study secondary to patient aspiration. The study was then terminated. Follow-up with video swallow study with speech therapy recommended. VIDEO SWALLOW: 1. Multiple episodes of a small amount of tracheal aspiration with thin liquids. 2. No aspiration with the remainder of the consistencies Consultations: nephrology Medication Reconciliation Continued Medications: Aspirin (Aspirin Ec) 81 Mg Tab 81 MG PO DAILY Atorvastatin (Lipitor) 80 Mg Tab 40 MG PO DAILY, TAB Azelastine HCl (Azelastine Hydrochloride) 0.1 % Spr 1 SPRAY SOHEILA DAILY PRN for Digoxin (Digoxin) 0.125 Mg Tab 0.125 MG PO DAILY Gabapentin (Gabapentin) 100 Mg Cap 100 MG PO TID Insulin Glargine (Lantus Solostar) 100 Unit/Ml Inj 12 UNITS SC HS, PEN Isosorbide Mononitrate Ext Rel (Imdur Ext Rel) 30 Mg Ertab 15 MG PO QAM, TAB Levothyroxine Sodium (Levothyroxine Sodium) 175 Mcg Tab 175 MG PO DAILY Metoprolol Succinate (Metoprolol Succinate ER) 50 Mg Tabcr 50 MG PO DAILY Nitroglycerin (Nitrostat) 0.4 Mg/1 Tab Subl 0.4 MG SL UD PRN for Chest Pain for 30 Days, #25 Sacubitril-Valsartan (Entresto 24-26 mg) 1 Tab Tab 1 TAB PO BID Torsemide (Demadex) 20 Mg Tab 20 MG PO BID, TAB Warfarin Sod (Coumadin) 5 Mg Tab 5 MG PO DAILY Admission Information HPI (per Admitting provider): This is a 76 year old male with a PMH of CAD s/p CABG, ischemic cardiomyopathy and severe LV dysfunction with EF ~ 15% s/p biventricular ICD placement, L ventricular apical thrombus on Coumadin, L femoral endarterectomy and angio, HTN , DM2, HLD, hypothyroidism, CKD stage 3 - presents to the hospital with shortness of breath and head congestion. States that for the past few days, he felt a sinus headache with congestion and then became short of breath as well. Had some chills, but denied fevers. Denied nausea/vomiting/diarrhea. No chest pain or palpitations. Had a pacemaker check on 10/20. No other issues to note. On presentation, he states that he feels better after getting some antibiotics. 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, no motor/sensory deficits, alert , normal mood/affect, oriented x 3 Skin: normal color Lymphatic: no adenopathy Hospital Course ACUTE ON CHRONIC systolic CHF : severe cardiomyopathy with LV dysfunction gross lower extremity edema present Lasix was on hold few days for Hypothermia /rule out sepsis , YASIR currently on IV Lasix with Albumin by Nephrology fluid restriction cont Digoxin Echo : The LV ejection fraction is 15-20% daily weights will f/u cxr shows some improvement iv Lasix to be stopped today as Cr rising d/w nephrology- will d/c on home diuretics and followup as out patient LOW TEMP /HYPOTHERMIA ; resolved, temp has been wnl for last 24 hrs Etiology unclear no sepsis BP stable no evidence of CVA blood cultures on admission are negative TSH level wnl ESR 47 , random cortisol level 23.8 -doubt adrenal insufficiency cosyntropin stem test in AM ;shows normal response " D/w Endocrinology in [facility] Dr Baljinder Nicole's mentions all the appropriate endocrine test are done -and appears to be wnl pt does not have adrenal insufficiency , no evidence of hypothyroidism pt being asymptomatic does not believe transfer pt to [employer] [facility] will offer any more benefit " "Hypothetically pt can be ruled out for Stroke affective brainstem / thermoregulatory area ( hx of cardiac thrombus ) But neurologically pt does not show any evidence of CVA or deficit MRI of brain could not be done as pt has pacemaker CT head with out contrast ordered -no acute change noted" Dr. Avila updated family regarding the Endocrine recommendation form [employer] [facility] and CT head report Sinusitis /URI symptom improving PO abx with Doxycycline ( avoid Levaquin -may cause worsening of coagulopathy due to drug interaction On Flonase and nasal saline PRN Neb tx for SOB CAD s/p CABG Elevated Troponin Mild elevation in troponin seems to be a chronic elevation from previous lab/ YASIR on CKD stage 3 no complain of chest pain Troponin trended down On aspirin, statin, b-tea, Imdur, resumed , Entresto currently asymptomatic DYSPHAGIA : mentions food getting stuck in this throat makes him cough s/p video swallow today await speech recommendation- recommends mechanical soft diet Speech Therapy Discharge Instructions * SUMMARY/RECOMMENDATIONS: This patient presents with moderate coleen-pharyngeal dysphagia. He also presents with signs of esophageal dysphagia. Recommendations are as follows: 1.Mechanical soft diet and NECTAR thick liquids. Slippery. Avoid foods that are dry, thick, pasty, and doughy. Use condiments to assist in keeping food moist, such as gravy or sauce. 2.Aspiration and GERD precautions, NO straws, fully upright for meals and for 30 minutes after meals. Head of bed to be elevated to 30 degrees at all times to include while sleep. 3.Stringent oral care to include brushing all surfaces of the mouth and tongue prior to and after meals, and before bed. 4.Small single cup sips, small bites. 5.GI consult for esophageal dysfunction as indicated. 6.Would benefit from continued speech upon discharge for further dysphagia therapy to include thermal stimulation and generalized pharyngeal strengthening exercises along with education and carryover of recommendations as needed. May benefit from a repeat study after he completes dysphagia therapy. Acute Kidney Injury superimposed on CKD stage 3 baseline cr 1.5 cr peaked to 2.8 cr 2.3 today iv lasix stopped f/u labs with pcp and nephrology L Ventricular Thrombus inr 5.5 hold coumadin inr 2.3 no thrombus on echo Hyponatremia improved Nephrology on board-appreciate input cont Free water restriction Lasix resumed for CHF na 135 today DM2 poorly controlled Hb A1c > 9 on Lantus and insulin sliding scale on PO Prednisone 20 mg daily pharmacy consulted for glycemic management d/c on home meds Hypothyroidism continue Synthroid Discharge to snf today Total time spent on discharge = 40MINUTES This includes examination of the patient, discharge planning, medication reconciliation, and communication with other providers. Discharge Instructions Please take this sheet to every appointment for the next month Discharge Instructions Date of Service Nov 07, 2017. Admission Reason for Admission: Dyspnea, Elevated Troponin Discharge Discharge Diagnosis / Problem: sob. acute on chronic systolic chf, arf Discharge Goals Goal(s): Decrease discomfort, Improve function Activity Recommendations Activity Level: Up Ad Esther Therapies: Physical Therapy, Occupational Therapy, Speech Therapy . Additional Information Patient informed of condition: Yes Advance Directives: Yes DNR: No Level of Care: Skilled Communicable Disease: No Prognosis: Stable Oxygen at (LPM): 2lts Gooden Catheter: No Instructions / Follow-Up Instructions / Follow-Up FOLLOWUP WITH FAMILY DOCTOR IN 5-7DAYS FOLLOWUP WITH NEPHROLOGY IN ONE WEEK FOLLOWUP WITH CARDIOLOGY IN 2-3 WEEKS TO USE STOCKINGS FOR LOWER EXTREMITY EDEMA. LAB: BMP IN ONE WEEK AND FOLLOW RESULTS WITH FAMILY DOCTOR AND NEPHROLOGY. MONITOR PT/INR SPEECH RECOMMENDATIONS: 1.Mechanical soft diet and NECTAR thick liquids. Slippery. Avoid foods that are dry, thick, pasty, and doughy. Use condiments to assist in keeping food moist, such as gravy or sauce. 2.Aspiration and GERD precautions, NO straws, fully upright for meals and for 30 minutes after meals. Head of bed to be elevated to 30 degrees at all times to include while sleep. 3.Stringent oral care to include brushing all surfaces of the mouth and tongue prior to and after meals, and before bed. 4.Small single cup sips, small bites. 5.GI consult for esophageal dysfunction as indicated. 6.Would benefit from continued speech upon discharge for further dysphagia therapy to include thermal stimulation and generalized pharyngeal strengthening exercises along with education and carryover of recommendations as needed. May benefit from a repeat study after he completes dysphagia therapy. Current Hospital Diet Patient's current hospital diet: AHA Diet (Heart Healthy), Diabetes Type 2 Diet Discharge Diet Recommended Diet: AHA Diet (Heart Healthy), Diabetes Type 2 Diet Fluid Restriction: 1500 ml (6 cups) Diet Texture: Mechanical Soft (ground) Pending Studies Studies pending at discharge: no Physician Orders On Transfer Special Precautions: FALL AND ASPIRATION PRECAUTIONS Vital Signs: EVERY 8HRS Additional Orders: Call your Primary Care doctor if any of the following symptoms or problems start or get worse: * Shortness of breath or difficulty breathing * Wake up at night short of breath * Chest pain * Cough * Swelling of your hands, feet, or legs * More fatigued or tired with your normal activity * Palpitations - sudden fast heart beats WEIGHT * Weigh yourself every morning after using the bathroom. * Use the same scale. * Wear the same amount of clothing. * Write your weight down on a chart. * Call your Primary Care doctor if you gain more than 2-3 pounds in 1-2 days. MEDICATIONS * Use this discharge instruction sheet for medication instructions. * Take your medications at the time your doctor ordered. * Do not skip a dose of your medicines. * If you miss a dose of medicine, take it as soon as possible, but DO NOT DOUBLE A DOSE. * Read your medicine information when you get home. * Know all of the side effects of your medicine. If in doubt, ask your pharmacist * Call your Primary Care doctor's office if you have any side effects. * Be sure all of your doctors know what medicine and herbs you take (including cold, flu, and herbal medicine). Take the following with you to your follow-up doctor appointments: * Weight Chart * Medication List * List of questions Do not drink excessive alcohol, beer or wine. Laboratory Results Hemoglobin A1c Test 10/28/17 00:23 Range/Units Estimated Average Glucose 212 mg/dl Hemoglobin A1c 9.0 H 4.5-5.6 % Medical Emergencies . Who to Call and When: Medical Emergencies: If at any time you feel your situation is an emergency, please call 911 immediately. . Non-Emergent Contact Non-Emergency issues call your: Primary Care Provider .
[2017-11-07 14:19] VITALS: BP 103/67; PULSE 66; TEMP 36.3
[2017-11-07] MEDS ORDERED: NYSS5 PO (14:28)
[2017-11-07 15:30] VITALS: O2SAT 98
== END 2017-11-07 15:58 | DRG 682 ==
LOC: C.EDB 19:39 → C.2T 23:45 → ENRESERV 10-25 00:07 → C.MS2W 11-01 12:21
PROVIDERS: ADMIT Family Medicine; ATTEND Internal Medicine
DX: N17.0 Acute kidney failure with tubular necrosis (principal); I50.23 Acute on chronic systolic (congestive) heart failure; E87.0 Hyperosmolality and hypernatremia; I13.0 Hypertensive heart and chronic kidney disease with heart failure and stage 1 through stage 4 chronic kidney disease, or unspecified chronic kidney disease; R78.89 Finding of other specified substances, not normally found in blood; J32.9 Chronic sinusitis, unspecified; R13.10 Dysphagia, unspecified; R68.0 Hypothermia, not associated with low environmental temperature; E11.22 Type 2 diabetes mellitus with diabetic chronic kidney disease; N18.3 Chronic kidney disease, stage 3 (moderate); I25.10 Atherosclerotic heart disease of native coronary artery without angina pectoris; I51.3 Intracardiac thrombosis, not elsewhere classified; I25.5 Ischemic cardiomyopathy; E03.9 Hypothyroidism, unspecified; I73.9 Peripheral vascular disease, unspecified; Z79.899 Other long term (current) drug therapy; Z79.4 Long term (current) use of insulin; Z79.01 Long term (current) use of anticoagulants; Z79.82 Long term (current) use of aspirin; Z95.1 Presence of aortocoronary bypass graft; Z95.810 Presence of automatic (implantable) cardiac defibrillator; Z83.3 Family history of diabetes mellitus